=== PATIENT | female | born 1950 | race Caucasian/White ===

== ENCOUNTER 2016-09-07 07:08 | Outpatient (CLI) | payer MEDICARE, OTHER | END 2016-09-07 07:09 | disposition home or self-care (01) | DX: E78.5 Hyperlipidemia, unspecified (principal); E03.9 Hypothyroidism, unspecified ==

== ENCOUNTER 2016-09-28 11:02 | Outpatient (CLI) | payer MEDICARE, OTHER | END 2016-09-28 11:03 | disposition home or self-care (01) | DX: E78.5 Hyperlipidemia, unspecified (principal); R42 Dizziness and giddiness ==

== ENCOUNTER 2017-03-01 12:44 | Outpatient (CLI) | payer MEDICARE, OTHER ==
--- NOTE | 2017-03-02 12:39 | Mammography Report ---
DIGITAL SCREENING MAMMOGRAM: 03/01/2017 CLINICAL INDICATION: A 66-year-old nulliparous patient, for screening. COMPARISON: 01/2016, 12/2014, 12/2013, 09/2012, 09/2011, 08/2010, 08/2009. TECHNIQUE: Routine CC and MLO projections were obtained of the breasts. FINDINGS: The breasts demonstrate scattered fibroglandular densities bilaterally. Coarse and punctat e, typically benign calcifications are present. No suspicious masses, clustered microcalcifications, or regions of architectural distortion are identified. IMPRESSION: BENIGN FINDINGS. RECOMMENDATION: ROUTINE ANNUAL SCREENING UNLESS OTHERWISE CLINICALLY INDICATED. BIRADS CATEGORY 2-BENIGN FINDINGS. STANDARD QUALIFYING STATEMENTS 1. This examination was reviewed with the aid of Computer-Aided Detection (CAD). 2. A negative or benign imaging report should not delay biopsy if clinically suspicious findings are present. Consider surgical consultation if warranted. More than 5% of cancers are not identified by i maging. 3. Dense breasts may obscure an underlying neoplasm. JOB #: [id number] EXT JOB #:[id number]
== END 2017-03-01 12:45 | disposition home or self-care (01) ==
LOC: DI 12:44
PROVIDERS: ATTEND Family Medicine
DX: Z12.31 Encounter for screening mammogram for malignant neoplasm of breast (principal)
CPT/HCPCS: 77067

== ENCOUNTER 2017-03-02 15:31 | Outpatient (CLI) | payer MEDICARE, OTHER ==
[2017-03-02 13:42] LABS: ALBUMIN/GLOBULIN RATIO 1.2 (1.0-2.2); BILIRUBIN,TOTAL 0.6 mg/dL (0.2-1.0); BUN - BLOOD UREA NITROGEN 21 mg/dL (6-20); CALCIUM 9.5 mg/dL (8.5-10.3); CARBON DIOXIDE - CO2 26 mmol/L (21-32); CHLORIDE 104 mmol/L (101-111); CHOLESTEROL 179 mg/dL; CREATININE 0.9 mg/dL (0.4-1.0); GFR - MDRD 62 (>89); GLUCOSE 88 mg/dL (70-100); HDL CHOLESTEROL 90 mg/dL; LDL/HDL RATIO 0.9 (<4.4); POTASSIUM 3.7 mmol/L (3.5-5.0); SODIUM 137 mmol/L (135-145); TOTAL PROTEIN 7.6 g/dL (6.7-8.2); TRIGLYCERIDES 62 mg/dL; VLDL CHOLESTEROL 12 mg/dL
== END 2017-03-02 15:32 | disposition home or self-care (01) ==
LOC: LAB.WCP 15:31
PROVIDERS: ATTEND Family Medicine
DX: E78.5 Hyperlipidemia, unspecified (principal); E03.9 Hypothyroidism, unspecified
CPT/HCPCS: 36415; 80053; 80061; 84443

== ENCOUNTER 2017-09-12 08:00 | Outpatient (CLI) | payer MEDICARE, OTHER ==
[2017-09-12 13:18] LABS: BASOPHILS % (AUTO) 0.6 %; HGB - HEMOGLOBIN 13.6 g/dL (12.0-16.0); LYMPHOCYTES # (AUTO) 1.4 10^3/uL (1.5-3.5); LYMPHOCYTES % (AUTO) 33.7 %; MEAN CORPUSCULAR HEMOGLOBIN 31.9 pg (27.0-31.0); MEAN CORPUSCULAR HGB CONC 33.7 g/dL (32.0-36.0); MEAN CORPUSCULAR VOLUME 94.7 fL (81.0-99.0); MEAN PLATELET VOLUME 9.7 fL (7.9-10.8); MONOCYTES # (AUTO) 0.3 10^3/uL (0.0-1.0); MONOCYTES % (AUTO) 8.1 %; NEUTROPHILS # (AUTO) 2.3 10^3/uL (1.5-6.6); NEUTROPHILS % (AUTO) 56.6 %; PLT - PLATELET COUNT 167 10^3/uL (130-450); RED BLOOD COUNT 4.25 10^6/uL (4.20-5.40); RED CELL DISTRIBUTION WIDTH 12.5 % (12.0-15.0); WHITE BLOOD COUNT 4.1 x10^3/uL (4.8-10.8)
[2017-09-12 13:49] LABS: ALBUMIN 4.3 g/dL (3.2-5.5); ALBUMIN/GLOBULIN RATIO 1.3 (1.0-2.2); ALKALINE PHOSPHATASE 43 IU/L (42-121); ALT ALANINE AMINOTRANSFERASE 21 IU/L (10-60); AST ASPARTATE AMINOTRANSFERASE 23 IU/L (10-42); BILIRUBIN,TOTAL 0.5 mg/dL (0.2-1.0); BUN - BLOOD UREA NITROGEN 17 mg/dL (6-20); CALCIUM 9.4 mg/dL (8.5-10.3); CARBON DIOXIDE - CO2 26 mmol/L (21-32); CHLORIDE 104 mmol/L (101-111); CHOL/HDL RATIO 2.3 (<4.4); CHOLESTEROL 182 mg/dL; CREATININE 0.8 mg/dL (0.4-1.0); GFR - MDRD 71 (>89); GLUCOSE 90 mg/dL (70-100); HDL CHOLESTEROL 80 mg/dL; LDL CHOLESTEROL,CALCULATED 93 mg/dL; LDL/HDL RATIO 1.2 (<4.4); SODIUM 136 mmol/L (135-145); TOTAL PROTEIN 7.5 g/dL (6.7-8.2); VLDL CHOLESTEROL 9 mg/dL
== END 2017-09-12 08:01 | disposition home or self-care (01) ==
LOC: LAB.WCP 08:00
PROVIDERS: ATTEND Family Medicine
DX: E78.00 Pure hypercholesterolemia, unspecified (principal); E78.5 Hyperlipidemia, unspecified; E03.9 Hypothyroidism, unspecified; R42 Dizziness and giddiness
CPT/HCPCS: 36415; 80053; 80061; 83721; 84443; 85025

== ENCOUNTER 2018-03-21 11:42 | Outpatient (CLI) | payer MEDICARE, OTHER ==
--- NOTE | 2018-03-22 11:49 | Mammography Report ---
Reason: SCREENING MAMMO Procedure Date: 03/21/2018 Accession Number: [id number] / [id number] Procedure: [facility] - Screening Mammo w/Edy CPT Code: FULL RESULT: EXAM: Screening Mammo w/Edy DATE: 03/21/2018 12:04 PM CLINICAL HISTORY: Nulliparous patient for routine screening. TECHNIQUE: Bilateral CC and MLO views were obtained. COMPARISON: 03/01/2017, 01/27/2016, 01/19/2015, 01/14/2014, 10/07/2012, 10/05/2011 and 09/13/2010 FINDINGS: There are scattered fibroglandular densities. There is no significant interval change. No suspicious masses, clustered microcalcifications, or regions of architectural distortion are identified. IMPRESSION: Negative examination RECOMMENDATION: Routine annual screening unless otherwise clinically indicated. BIRADS CATEGORY 1: Negative STANDARD QUALIFYING STATEMENTS: 1. This examination was not reviewed with the aid of Computer-Aided Detection (CAD). 2. A negative or benign imaging report should not delay biopsy if clinically suspicious findings are present. Consider surgical consultation if warrented. More than 5% of cancers are not identified by imaging. 3. Dense breasts may obscure an underlying neoplasm. 4. This examination was reviewed with the aid of 3D breast imaging (tomosynthesis).
== END 2018-03-21 11:43 | disposition home or self-care (01) ==
LOC: DI 11:42
DX: Z12.31 Encounter for screening mammogram for malignant neoplasm of breast (principal)
CPT/HCPCS: 77063; 77067

== ENCOUNTER 2018-03-28 07:05 | Outpatient (CLI) | payer MEDICARE, OTHER ==
[2018-03-28 12:32] LABS: BASOPHILS % (AUTO) 0.4 %; EOSINOPHILS # (AUTO) 0.1 10^3/uL (0.0-0.7); EOSINOPHILS % (AUTO) 1.7 %; HGB - HEMOGLOBIN 13.5 g/dL (12.0-16.0); LYMPHOCYTES # (AUTO) 1.4 10^3/uL (1.5-3.5); LYMPHOCYTES % (AUTO) 32.9 %; MEAN CORPUSCULAR HGB CONC 34.7 g/dL (32.0-36.0); MEAN CORPUSCULAR VOLUME 95.2 fL (81.0-99.0); MEAN PLATELET VOLUME 9.4 fL (7.9-10.8); MONOCYTES # (AUTO) 0.4 10^3/uL (0.0-1.0); MONOCYTES % (AUTO) 9.5 %; NEUTROPHILS # (AUTO) 2.3 10^3/uL (1.5-6.6); NEUTROPHILS % (AUTO) 55.5 %; PLT - PLATELET COUNT 196 10^3/uL (130-450); RED BLOOD COUNT 4.09 10^6/uL (4.20-5.40); RED CELL DISTRIBUTION WIDTH 12.6 % (12.0-15.0); WHITE BLOOD COUNT 4.1 x10^3/uL (4.8-10.8)
[2018-03-28 12:36] LABS: ALBUMIN 4.1 g/dL (3.2-5.5); ALBUMIN/GLOBULIN RATIO 1.2 (1.0-2.2); ALKALINE PHOSPHATASE 53 IU/L (42-121); ALT ALANINE AMINOTRANSFERASE 19 IU/L (10-60); AST ASPARTATE AMINOTRANSFERASE 21 IU/L (10-42); BILIRUBIN,TOTAL 0.7 mg/dL (0.2-1.0); BUN - BLOOD UREA NITROGEN 18 mg/dL (6-20); CALCIUM 9.5 mg/dL (8.5-10.3); CARBON DIOXIDE - CO2 26 mmol/L (21-32); CHLORIDE 103 mmol/L (101-111); CHOL/HDL RATIO 1.9 (<4.4); CHOLESTEROL 175 mg/dL; CREATININE 0.8 mg/dL (0.4-1.0); GFR - MDRD 71 (>89); GLUCOSE 96 mg/dL (70-100); HDL CHOLESTEROL 94 mg/dL; LDL CHOLESTEROL,CALCULATED 69 mg/dL; LDL/HDL RATIO 0.7 (<4.4); SODIUM 137 mmol/L (135-145); TOTAL PROTEIN 7.5 g/dL (6.7-8.2); VLDL CHOLESTEROL 12 mg/dL
== END 2018-03-28 07:06 ==
LOC: LAB.WCP 07:05
PROVIDERS: ATTEND Family Medicine
DX: E78.5 Hyperlipidemia, unspecified (principal); E03.9 Hypothyroidism, unspecified; K50.90 Crohn's disease, unspecified, without complications; R42 Dizziness and giddiness
CPT/HCPCS: 36415; 80053; 80061; 83721; 84443; 85025

== ENCOUNTER 2018-11-08 08:00 | Outpatient (CLI) | payer MEDICARE, OTHER ==
[2018-11-08 14:23] LABS: ALBUMIN/GLOBULIN RATIO 1.2 (1.0-2.2); ALKALINE PHOSPHATASE 55 IU/L (42-121); ALT ALANINE AMINOTRANSFERASE 19 IU/L (10-60); AST ASPARTATE AMINOTRANSFERASE 23 IU/L (10-42); BILIRUBIN,TOTAL 0.8 mg/dL (0.2-1.0); BUN - BLOOD UREA NITROGEN 14 mg/dL (6-20); CALCIUM 9.8 mg/dL (8.5-10.3); CARBON DIOXIDE - CO2 25 mmol/L (21-32); CHLORIDE 104 mmol/L (101-111); CHOLESTEROL 181 mg/dL; CREATININE 0.9 mg/dL (0.4-1.0); GFR - MDRD 62 (>89); GLUCOSE 90 mg/dL (70-100); HDL CHOLESTEROL 92 mg/dL; LDL CHOLESTEROL,CALCULATED 73 mg/dL; LDL/HDL RATIO 0.8 (<4.4); SODIUM 138 mmol/L (135-145); TOTAL PROTEIN 7.3 g/dL (6.7-8.2); VLDL CHOLESTEROL 16 mg/dL
== END 2018-11-08 23:59 | disposition home or self-care (01) ==
LOC: LAB.WCP 08:00
PROVIDERS: ATTEND Family Medicine
DX: E78.5 Hyperlipidemia, unspecified (principal); E03.9 Hypothyroidism, unspecified
CPT/HCPCS: 36415; 80053; 80061; 83721; 84443

== ENCOUNTER 2018-12-04 08:00 | Outpatient (CLI) | payer MEDICARE, OTHER ==
[2018-12-04 18:38] LABS: BASOPHILS % (AUTO) 0.2 %; EOSINOPHILS % (AUTO) 0.6 %; HGB - HEMOGLOBIN 12.2 g/dL (12.0-16.0); LYMPHOCYTES # (AUTO) 1.8 10^3/uL (1.5-3.5); MEAN CORPUSCULAR HEMOGLOBIN 31.6 pg (27.0-31.0); MEAN CORPUSCULAR HGB CONC 32.5 g/dL (32.0-36.0); MEAN CORPUSCULAR VOLUME 97.2 fL (81.0-99.0); MEAN PLATELET VOLUME 11.5 fL (7.9-10.8); MONOCYTES # (AUTO) 0.5 10^3/uL (0.0-1.0); MONOCYTES % (AUTO) 8.8 %; NEUTROPHILS # (AUTO) 2.9 10^3/uL (1.5-6.6); NEUTROPHILS % (AUTO) 56.2 %; PLT - PLATELET COUNT 180 10^3/uL (130-450); RED BLOOD COUNT 3.86 10^6/uL (4.20-5.40); RED CELL DISTRIBUTION WIDTH 12.4 % (12.0-15.0); WHITE BLOOD COUNT 5.1 x10^3/uL (4.8-10.8)
[2018-12-04 18:41] LABS: ALBUMIN/GLOBULIN RATIO 1.3 (1.0-2.2); BILIRUBIN,TOTAL 0.6 mg/dL (0.2-1.0); CALCIUM 9.5 mg/dL (8.5-10.3); CREATININE 0.8 mg/dL (0.4-1.0)
== END 2018-12-04 23:59 | disposition home or self-care (01) ==
LOC: LAB.WCP 08:00
PROVIDERS: ATTEND Family Medicine
DX: E78.5 Hyperlipidemia, unspecified (principal); K50.90 Crohn's disease, unspecified, without complications
CPT/HCPCS: 36415; 80053; 85025

== ENCOUNTER 2018-12-24 12:06 | Outpatient (CLI) | payer MEDICARE, OTHER ==
[2018-12-24 20:40] LABS: CANDIDA GROUP DNA NEGATIVE (NEGATIVE); CANDIDA KRUSEI DNA NEGATIVE (NEGATIVE); TRICHOMONAS VAGINALIS DNA NEGATIVE (NEGATIVE)
== END 2018-12-24 23:59 | disposition home or self-care (01) ==
LOC: LAB.R 12:06
PROVIDERS: ATTEND Family Medicine
DX: N89.8 Other specified noninflammatory disorders of vagina (principal)
CPT/HCPCS: 87661; 87801

== ENCOUNTER 2019-01-14 13:05 | Outpatient (CLI) | payer MEDICARE, OTHER ==
--- NOTE | 2019-01-14 15:22 | DEXA Report ---
Reason: MENOPAUSE,SURGICAL.POSTMENOPAUSAL STATUS Procedure Date: 01/14/2019 Accession Number: [id number] / [id number] Procedure: DEX - Dexa Spine and/or Hip CPT Code: FULL RESULT: EXAM: Dexa Spine and/or Hip DATE: 01/14/2019 1:44 PM CLINICAL HISTORY: MENOPAUSE,SURGICAL.POSTMENOPAUSAL STATUS TECHNIQUE: Dual energy x-ray absorptiometry (DXA) was performed on a [employer] System. Regions measured are the AP Spine, femoral neck, and if needed forearm. COMPARISON: None. In accordance with the International Society for Clinical Densitometry (ISCD) guidelines, data from previous exams may be reanalyzed using current recommendations and techniques. This is done to allow a more accurate basis for comparison with the current study. FINDINGS: The data for the lumbar spine is as follows: BMD (g/cm/cm) T-SCORE Z-SCORE REGION L1 0.942 -1.6 0.2 L2 1.103 -0.8 0.9 L3 1.238 0.3 2.1 L4 1.304 0.9 2.6 TOTAL 1.170 -0.1 1.7 NOTE: All evaluable vertebrae are used for classification The data for the hip is as follows: BMD (g/cm/cm) T-SCORE Z-SCORE REGION Neck 0.835 -1.5 0.3 TOTAL 0.828 -1.4 0.1 NOTE: The femoral neck or total proximal femur, whichever is lowest, is used for classification. IMPRESSION: THE WHO CLASSIFICATION BASED ON THE INTERNATIONAL REFERENCE STANDARD IS OSTEOPENIA. THE FRACTURE RISK IS INCREASED. RECOMMENDATION: Patients with diagnosis of osteoporosis or osteopenia should have regular bone mineral density assessment. For those eligible for Medicare, routine testing is allowed once every 2 years. Testing frequency can be increased for patients who have rapidly progressing disease or for those who are receiving medical therapy to restore bone mass. COMMENT: World Health Organization (WHO) definitions for osteoporosis and osteopenia: NORMAL BMD: T-score at -1.0 or higher, fracture risk is low OSTEOPENIA BMD: T-score between -1.0 and -2.5, fracture risk is increased. OSTEOPOROSIS BMD: T-score at -2.5 or lower, fracture risk is high. National Osteoporosis Foundation recommends: 1. Obtain adequate dietary calcium (at least 1200 mg per day) and vitamin D (400-800 international units per day). 2. Participate, as appropriate, in regular weightbearing and muscle-strengthening exercise. 3. Avoid tobacco use and reduce alcohol and caffeine intake. 4. For more detailed information see the website at www.NOF.org.
== END 2019-01-14 13:06 | disposition home or self-care (01) ==
LOC: DI 13:05
PROVIDERS: ATTEND Family Medicine
DX: M85.88 Other specified disorders of bone density and structure, other site (principal)
CPT/HCPCS: 77080

== ENCOUNTER 2019-03-26 15:39 | Outpatient (CLI) | payer MEDICARE, OTHER ==
--- NOTE | 2019-03-28 12:33 | Mammography Report ---
Reason: SCREENING MAMMO Procedure Date: 03/26/2019 Accession Number: [id number] / [id number] Procedure: [facility] - Screening Mammo w/Edy CPT Code: Final Report FULL RESULT: EXAM: Screening Mammo w/Edy DATE: 03/26/2019 4:27 PM CLINICAL HISTORY: Nulliparous patient for routine screening TECHNIQUE: (B) - Bilateral CC and MLO views were obtained. COMPARISON: 03/21/2018, 03/01/2017, 01/27/2016, 01/19/2015, 01/14/2014, 10/07/2012, 10/05/2011, 09/13/2010 and 09/09/2009 PARENCHYMAL PATTERN: (A) - The breasts demonstrate scattered fibroglandular densities bilaterally. FINDINGS: No significant interval change There are no suspicious masses, calcifications, or areas of distortion. IMPRESSION: Negative examination. BI-RADS category 1. RECOMMENDATION: (ANNUAL) - Recommend routine annual screening mammography. BI-RADS CATEGORY: (1) - Negative. STANDARD QUALIFYING STATEMENTS: 1. This examination was not reviewed with the aid of Computer-Aided Detection (CAD). 2. A negative or benign imaging report should not preclude biopsy if clinically suspicious findings are present. 3. Dense breasts may obscure an underlying neoplasm. 4. This examination was reviewed with the aid of 3D breast imaging (tomosynthesis).
== END 2019-03-26 15:40 | disposition home or self-care (01) ==
LOC: DI 15:39
DX: Z12.31 Encounter for screening mammogram for malignant neoplasm of breast (principal)
CPT/HCPCS: 77063; 77067

== ENCOUNTER 2019-05-26 08:00 | Outpatient (CLI) | payer MEDICARE, OTHER ==
[2019-05-26 13:35] LABS: BASOPHILS % (AUTO) 0.4 %; EOSINOPHILS % (AUTO) 0.7 %; HGB - HEMOGLOBIN 13.5 g/dL (12.0-16.0); LYMPHOCYTES # (AUTO) 1.3 10^3/uL (1.5-3.5); LYMPHOCYTES % (AUTO) 28.7 %; MEAN CORPUSCULAR HEMOGLOBIN 32.1 pg (27.0-31.0); MEAN CORPUSCULAR HGB CONC 32.8 g/dL (32.0-36.0); MEAN CORPUSCULAR VOLUME 97.9 fL (81.0-99.0); MEAN PLATELET VOLUME 10.8 fL (7.9-10.8); MONOCYTES # (AUTO) 0.3 10^3/uL (0.0-1.0); MONOCYTES % (AUTO) 6.8 %; NEUTROPHILS # (AUTO) 2.9 10^3/uL (1.5-6.6); NEUTROPHILS % (AUTO) 63.2 %; PLT - PLATELET COUNT 193 10^3/uL (130-450); WHITE BLOOD COUNT 4.5 x10^3/uL (4.8-10.8)
[2019-05-26 13:54] LABS: ALBUMIN 4.1 g/dL (3.2-5.5); ALBUMIN/GLOBULIN RATIO 1.5 (1.0-2.2); ALKALINE PHOSPHATASE 53 IU/L (42-121); ALT ALANINE AMINOTRANSFERASE 29 IU/L (10-60); AST ASPARTATE AMINOTRANSFERASE 25 IU/L (10-42); BILIRUBIN,TOTAL 0.7 mg/dL (0.2-1.0); BUN - BLOOD UREA NITROGEN 20 mg/dL (6-20); CALCIUM 9.4 mg/dL (8.5-10.3); CARBON DIOXIDE - CO2 27 mmol/L (21-32); CHLORIDE 103 mmol/L (101-111); CHOL/HDL RATIO 2.1 (<4.4); CHOLESTEROL 203 mg/dL; CREATININE 0.8 mg/dL (0.4-1.0); GFR - MDRD 71 (>89); GLUCOSE 95 mg/dL (70-100); HDL CHOLESTEROL 96 mg/dL; LDL CHOLESTEROL,CALCULATED 91 mg/dL; LDL/HDL RATIO 0.9 (<4.4); SODIUM 138 mmol/L (135-145); TOTAL PROTEIN 6.9 g/dL (6.7-8.2); VLDL CHOLESTEROL 16 mg/dL
== END 2019-05-26 23:59 | disposition home or self-care (01) ==
LOC: LAB.WCP 08:00
PROVIDERS: ATTEND Physician Assistant Medical
DX: E78.5 Hyperlipidemia, unspecified (principal); K50.90 Crohn's disease, unspecified, without complications
CPT/HCPCS: 36415; 80053; 80061; 83721; 85025

== ENCOUNTER 2019-11-25 08:00 | Outpatient (CLI) | payer MEDICARE, OTHER ==
[2019-11-25 11:58] LABS: BASOPHILS % (AUTO) 0.4 %; EOSINOPHILS # (AUTO) 0.1 10^3/uL (0.0-0.7); EOSINOPHILS % (AUTO) 1.8 %; HGB - HEMOGLOBIN 13.4 g/dL (12.0-16.0); LYMPHOCYTES # (AUTO) 1.4 10^3/uL (1.5-3.5); LYMPHOCYTES % (AUTO) 31.4 %; MEAN CORPUSCULAR HEMOGLOBIN 32.4 pg (27.0-31.0); MEAN CORPUSCULAR HGB CONC 32.4 g/dL (32.0-36.0); MEAN PLATELET VOLUME 11.2 fL (7.9-10.8); MONOCYTES # (AUTO) 0.4 10^3/uL (0.0-1.0); NEUTROPHILS # (AUTO) 2.6 10^3/uL (1.5-6.6); NEUTROPHILS % (AUTO) 58.2 %; PLT - PLATELET COUNT 196 10^3/uL (130-450); RED BLOOD COUNT 4.13 10^6/uL (4.20-5.40); RED CELL DISTRIBUTION WIDTH 12.4 % (12.0-15.0); WHITE BLOOD COUNT 4.5 x10^3/uL (4.8-10.8)
[2019-11-25 12:13] LABS: ALBUMIN 4.3 g/dL (3.2-5.5); ALBUMIN/GLOBULIN RATIO 1.6 (1.0-2.2); BILIRUBIN,TOTAL 0.7 mg/dL (0.2-1.0); CALCIUM 9.7 mg/dL (8.5-10.3); CREATININE 0.8 mg/dL (0.4-1.0)
== END 2019-11-25 23:59 | disposition home or self-care (01) ==
LOC: LAB.WCP 08:00
PROVIDERS: ATTEND Physician Assistant Medical
DX: K50.90 Crohn's disease, unspecified, without complications (principal); E03.9 Hypothyroidism, unspecified
CPT/HCPCS: 36415; 80053; 84443; 85025

== ENCOUNTER 2020-05-11 08:00 | Outpatient (CLI) | payer MEDICARE, OTHER ==
[2020-05-11 14:13] LABS: ALBUMIN 4.3 g/dL (3.2-5.5); ALBUMIN/GLOBULIN RATIO 1.5 (1.0-2.2); ALKALINE PHOSPHATASE 53 IU/L (42-121); ALT ALANINE AMINOTRANSFERASE 20 IU/L (10-60); AST ASPARTATE AMINOTRANSFERASE 21 IU/L (10-42); BILIRUBIN,TOTAL 0.8 mg/dL (0.2-1.0); BUN - BLOOD UREA NITROGEN 21 mg/dL (6-20); CARBON DIOXIDE - CO2 27 mmol/L (21-32); CHLORIDE 106 mmol/L (101-111); CHOL/HDL RATIO 2.2 (<4.4); CHOLESTEROL 194 mg/dL; CREATININE 0.8 mg/dL (0.4-1.0); GLUCOSE 99 mg/dL (70-100); HDL CHOLESTEROL 89 mg/dL; LDL CHOLESTEROL,CALCULATED 96 mg/dL; LDL/HDL RATIO 1.1 (<4.4); SODIUM 141 mmol/L (135-145); TOTAL PROTEIN 7.1 g/dL (6.7-8.2); VLDL CHOLESTEROL 9 mg/dL
== END 2020-05-11 23:59 | disposition home or self-care (01) ==
LOC: LAB.WCP 08:00
PROVIDERS: ATTEND Physician Assistant Medical
DX: E78.5 Hyperlipidemia, unspecified (principal)
CPT/HCPCS: 36415; 80053; 80061; 83721; 84443

== ENCOUNTER 2020-05-12 15:36 | Outpatient (CLI) | payer MEDICARE, OTHER ==
--- NOTE | 2020-05-13 09:38 | Mammography Report ---
BILATERAL DIGITAL SCREENING MAMMOGRAM 3D/2D: 05/12/2020 CLINICAL: Routine screening. Comparison is made to exams dated: 03/26/2019 mammogram, 03/21/2018 mammogram, 03/01/2017 mammogram, 01/27/2016 mammogram, 01/19/2015 mammogram, and 01/14/2014 mammogram - [facility]. The tissue of both breasts is heterogeneously dense. This may lower the sensitivity of mammography. No significant masses, calcifications, or other findings are seen in either breast. There has been no significant interval change. IMPRESSION: NEGATIVE There is no mammographic evidence of malignancy. A 1 year screening mammogram is recommended. This exam was interpreted at Station ID: [id number]. NOTE: For mammograms, a report in lay terms will be sent to the patient. Approximately 15% of breast malignancies will not be visualized mammographically. In the management of a palpable breast mass, a negative mammogram must not discourage biopsy of a clinically suspicious lesion. Electronically Signed By: Ha Wasserman M.D. ddp/penrad:05/12/2020 16:16:57 ACR BI-RADS Category 1: Negative 3341F PARENCHYMAL PATTERN: (D) - The breast(s) demonstrate(s) heterogeneously dense fibroglandular denny stearns. BI-RADS CATEGORY: (1) - 1 RECOMMENDATION: (ANNUAL) - Recommend routine annual screening mammography. [id number] 1 year screening LATERALITY: (B)
== END 2020-05-12 15:37 | disposition home or self-care (01) ==
LOC: DI 15:36
DX: Z12.31 Encounter for screening mammogram for malignant neoplasm of breast (principal)
CPT/HCPCS: 77067

== ENCOUNTER 2020-11-09 08:00 | Outpatient (CLI) | payer MEDICARE, OTHER ==
[2020-11-09 12:25] LABS: ALBUMIN 4.4 g/dL (3.2-5.5); ALBUMIN/GLOBULIN RATIO 1.5 (1.0-2.2); ALKALINE PHOSPHATASE 57 IU/L (42-121); ALT ALANINE AMINOTRANSFERASE 20 IU/L (10-60); AST ASPARTATE AMINOTRANSFERASE 21 IU/L (10-42); BILIRUBIN,TOTAL 0.7 mg/dL (0.2-1.0); BUN - BLOOD UREA NITROGEN 14 mg/dL (6-20); CALCIUM 9.9 mg/dL (8.5-10.3); CARBON DIOXIDE - CO2 27 mmol/L (21-32); CHLORIDE 102 mmol/L (101-111); CHOL/HDL RATIO 2.1 (<4.4); CHOLESTEROL 199 mg/dL; CREATININE 0.9 mg/dL (0.4-1.0); GFR - MDRD 62 (>89); GLUCOSE 94 mg/dL (70-100); HDL CHOLESTEROL 97 mg/dL; LDL CHOLESTEROL,CALCULATED 88 mg/dL; LDL/HDL RATIO 0.9 (<4.4); POTASSIUM 3.8 mmol/L (3.5-5.0); SODIUM 139 mmol/L (135-145); TOTAL PROTEIN 7.4 g/dL (6.7-8.2); TRIGLYCERIDES 68 mg/dL; VLDL CHOLESTEROL 14 mg/dL
== END 2020-11-09 23:59 | disposition home or self-care (01) ==
LOC: LAB.WCP 08:00
PROVIDERS: ATTEND Physician Assistant Medical
DX: E78.5 Hyperlipidemia, unspecified (principal); E55.9 Vitamin D deficiency, unspecified
CPT/HCPCS: 36415; 80053; 80061; 82306; 83721

== ENCOUNTER 2021-05-11 07:01 | Outpatient (CLI) | payer MEDICARE, OTHER ==
[2021-05-11 12:36] LABS: ALBUMIN/GLOBULIN RATIO 1.3 (1.0-2.2); ALKALINE PHOSPHATASE 55 IU/L (42-121); ALT ALANINE AMINOTRANSFERASE 20 IU/L (10-60); AST ASPARTATE AMINOTRANSFERASE 20 IU/L (10-42); BILIRUBIN,TOTAL 0.7 mg/dL (0.2-1.0); BUN - BLOOD UREA NITROGEN 15 mg/dL (6-20); CALCIUM 9.6 mg/dL (8.5-10.3); CARBON DIOXIDE - CO2 28 mmol/L (21-32); CHLORIDE 100 mmol/L (101-111); CHOLESTEROL 192 mg/dL; CREATININE 0.8 mg/dL (0.4-1.0); GFR - MDRD 71 (>89); GLUCOSE 92 mg/dL (70-100); HDL CHOLESTEROL 96 mg/dL; LDL CHOLESTEROL,CALCULATED 84 mg/dL; LDL/HDL RATIO 0.9 (<4.4); POTASSIUM 3.5 mmol/L (3.5-5.0); SODIUM 138 mmol/L (135-145); TRIGLYCERIDES 60 mg/dL; VLDL CHOLESTEROL 12 mg/dL
[2021-05-11 12:44] LABS: THYROID STIMULATING HORMONE 3.19 uIU/mL (0.34-5.60)
== END 2021-05-11 23:59 | disposition home or self-care (01) ==
LOC: LAB.WCP 07:01
PROVIDERS: ATTEND Physician Assistant Medical
DX: E03.9 Hypothyroidism, unspecified (principal); N18.9 Chronic kidney disease, unspecified; E78.5 Hyperlipidemia, unspecified
CPT/HCPCS: 36415; 80053; 80061; 83721; 84443

== ENCOUNTER 2021-05-13 11:17 | Outpatient (CLI) | payer MEDICARE, OTHER ==
--- NOTE | 2021-05-16 13:41 | Mammography Report ---
BILATERAL DIGITAL SCREENING MAMMOGRAM 3D/2D: 05/13/2021 CLINICAL: Routine screening. Comparison is made to exams dated: 05/12/2020 mammogram, 03/26/2019 mammogram, 03/21/2018 mammogram, 03/01/2017 mammogram, 01/27/2016 mammogram, and 01/19/2015 mammogram - [facility]. Th e tissue of both breasts is heterogeneously dense. This may lower the sensitivity of mammography. No significant masses, calcifications, or other findings are seen in either breast. There has been no significant interval change. IMPRESSION: NEGATIVE There is no mammographic evidence of malignancy. A 1 year screening mammogram is recommended. This exam was interpreted at Station ID: [id number]. NOTE: For mammograms, a report in lay terms will be sent to the patient. Approximately 15% of breast malignancies will not be visualized mammographically. In the management of a palpable breast mass, a negative mammogram must not discourage biopsy of a clinically suspicious lesion. Electronically Signed By: Gerber Amador M.D. at/reynarad:05/13/2021 13:48:22 ACR BI-RADS Category 1: Negative 3341F PARENCHYMAL PATTERN: (D) - The breast(s) demonstrate(s) heterogeneously dense fibroglandular denny stearns. BI-RADS CATEGORY: (1) - 1 RECOMMENDATION: (ANNUAL) - Recommend routine annual screening mammography. [id number] 1 year screening LATERALITY: (B)
== END 2021-05-13 11:18 | disposition home or self-care (01) ==
LOC: DI 11:17
DX: Z12.31 Encounter for screening mammogram for malignant neoplasm of breast (principal)

== ENCOUNTER 2021-11-15 07:12 | Outpatient (CLI) | payer MEDICARE, OTHER ==
[2021-11-15 12:43] LABS: ALBUMIN 4.1 g/dL (3.2-5.5); ALBUMIN/GLOBULIN RATIO 1.4 (1.0-2.2); ALKALINE PHOSPHATASE 49 IU/L (42-121); ALT ALANINE AMINOTRANSFERASE 16 IU/L (10-60); AST ASPARTATE AMINOTRANSFERASE 19 IU/L (10-42); BILIRUBIN,TOTAL 0.7 mg/dL (0.2-1.0); BUN - BLOOD UREA NITROGEN 14 mg/dL (6-20); CARBON DIOXIDE - CO2 27 mmol/L (21-32); CHLORIDE 102 mmol/L (101-111); CHOLESTEROL 184 mg/dL; CREATININE 0.9 mg/dL (0.4-1.0); GFR - MDRD 61 (>89); GLUCOSE 104 mg/dL (70-100); HDL CHOLESTEROL 94 mg/dL; LDL CHOLESTEROL,CALCULATED 74 mg/dL; SODIUM 139 mmol/L (135-145); TOTAL PROTEIN 7.1 g/dL (6.7-8.2); TRIGLYCERIDES 78 mg/dL; VLDL CHOLESTEROL 16 mg/dL
[2021-11-15 12:44] LABS: LDL/HDL RATIO 0.8 (<4.4)
== END 2021-11-15 07:13 | disposition home or self-care (01) ==
LOC: LAB.N 07:12
PROVIDERS: ATTEND Physician Assistant Medical
DX: E78.5 Hyperlipidemia, unspecified (principal)
CPT/HCPCS: 36415; 80053; 80061; 83721

== ENCOUNTER 2022-05-04 06:51 | Outpatient (CLI) | payer MEDICARE, OTHER ==
[2022-05-04 07:24] LABS: BASOPHILS % (AUTO) 0.4 %; EOSINOPHILS # (AUTO) 0.1 10^3/uL (0.0-0.7); EOSINOPHILS % (AUTO) 1.5 %; HGB - HEMOGLOBIN 13.5 g/dL (12.0-16.0); LYMPHOCYTES # (AUTO) 1.5 10^3/uL (1.5-3.5); LYMPHOCYTES % (AUTO) 32.8 %; MEAN CORPUSCULAR HEMOGLOBIN 31.7 pg (27.0-31.0); MEAN CORPUSCULAR HGB CONC 32.9 g/dL (32.0-36.0); MEAN CORPUSCULAR VOLUME 96.2 fL (81.0-99.0); MEAN PLATELET VOLUME 9.9 fL (7.9-10.8); MONOCYTES # (AUTO) 0.5 10^3/uL (0.0-1.0); MONOCYTES % (AUTO) 10.2 %; NEUTROPHILS # (AUTO) 2.6 10^3/uL (1.5-6.6); NEUTROPHILS % (AUTO) 54.9 %; PLT - PLATELET COUNT 170 10^3/uL (130-450); RED BLOOD COUNT 4.26 10^6/uL (4.20-5.40); RED CELL DISTRIBUTION WIDTH 12.3 % (12.0-15.0); WHITE BLOOD COUNT 4.7 x10^3/uL (4.8-10.8)
[2022-05-04 07:57] LABS: THYROID STIMULATING HORMONE 2.99 uIU/mL (0.34-5.60)
[2022-05-04 08:04] LABS: ALBUMIN 4.2 g/dL (3.2-5.5); ALBUMIN/GLOBULIN RATIO 1.4 (1.0-2.2); ALKALINE PHOSPHATASE 45 IU/L (42-121); ALT ALANINE AMINOTRANSFERASE 18 IU/L (10-60); AST ASPARTATE AMINOTRANSFERASE 20 IU/L (10-42); BILIRUBIN,TOTAL 0.5 mg/dL (0.2-1.0); BUN - BLOOD UREA NITROGEN 17 mg/dL (6-20); CALCIUM 9.9 mg/dL (8.5-10.3); CARBON DIOXIDE - CO2 26 mmol/L (21-32); CHLORIDE 105 mmol/L (101-111); CHOL/HDL RATIO 1.9 (<4.4); CHOLESTEROL 171 mg/dL; CREATININE 0.9 mg/dL (0.4-1.0); GFR - MDRD 61 (>89); GLUCOSE 100 mg/dL (70-100); HDL CHOLESTEROL 91 mg/dL; LDL CHOLESTEROL,CALCULATED 69 mg/dL; LDL/HDL RATIO 0.8 (<4.4); SODIUM 140 mmol/L (135-145); TOTAL PROTEIN 7.2 g/dL (6.7-8.2); TRIGLYCERIDES 56 mg/dL; VLDL CHOLESTEROL 11 mg/dL
== END 2022-05-04 06:52 | disposition home or self-care (01) ==
LOC: LAB 06:51
PROVIDERS: ATTEND Physician Assistant Medical
DX: E78.5 Hyperlipidemia, unspecified (principal); E03.9 Hypothyroidism, unspecified; K50.90 Crohn's disease, unspecified, without complications
CPT/HCPCS: 36415; 80053; 80061; 83721; 84443; 85025

== ENCOUNTER 2022-05-15 14:02 | Outpatient (CLI) | payer MEDICARE, OTHER ==
--- NOTE | 2022-05-16 10:46 | Mammography Report ---
BILATERAL DIGITAL SCREENING MAMMOGRAM 3D/2D: 05/15/2022 CLINICAL: Routine screening. Comparison is made to exams dated: 05/13/2021 mammogram, 05/12/2020 mammogram, 03/26/2019 mammogram, 03/21/2018 mammogram, and 03/01/2017 mammogram - . Both breasts are heterogeneously dense, which may obscure small masses (category c / 51-75% glandular tissue). No significant masses, calcifications, or other findings are seen in either breast. There has been no significant interval change. IMPRESSION: NEGATIVE There is no mammographic evidence of malignancy. A 1 year screening mammogram is recommended. Based on the Tyrer Cuzick model (a risk assessment model) the patients lifetime risk is 5.9% and her 10 year risk is 4.8%. According to the ACR, ACS, and NCCN guidelines, an annual breast MRI exam adolfo g with mammogram is recommended if the patients lifetime risk is 20% or greater. This exam was interpreted at Station ID: [id number]. NOTE: For mammograms, a report in lay terms will be sent to the patient. Approximately 15% of breast malignancies will not be visualized mammographically. In the management of a palpable breast mass, a negative mammogram must not discourage biopsy of a clinically suspicious lesion. Electronically Signed By: Jonathan Garrett M.D. acr/penrad:05/15/2022 17:38:57 ACR BI-RADS Category 1: Negative 3341F PARENCHYMAL PATTERN: (D) - The breast(s) demonstrate(s) heterogeneously dense fibroglandular denny stearns. BI-RADS CATEGORY: (1) - 1 RECOMMENDATION: (ANNUAL) - Recommend routine annual screening mammography. [id number] 1 year screening LATERALITY: (B)
== END 2022-05-15 14:03 | disposition home or self-care (01) ==
LOC: DI 14:02
DX: Z12.31 Encounter for screening mammogram for malignant neoplasm of breast (principal)

== ENCOUNTER 2022-11-14 06:50 | Outpatient (CLI) | payer MEDICARE, OTHER ==
[2022-11-14 07:46] LABS: BASOPHILS % (AUTO) 0.4 %; EOSINOPHILS % (AUTO) 0.4 %; HCT - HEMATOCRIT 41.1 % (37.0-47.0); HGB - HEMOGLOBIN 13.8 g/dL (12.0-16.0); LYMPHOCYTES # (AUTO) 1.1 10^3/uL (1.5-3.5); LYMPHOCYTES % (AUTO) 24.2 %; MEAN CORPUSCULAR HEMOGLOBIN 32.3 pg (27.0-31.0); MEAN CORPUSCULAR HGB CONC 33.6 g/dL (32.0-36.0); MEAN CORPUSCULAR VOLUME 96.3 fL (81.0-99.0); MEAN PLATELET VOLUME 10.5 fL (7.9-10.8); MONOCYTES # (AUTO) 0.3 10^3/uL (0.0-1.0); MONOCYTES % (AUTO) 5.6 %; NEUTROPHILS # (AUTO) 3.2 10^3/uL (1.5-6.6); NEUTROPHILS % (AUTO) 69.2 %; PLT - PLATELET COUNT 173 10^3/uL (130-450); RED BLOOD COUNT 4.27 10^6/uL (4.20-5.40); RED CELL DISTRIBUTION WIDTH 12.3 % (12.0-15.0); WHITE BLOOD COUNT 4.6 x10^3/uL (4.8-10.8)
[2022-11-14 08:06] LABS: ALBUMIN 3.9 g/dL (3.2-5.5); ALBUMIN/GLOBULIN RATIO 1.2 (1.0-2.2); ALKALINE PHOSPHATASE 48 IU/L (42-121); ALT ALANINE AMINOTRANSFERASE 19 IU/L (10-60); AST ASPARTATE AMINOTRANSFERASE 21 IU/L (10-42); BILIRUBIN,TOTAL 0.6 mg/dL (0.2-1.0); BUN - BLOOD UREA NITROGEN 19 mg/dL (6-20); CALCIUM 9.6 mg/dL (8.5-10.3); CARBON DIOXIDE - CO2 28 mmol/L (21-32); CHLORIDE 104 mmol/L (101-111); CHOL/HDL RATIO 1.9 (<4.4); CHOLESTEROL 200 mg/dL; CREATININE 0.9 mg/dL (0.4-1.0); GFR - MDRD 61 (>89); GLUCOSE 106 mg/dL (70-100); HDL CHOLESTEROL 105 mg/dL; LDL CHOLESTEROL,CALCULATED 84 mg/dL; LDL/HDL RATIO 0.8 (<4.4); POTASSIUM 3.9 mmol/L (3.5-5.0); SODIUM 140 mmol/L (135-145); TOTAL PROTEIN 7.2 g/dL (6.7-8.2); TRIGLYCERIDES 54 mg/dL; VLDL CHOLESTEROL 11 mg/dL
[2022-11-14 08:14] LABS: THYROID STIMULATING HORMONE 2.79 uIU/mL (0.34-5.60)
== END 2022-11-14 06:51 | disposition home or self-care (01) ==
LOC: LAB 06:50
PROVIDERS: ATTEND Physician Assistant Medical
DX: E03.9 Hypothyroidism, unspecified (principal); E78.5 Hyperlipidemia, unspecified; J30.9 Allergic rhinitis, unspecified
CPT/HCPCS: 36415; 80053; 80061; 83721; 84443; 85025

== ENCOUNTER 2023-05-23 13:05 | Outpatient (CLI) | payer MEDICARE, OTHER ==
--- NOTE | 2023-05-24 08:26 | Mammography Report ---
BILATERAL DIGITAL SCREENING MAMMOGRAM 3D/2D: 05/23/2023 CLINICAL: Routine screening. Comparison is made to exams dated: 05/15/2022 mammogram, 05/13/2021 mammogram, and 05/12/2020 mammog [facility]. Both breasts are heterogeneously dense, which may obscure small masses (category c / 51-75% glandular tissue). No significant masses, calcifications, or other findings are seen in either breast. There has been no significant interval change. IMPRESSION: NEGATIVE There is no mammographic evidence of malignancy. A 1 year screening mammogram is recommended. Based on the Tyrer Cuzick model (a risk assessment model) the patients lifetime risk is 5.5% and her 10 year risk is 5.0%. According to the ACR, ACS, and NCCN guidelines, an annual breast MRI exam adolfo g with mammogram is recommended if the patients lifetime risk is 20% or greater. This exam was interpreted at Station ID: [id number]. NOTE: For mammograms, a report in lay terms will be sent to the patient. Approximately 15% of breast malignancies will not be visualized mammographically. In the management of a palpable breast mass, a negative mammogram must not discourage biopsy of a clinically suspicious lesion. Electronically Signed By: Vicente lindsey/sylvester:05/23/2023 14:44:47 letter sent: No_Letter ACR BI-RADS Category 1: Negative 3341F PARENCHYMAL PATTERN: (D) - The breast(s) demonstrate(s) heterogeneously dense fibroglandular denny stearns. BI-RADS CATEGORY: (1) - 1 Mammogram [id number] 1 year screening LATERALITY: (B)
== END 2023-05-23 13:06 | disposition home or self-care (01) ==
LOC: DI 13:05
DX: Z12.31 Encounter for screening mammogram for malignant neoplasm of breast (principal); R92.333 Mammographic heterogeneous density, bilateral breasts

== ENCOUNTER 2023-06-05 06:50 | Outpatient (CLI) | payer MEDICARE, OTHER ==
[2023-06-05 07:30] LABS: ALBUMIN 4.4 g/dL (3.2-5.5); ALBUMIN/GLOBULIN RATIO 1.6 (1.0-2.2); ALKALINE PHOSPHATASE 61 IU/L (42-121); ALT ALANINE AMINOTRANSFERASE 13 IU/L (10-60); AST ASPARTATE AMINOTRANSFERASE 16 IU/L (10-42); BILIRUBIN,TOTAL 0.4 mg/dL (0.2-1.0); BUN - BLOOD UREA NITROGEN 18 mg/dL (6-20); CALCIUM 10.2 mg/dL (8.5-10.3); CARBON DIOXIDE - CO2 27 mmol/L (21-32); CHLORIDE 103 mmol/L (101-111); CHOLESTEROL 188 mg/dL; CREATININE 0.9 mg/dL (0.6-1.3); GFR - MDRD 61 (>89); GLUCOSE 94 mg/dL (74-104); HDL CHOLESTEROL 95 mg/dL; LDL CHOLESTEROL,CALCULATED 81 mg/dL; LDL/HDL RATIO 0.9 (<4.4); SODIUM 137 mmol/L (135-145); TOTAL PROTEIN 7.2 g/dL (6.4-8.9); TRIGLYCERIDES 59 mg/dL (48-352); VLDL CHOLESTEROL 12 mg/dL
== END 2023-06-05 06:51 | disposition home or self-care (01) ==
LOC: LAB 06:50
PROVIDERS: ATTEND Physician Assistant Medical
DX: E78.5 Hyperlipidemia, unspecified (principal)
CPT/HCPCS: 36415; 80053; 80061; 83721

== ENCOUNTER 2023-08-23 09:51 | Outpatient (CLI) | payer MEDICARE, OTHER ==
--- NOTE | 2023-08-23 19:46 | DEXA Report ---
PROCEDURE: Dexa Spine and/or Hip INDICATIONS: POST MENOPAUSAL TECHNIQUE: Dual energy x-ray absorptiometry (DEXA) was performed in the regions detailed below. COMPARISON: None. FINDINGS: Lumbar Spine: Bone Mineral Density 1.115 g/cm/cm,T score -0.5. Previously -0.1 Left Femoral Neck: Bone Mineral Density 0.796 g/cm/cm, T score -1.7. Previously -1.5 Left Total Hip: Bone Mineral Density 0.815 g/cm/cm,T score -1.5. Previously -1.4 (T score greater or equal to -1.0: NORMAL) (T score from -1.1 to -2.4: OSTEOPENIA) (T score less than or equal to -2.5 to: OSTEOPOROSIS) IMPRESSION: Worsening osteopenia Patients with diagnosis of osteoporosis or osteopenia should have regular bone mineral density assess ment. For those eligible for Medicare, routine testing is allowed once every 2 years. Testing frequ ency can be increased for patients who have rapidly progressing disease or for those who are receivin g medical therapy to restore bone mass. Reviewed by: Willem Madrid MD on 08/23/2023 6:45 PM AMY Approved by: Willem Madrid MD on 08/23/2023 6:45 PM AKDT Station ID: [id number]
== END 2023-08-23 09:52 | disposition home or self-care (01) ==
LOC: DI 09:51
PROVIDERS: ATTEND Physician Assistant Medical
DX: M85.89 Other specified disorders of bone density and structure, multiple sites (principal); Z78.0 Asymptomatic menopausal state

== ENCOUNTER 2024-01-02 06:54 | Outpatient (CLI) | payer MEDICARE, OTHER ==
[2024-01-02 07:06] LABS: BASOPHILS % (AUTO) 0.4 %; EOSINOPHILS % (AUTO) 0.7 %; HCT - HEMATOCRIT 39.8 % (37.0-47.0); HGB - HEMOGLOBIN 13.2 g/dL (12.0-16.0); LYMPHOCYTES # (AUTO) 1.4 10^3/uL (1.5-3.5); LYMPHOCYTES % (AUTO) 32.1 %; MEAN CORPUSCULAR HEMOGLOBIN 32.4 pg (27.0-31.0); MEAN CORPUSCULAR HGB CONC 33.2 g/dL (32.0-36.0); MEAN CORPUSCULAR VOLUME 97.8 fL (81.0-99.0); MEAN PLATELET VOLUME 9.9 fL (7.9-10.8); MONOCYTES # (AUTO) 0.3 10^3/uL (0.0-1.0); MONOCYTES % (AUTO) 7.3 %; NEUTROPHILS # (AUTO) 2.7 10^3/uL (1.5-6.6); NEUTROPHILS % (AUTO) 59.3 %; PLT - PLATELET COUNT 171 10^3/uL (130-450); RED BLOOD COUNT 4.07 10^6/uL (4.20-5.40); RED CELL DISTRIBUTION WIDTH 12.4 % (12.0-15.0); WHITE BLOOD COUNT 4.5 x10^3/uL (4.8-10.8)
[2024-01-02 07:41] LABS: ALBUMIN 4.3 g/dL (3.2-5.5); ALBUMIN/GLOBULIN RATIO 1.7 (1.0-2.2); ALKALINE PHOSPHATASE 49 IU/L (42-121); ALT ALANINE AMINOTRANSFERASE 14 IU/L (10-60); AST ASPARTATE AMINOTRANSFERASE 16 IU/L (10-42); BILIRUBIN,TOTAL 0.6 mg/dL (0.2-1.0); BUN - BLOOD UREA NITROGEN 12 mg/dL (6-20); CARBON DIOXIDE - CO2 28 mmol/L (21-32); CHLORIDE 105 mmol/L (101-111); CHOL/HDL RATIO 1.8 (<4.4); CHOLESTEROL 183 mg/dL; CREATININE 0.9 mg/dL (0.6-1.3); GFR - MDRD 61 (>89); GLUCOSE 95 mg/dL (74-104); HDL CHOLESTEROL 99 mg/dL; LDL CHOLESTEROL,CALCULATED 69 mg/dL; LDL/HDL RATIO 0.7 (<4.4); SODIUM 138 mmol/L (135-145); TOTAL PROTEIN 6.9 g/dL (6.4-8.9); TRIGLYCERIDES 76 mg/dL; VLDL CHOLESTEROL 15 mg/dL
[2024-01-02 07:53] LABS: THYROID STIMULATING HORMONE 3.86 uIU/mL (0.34-5.60)
== END 2024-01-02 06:55 | disposition home or self-care (01) ==
LOC: LAB 06:54
PROVIDERS: ATTEND Physician Assistant Medical
DX: E03.9 Hypothyroidism, unspecified (principal); J30.9 Allergic rhinitis, unspecified; E78.5 Hyperlipidemia, unspecified
CPT/HCPCS: 36415; 80053; 80061; 83721; 84443; 85025

== ENCOUNTER 2025-02-09 13:04 | Inpatient (IN) ==
[2025-02-09 13:44] LABS: HCT - HEMATOCRIT 37.6 % (37.0-47.0); HGB - HEMOGLOBIN 12.3 g/dL (12.0-16.0); MEAN PLATELET VOLUME 8.6 fL (7.9-10.8); PLT - PLATELET COUNT 588 10^3/uL (130-450); RED CELL DISTRIBUTION WIDTH 11.9 % (12.0-15.0)
[2025-02-09 13:47] LABS: ABNORMAL LYMPHS % (MANUAL) 0 %; BASOPHILS # (MANUAL) 0.0 10^3/uL (0-0.1); EOSINOPHILS # (MANUAL) 0.0 10^3/uL (0-0.7)
--- OUTSIDE RECORDS SUMMARY | 2025-02-09 13:48 | EXTERNAL MEDICAL SUMMARY RPT | Continuity of Care Document ---
Author Organization [facility] Address [address] [place] [id number] Phone Problems date description facility 2025-01-17 11:59 Imaging @ [facility] @ Computerized Tomography (CT Scan) @ [facility] 2025-01-17 11:59 Cellulitis, unspecified [facility] 2025-01-19 07:39 Cellulitis, unspecified [facility] 2025-01-19 07:42 Cellulitis, unspecified [facility] 2025-01-19 08:06 Cellulitis, unspecified [facility] 2025-01-19 08:07 Cellulitis, unspecified [facility] 2025-01-20 00:04 Cellulitis, unspecified [facility] 2025-01-20 13:41 Imaging @ [facility] @ Computerized Tomography (CT Scan) @ [facility] 2025-01-20 13:41 Cellulitis, unspecified [facility] 2025-01-20 13:41 Other specified diso rders of the skin and subcutaneous tissue [facility] 2025-01-20 13:41 Localized swelling, mass and nahomy mp, head [facility] 2025-01-22 07:30 Cellulitis, unspecified [facility] 2025-01-26 09:44 Diarrhea, unspecified [facility] 2025-01-26 09:59 Diarrhea, unspecified [facility] 2025-01-26 11:08 Diarrhea, unspecified [facility] 2025-01-27 00:01 Diarrhea, unspecified [facility] 2025-01-29 08:10 Diarrhea, unspecified [facility] Results/Labs test date facility value unit notes Result panel 1 CUL,WOUND (AEROBIC) 2025-01-19 07:37 [facility] (missing) (missing) (missing) CUL,WOUND (AEROBIC) 2025-01-19 07:37 [facility] (missing) (missing) CULTURE SOURCE: external nose CUL,WOUND (AEROBIC) 2025-01-19 07:37 [facility] CULTURE IN PROGRESS. RESULTS TO FOLLOW. (missing) (missing) CUL,WOUND (AEROBIC) 2025-01-19 07:37 [facility] GRAM STAIN: (missing) (missing) CUL,WOUND (AEROBIC) [facility] [facility] ([facility]) (missing) CUL,WOUND (AEROBIC) 2025-01-19 07:37 [facility] NO ORGANISMS SEEN (missing) (missing) CUL,WOUND (AEROBIC) 2025-01-19 07:37 [facility] NO WHITE BLOOD CELLS SEEN (missing) (missing) Result panel 2 C DIFF PCR 2025-01-26 10[facility] NEGATIVE (missing) (missing) FECAL LEUKOCYTES (EZ KOLBY) [facility]25-01-26 [facility] POSITIVE (missing) INTERPRETIVE COMMENT S: The LEUKO EZ KOLBY test is an immunochromatographic test for the qualitative detection of elevated levels of lactoferrin released from fecal leukocytes as a marker of intestinal inflammation. The test may not be appropriate in immunocompromised persons. Fecal samples from breast fed infants should not be used with this assay. A Positive result is indicative of the presence of elevated levels of lactoferrin. A Negative result does not exclude the presence of intestinal inflammation. Social History date description facility
[2025-02-09 13:54] LABS: ALT ALANINE AMINOTRANSFERASE 91 IU/L (10-60); AST ASPARTATE AMINOTRANSFERASE 49 IU/L (10-42); BUN - BLOOD UREA NITROGEN 17 mg/dL (6-20); CARBON DIOXIDE - CO2 28 mmol/L (21-32); CREATININE 0.6 mg/dL (0.6-1.3); GFR - MDRD 97 (>89)
[2025-02-09] MEDS: SODIUM CHLORIDE 0.9% 1,000 ML IV STA (14:07)
--- NOTE | 2025-02-09 14:21 | ED Physician Documentation ---
PD HPI NVD Stated complaint Stated Complaint: WEAKNESS/LOSS OF APPETITE Chief complaint Chief Complaint: Abd Pain History obtained from History obtained from: Patient and Family History of Present Illness Timing - onset: How many weeks ago (onset diarrhea just after taking abx for facial infection. facial rash gone, abx stopped, and I'm home now as well. diarrhea, poor PO intake and now 2-3 days of vomiting, with noted 15 lb weight loss in the past week in particular. ) Timing - duration: Weeks Timing - details: Abrupt onset, Still present, Constant and Still present in ED Associated symptoms: Fever (up to 100 at home the past 2-3 days. ), Abdominal pain, Loss of appetite and Weight loss Contributing factors: Recent antibiotics; No Sick contact Worsened by: Eating and Palpation Similar symptoms before: Work up / diagnostics and Has not had sx before Recently seen: Clinic (walk in 2 weeks ago and had c diff test ordered that was negative. COntinued symptoms and seen PCP several days ago with CT done outpt showing diffuse colitis. No noted perforation. ) Meds/Allgy Home Medications Ambulatory Orders Medication Instructions Recorded Confirmed cholecalciferol (vitamin D3) 50 2,000 unit PO DAILY 02/10/25 mcg (2,000 unit) capsule (Vitamin D3) levothyroxine 75 mcg tablet 75 mcg PO DAILY 04/14/13 0 02/10/25 (Synthroid) calcium carbonate 600 mg PO BID 07/08/2402/10 budesonide 9 mg tablet,delayed and 9 mg PO QAM #30 ea 02/05/25 02/10/25 extended release ondansetron 8 mg disintegrating 8 mg PO TID PRN nausea and 02/09/25 02/10/25 tablet vomiting #30 tabs mesalamine 250 mg capsule,extended 1,000 mg PO QID 02/10/25 release (Pentasa) multivitamin with minerals-folic 1 tab PO DAILY 02/10/25 acid 80 mcg chewable tablet (Centrum MultiGummies Women) simvastatin 20 mg tablet 20 mg PO QPM 02/10/25 Allergies Allergies Allergy/AdvReac Type Severity Reaction Status Date / Time erythromycin base Allergy Severe skin Verified 02/09/25 13:22 reaction nickel Allergy Severe Unknown Verified 02/09/25 13:22 Penicillins Allergy Severe Hives Verified 02/09/25 13:22 Sulfa (Sulfonamide Allergy Severe Hives Verified 02/09/25 13:22 Antibiotics) PFSH Active Problems All Active Problems (Updated 02/09/25 @ 16:55 by ) Colitis (Acute) Bandemia (Acute) Recent weight loss (Acute) Acute infectious diarrhea (Acute) Nausea and vomiting (Acute) Hx of Crohn's disease (Acute) Pancolitis (Acute) Right lower quadrant abdominal pain (Acute) Acute diarrhea (Acute) Shingles (Acute) Cellulitis (Acute) Costochondritis (Acute) Arthritis of right foot (Acute) Right knee pain (Acute) Herpes labialis (Acute) Vitamin D deficiency (Acute) Osteopenia (Acute) Allergic rhinitis (Acute) Crohn disease (Acute) Hemorrhoids (Acute) Hyperlipidemia (Acute) Hypothyroidism (Acute) Chronic renal insufficiency (Acute) Fear of flying (Acute) Knee pain, left (Acute) Social History Social History Smoking Status: Smoker current status unk Second hand tobacco smoke exposure: No Do you dip or chew tobacco?: No Do you vape?: No Living arrangement: At home Marital Status: Living Condition: With spouse/s.o. Level: Independent Do you feel safe in your home environment?: Yes History of physical, verbal, emotional, or financial abuse?: No Frequency: Occasional Substance Use: denies use POLST Patient has POLST: No Exam Exam Vital Signs: Vital Signs x48h Temp Pulse Resp BP Pulse Ox 02/09/25 15:00 78 20 108/71 93 02/09/25 14:30 77 18 116/72 97 02/09/25 14:22 81 16 120/75 99 02/09/25 13:19 36.8 C 92 18 97/74 95 Constitutional normal general appearance, distress noted (moderate) and average body habitus HENMT oral mucous membranes normal, oropharynx normal, dentition normal and gingiva normal Eyes PERRL and no scleral icterus Neck/C-Spine visual inspection normal and cervical full ROM noted Lymph no lymphadenopathy noted Chest palpation of chest normal Respiratory breath sounds equal bilaterally and normal respiratory effort Cardiovascular normal heart rate noted and regular rhythm noted Gastrointestinal abdomen normal to inspection, abdomen firm to palpation (nonrigid), tender to palpation (mild) and nondistended Genitourinary no CVA tenderness Results Vitals Vitals: Vital Signs - 24 hr 02/10/25 00:36 02/10/25 00:40 02/10/25 01:38 Temperature Temperature Source Pulse Rate [Brachial] Respiratory Rate Blood Pressure [Right Brachial artery] O2 Saturation O2 Source Sedation scale Pain Intensity 4 2 Pain Intensity [Generalized Abdomen] 4 02/10/25 04:20 02/10/25 04:22 02/10/25 07:34 Temperature 36.7 C 36.7 C Temperature Source Temporal Artery Scan Temporal Artery Scan Pulse Rate [Brachial] 75 85 Respiratory Rate 18 18 Blood Pressure [Right Brachial artery] 134/71 H 122/73 O2 Saturation 95 94 O2 Source Room air Room air Sedation scale 0-Fully awake 0-Fully awake Pain Intensity 8 6 Pain Intensity [Generalized Abdomen] 8 Oxygen O2 Source Room air Labs Labs: Laboratory Tests 02/09/25 02/09/25 02/10/25 13:31 23:41 04:45 WBC 13.2 H 14.5 H RBC 3.99 L 3.54 L Hgb 12.3 11.1 L Hct 37.6 34.2 L MCV 94.2 96.6 MCH 30.8 31.4 H MCHC 32.7 32.5 RDW 11.9 L 12.0 Plt Count 588 H 465 H MPV 8.6 8.5 Neut # (Auto) Not Reportable Not Reportable Lymph # (Auto) Not Reportable Not Reportable [place] # (Auto) Not Reportable Not Reportable Eos # (Auto) Not Reportable Not Reportable Baso # (Auto) Not Reportable Not Reportable Absolute Nucleated RBC Not Reportable Not Reportable Total Counted 100 100 Band Neuts % (Manual) 40 H 35 H Abnorm Lymph % (Manual) 0 0 Metamyelocytes % 5 H Nucleated RBC % Not Reportable Not Reportable Neutrophils # (Manual) 10.0 H 12.8 H Lymphocytes # (Manual) 1.5 0.9 L Monocytes # (Manual) 1.7 H 0.1 Eosinophils # (Manual) 0.0 0.0 Basophils # (Manual) 0.0 0.0 Differential Comment MANUAL DIFFERENTIAL MANUAL DIFFERENTIAL Manual Slide Review Indicated WBC Morphology 2+ TOXIC GRANULATION 2+ TOXIC GRANULATION Platelet Estimate INCREASED (>450,000) INCREASED (>450,000) Platelet Morphology NORMAL APPEARANCE RBC Morph Micro Appear NORMAL APPEARANCE Sodium 130 L 134 L Potassium 3.3 L 3.3 L Chloride 91 L 99 L Carbon Dioxide 28 24 Anion Gap 11.0 11.0 BUN 17 20 Creatinine 0.6 0.6 Estimated GFR (MDRD) 97 97 Glucose 96 94 Calcium 9.3 8.5 Magnesium 2.3 Total Bilirubin 0.5 0.4 Direct Bilirubin < 0.10 AST 49 H 33 ALT 91 H 66 H Alkaline Phosphatase 383 H 357 H C-Reactive Protein 25.0 H Total Protein 6.7 5.5 L Albumin 3.1 L 2.6 L Globulin 3.6 2.9 Albumin/Globulin Ratio 0.9 L Lipase < 10 L Procalcitonin Immunoas 29.11 H* Stl C. diff Tox B Gene NEGATIVE Blood Type Blood Type Recheck A POSITIVE Antibody Screen 02/10/25 05:16 WBC RBC Hgb Hct MCV MCH MCHC RDW Plt Count MPV Neut # (Auto) Lymph # (Auto) [place] # (Auto) Eos # (Auto) Baso # (Auto) Absolute Nucleated RBC Total Counted Band Neuts % (Manual) Abnorm Lymph % (Manual) Metamyelocytes % Nucleated RBC % Neutrophils # (Manual) Lymphocytes # (Manual) Monocytes # (Manual) Eosinophils # (Manual) Basophils # (Manual) Differential Comment Manual Slide Review WBC Morphology Platelet Estimate Platelet Morphology RBC Morph Micro Appear Sodium Potassium Chloride Carbon Dioxide Anion Gap BUN Creatinine Estimated GFR (MDRD) Glucose Calcium Magnesium Total Bilirubin Direct Bilirubin AST ALT Alkaline Phosphatase C-Reactive Protein Total Protein Albumin Globulin Albumin/Globulin Ratio Lipase Procalcitonin Immunoas Stl C. diff Tox B Gene Blood Type A POSITIVE Blood Type Recheck Antibody Screen NEGATIVE PD Medical Decision Making ED course Complexity details: reviewed results, considered differential and d/w patient Reviewed Lab Results: patient has moderate elevate WBC but it is 40% bands, and also elevated procalcitonin. Suggesting significant bacterial cause of her diarrhea. Had CDiff test on , almost 2 weeks ago, so can state not as likely cdiff but can repeat it. Also hadd stool PCR to eval for the likely of shigella, etc. However, with her history of crohns, it could be just inflammatory or more traditional pathogens (e coli, klebsiella). has been on budesonie PO for few days, got Rx for ZOfran today, but has been having N/V consistently over past 1-2 days, and poor PO intake the past 2-3 weeks with the ongoing diarrhea. had CT scan of abd just 2 days ago showing diffuse colitis. Pt without peritoneal signs generally, just local. I did not feel repeat CT would be needed as not seeming like obstruction, perforation, etc. However, concern for increasing infection and not responsive to outpt meds of steroids/usual meds. She appears ill with nausea still. Hospitalist contacted. ED course: The patient presents with several weeks of watery and consistent diarrhea 6-10 times per day without any formed stool. His has been odorous according to the . It initiated after being on first doxycycline for facial cellulitis which worsened after 2 days and was changed to clindamycin and mupirocin. It did seem to improve and resolve over several days. However at that point she started with onset of the diarrhea and crampy abdominal pain that has persisted. She was seen by her primary care in the office and had outpatient CT scan done on February 03 that showed lower pancolitis without any abscess or perforation. She was prescribed budesonide for presumed Crohn's flareup. She had been on mesalamine/Pentasa ongoing for her Crohn's. Her states they did stop this when started the budesonide. She is also prescribed ondansetron which they just picked up at the pharmacy. They have been taking probiotics. and started on budesonide several days ago. Pt/spouse report 15 lb weight loss in the past 2-3 weeks. They were seen in the walk-in clinic on the first and had an outpatient C. difficile study done that was negative.The patient and states she has lost 15 pounds over the 3 weeks. She has not been able to eat or drink in the last several days because of nausea with vomiting and the initiation of abdominal cramps when she does eat. She is feeling well and generally weak. Her states they have had low-grade fever up to 100 and predominantly at the 99 level. She has been feeling weak and lightheaded with standing but no syncope. They have not noticed any blood or melena in the stool. Discharge Plan Discharge Patient Disposition: ED Place in Observation Condition: Stable Clinical Impression: Pancolitis, Hx of Crohn's disease, Nausea and vomiting, Acute infectious diarrhea, Recent weight loss, Bandemia Interventions: ED Admission Assessment Last Done: 02/09/25 17:18 Vitals documented within 30 minutes of discharge?: Yes
[2025-02-09 14:25] LABS: BAND NEUTROPHILS % (MANUAL) 40 %; LYMPHOCYTES # (MANUAL) 1.5 10^3/uL (1.5-3.5); LYMPHOCYTES % (MANUAL) 11 %; MONOCYTES # (MANUAL) 1.7 10^3/uL (0.0-1.0); NEUTROPHILS # (MANUAL) 10.0 10^3/uL (1.5-6.6); PLATELET ESTIMATE, MANUAL INCREASED (>450,000) (NORMAL)
[2025-02-09 14:26] LABS: WBC MORPHOLOGY (MULTIPLE) 2+ TOXIC GRANULATION (NORMAL)
[2025-02-09] MEDS: DEXAMETHASONE 10 MG/ML VIAL IVP STA (15:08)
[2025-02-09] MEDS: ONDANSETRON 4 MG/2 ML VIAL IVP STA (15:08)
[2025-02-09] MEDS: LACTATED RINGERS 1,000 ML IV STA (15:09)
[2025-02-09] MEDS: KETOROLAC 15 MG/ML VIAL IVP STA (15:09)
--- NOTE | 2025-02-09 16:49 | HISTORY & PHYSICAL EXAMINATION ---
Chief Complaint Chief Complaint Chief Complaint: N/V/D History of Present Illness Admitted From Admitted From:: Home with History Obtained From History obtained from: Patient interview History of Present Illness HPI Comment/Other: 74-year-old female with PMH chron's disease who presents with diarrhea for the past several weeks. She reports this started when she started taking antibiotics for facial cellulitis. She finished a course of clindamycin. She initially presented to the walk-in clinic and then to her PCP. This was initially thought to be drug-induced diarrhea, then it was managed as a Crohn's flare with steroids. She has continued to have violent diarrhea, and started develop nausea. She has been having progressive nausea, to the point where yesterday she can only tolerate water and today she cannot take any oral intake. reports that she has lost 15 pounds over the past 2-3 weeks. She reports some abdominal pain in varying points in her abdomen feeling like her stomach is twisting and in knots. She denies fever, chills, hematemesis, melena, blood in stool. She had a CT abdomen/pelvis performed in the outpatient setting on 02/03 which showed diffuse bowel wall thickening throughout the colon suspicious for pancolitis. In the ER, lab work revealed some elevation in her LFTs with AST of 49, ALT 91, alkaline phosphatase 383. Procalcitonin positive, lipase negative. Patient is clearly unable to keep up oral intake and is very dehydrated. She was given some IV fluids in the ER as well as antiemetics. She is still too nauseous to take anything orally. Hospitalist was contacted for observation Meds/Allgy Home Medications Ambulatory Orders Medication Instructions Recorded Confirmed cholecalciferol (vitamin D3) 50 2,000 unit PO DAILY 02/09/25 mcg (2,000 unit) capsule (Vitamin D3) levothyroxine 75 mcg tablet 75 mcg PO DAILY 04/14/13 0 02/09/25 (Synthroid) calcium carbonate 600 mg PO QDAY 07/08/2401/26 triamcinolone acetonide 0.1 % 1 applic topical QDAY 02/09/25 topical cream simvastatin 20 mg tablet See Rx Instructions .Route 0 01/14/25 02/09/25 .COMPLEX #90 tabs mesalamine 250 mg capsule,extended 250 mg PO QID #1,44 0 caps 01/15/25 02/09/25 release (Pentasa) budesonide 9 mg tablet,delayed and 9 mg PO QAM #30 ea 02/05/25 02/09/25 extended release ondansetron 8 mg disintegrating 8 mg PO TID PRN nausea and 02/09/25 02/09/25 tablet vomiting #30 tabs Allergies Allergies Allergy/AdvReac Type Severity Reaction Status Date / Time erythromycin base Allergy Severe skin Verified 02/09/25 13:22 reaction nickel Allergy Severe Unknown Verified 02/09/25 13:22 Penicillins Allergy Severe Hives Verified 02/09/25 13:22 Sulfa (Sulfonamide Allergy Severe Hives Verified 02/09/25 13:22 Antibiotics) PFSH Active Problems All Active Problems (Updated 02/09/25 @ 16:55 by ) Colitis (Acute) Bandemia (Acute) Recent weight loss (Acute) Acute infectious diarrhea (Acute) Nausea and vomiting (Acute) Hx of Crohn's disease (Acute) Pancolitis (Acute) Right lower quadrant abdominal pain (Acute) Acute diarrhea (Acute) Shingles (Acute) Cellulitis (Acute) Costochondritis (Acute) Arthritis of right foot (Acute) Right knee pain (Acute) Herpes labialis (Acute) Vitamin D deficiency (Acute) Osteopenia (Acute) Allergic rhinitis (Acute) Crohn disease (Acute) Hemorrhoids (Acute) Hyperlipidemia (Acute) Hypothyroidism (Acute) Chronic renal insufficiency (Acute) Fear of flying (Acute) Knee pain, left (Acute) Social History Social History Smoking Status: Smoker current status unk Second hand tobacco smoke exposure: No Do you dip or chew tobacco?: No Do you vape?: No Living arrangement: At home Marital Status: Living Condition: With spouse/s.o. Level: Independent Do you feel safe in your home environment?: Yes History of physical, verbal, emotional, or financial abuse?: No Frequency: Occasional Substance Use: denies use POLST Patient has POLST: No Review of Systems Status of ROS: 10 or more systems reviewed and unremarkable except as noted in history and below Constitutional Denies: Fever or Chills Cardiovascular Denies: Irregular heart rate, chest pain, palpitations or shortness of breath with exertion Respiratory Denies: Shortness of breath or Cough Gastrointestinal Reports: Abdominal pain, Nausea, Vomiting, Diarrhea and Change in bowel habits; Denies: Coffee grounds in vomit, Rectal bleeding, Rectal pain, Melena or Blood in stool Exam Exam Vital Signs: Vital Signs x48h Temp Pulse Resp BP Pulse Ox 02/09/25 17:00 79 18 107/63 94 02/09/25 16:00 73 18 104/66 94 02/09/25 15:00 78 20 108/71 93 02/09/25 14:30 77 18 116/72 97 02/09/25 14:22 81 16 120/75 99 02/09/25 13:19 36.8 C 92 18 97/74 95 Constitutional normal general appearance and no apparent distress HENMT oral mucous membranes abnormal (dry) Eyes EOMs intact bilaterally Neck/C-Spine visual inspection normal Lymph no lymphadenopathy noted Chest inspection of chest normal Respiratory breath sounds equal bilaterally and normal respiratory effort Cardiovascular normal heart rate noted and regular rhythm noted Gastrointestinal abdomen soft to palpation Extremities normal to inspection Neurology GCS 15 Psychiatry oriented x3 Skin skin color normal and no rash Conclusion/Plan Problem List (1) Colitis: Plan: Her diarrhea started about the same time as her course of Clindamycin Denies infectious symptoms such as fevers or chills This was initially diagnosed as a Crohn's flare, but her steroids have been ineffective thus far Outpatient C. difficile toxin screen was negative, I am ordering a C. difficile PCR as well as a GI profile PCR She has received 2 L fluid bolus in the ER, I am continuing NS at 125 I am going ahead and starting her on IV Flagyl as I highly suspect this is C. difficile colitis Will start oral vancomycin when her nausea improves I believe this colitis is what is causing her elevation in LFTs, Recheck CMP in a.m. Plan Place in observation Full code Her is her surrogate decision maker Lab Results Lab results reviewed: Yes 02/09/25 13:31 02/09/25 13:31 Core Measures Anticipated LOS I expect patient to be DC'd or transferred within 96 hours.: Yes DVT/VTE - Prophylaxis VTE/DVT Prophylaxis med ordered at admit?: Yes
[2025-02-09] MEDS: SODIUM CHLORIDE 0.9% 1,000 ML IV SCH (18:00)
[2025-02-09] MEDS: SODIUM CHLORIDE FLUSH 0.9% 10 ML SYRINGE IVP SCH (18:00)
[2025-02-09] MEDS ORDERED: COD LIVER OIL/ZINC OXIDE 113 GM TUBE TOP PRN (18:53)
[2025-02-09] MEDS: ACETAMINOPHEN 1,000 MG/100 ML 1,000 MG/100 ML BAG IV PRN (19:13)
[2025-02-09] MEDS: KETOROLAC 15 MG/ML VIAL IVP PRN (21:52)
[2025-02-10] MEDS: ACETAMINOPHEN 325 MG TABLET PO PRN (00:40)
--- NOTE | 2025-02-10 04:48 | PROVIDER PROGRESS NOTE ---
Customer Service Representative Teller Note Customer Service Representative Teller Note Customer Service Representative Teller Note: notified by nurse of the following: Pt admitted for Colitis with more than 4x diarrhea episodes a day and nausea for the past several weeks. Pt has a history of Chron's disease. C-Diff was tested for but came back negative. She has had two liquid bowel movements this shift without blood but just recently at 0410 had a bowel movement with a moderate amount of bright red blood. Patient had a brief on, so we were unable to measure the amount. Vital signs remain stable at this time, but the patient's abdominal pain has increased to an 8/10. The patient only has Toradol order for severe pain. With this new occurrence of bleeding is it still okay to give the Toradol or would you like to order something different for pain? Please input all new orders. Discussed with nurse. vitals stable bp 134/71, HR 75. Has a history of hemorrhoids. has only received a dose of toradol. abdominal pain is located in the bilateral lower quadrants, cramping. this is similar to her original presentation orders placed, will continue to monitor.
[2025-02-10 04:53] LABS: HCT - HEMATOCRIT 34.2 % (37.0-47.0); HGB - HEMOGLOBIN 11.1 g/dL (12.0-16.0); MEAN PLATELET VOLUME 8.5 fL (7.9-10.8); PLT - PLATELET COUNT 465 10^3/uL (130-450); RED CELL DISTRIBUTION WIDTH 12.0 % (12.0-15.0)
[2025-02-10 04:57] LABS: SLIDE REVIEW? Indicated
[2025-02-10 04:58] LABS: ABNORMAL LYMPHS % (MANUAL) 0 %; BASOPHILS # (MANUAL) 0.0 10^3/uL (0-0.1); EOSINOPHILS # (MANUAL) 0.0 10^3/uL (0-0.7)
[2025-02-10] MEDS: FAMOTIDINE 20 MG/2 ML VIAL IVP SCH ×2 (05:08→20:13)
[2025-02-10] MEDS: ACETAMINOPHEN 1,000 MG/100 ML 1,000 MG/100 ML BAG IV ONE (05:13)
[2025-02-10 05:16] LABS: BUN - BLOOD UREA NITROGEN 20.0 mg/dL (6-20); CARBON DIOXIDE - CO2 24.0 mmol/L (21-32); CREATININE 0.6 mg/dL (0.6-1.3); GFR - MDRD 97.0 (>89)
[2025-02-10 06:17] LABS: BAND NEUTROPHILS % (MANUAL) 35 %; LYMPHOCYTES # (MANUAL) 0.9 10^3/uL (1.5-3.5); LYMPHOCYTES % (MANUAL) 6 %; METAMYELOCYTES % (MANUAL) 5 %; MONOCYTES # (MANUAL) 0.1 10^3/uL (0.0-1.0); NEUTROPHILS # (MANUAL) 12.8 10^3/uL (1.5-6.6)
[2025-02-10 06:20] LABS: PLATELET ESTIMATE, MANUAL INCREASED (>450,000) (NORMAL); PLATELET MORPHOLOGY NORMAL APPEARANCE (NORMAL); RBC MORPHOLOGY (MULTIPLE) NORMAL APPEARANCE (NORMAL); WBC MORPHOLOGY (MULTIPLE) 2+ TOXIC GRANULATION (NORMAL)
[2025-02-10] MEDS: ENOXAPARIN 40 MG/0.4 ML SYRINGE SUBQ SCH (08:39)
--- NOTE | 2025-02-10 09:31 | PHARMACY PROGRESS NOTE ---
Best Possible Medication History Admit Date and Time: 02/09/25 [id number] Home Medications Medication Instructions Recorded Confirmed Type cholecalciferol (vitamin D3) 50 2,000 unit PO DAILY 02/10/25 History mcg (2,000 unit) capsule (Vitamin D3) levothyroxine 75 mcg tablet 75 mcg PO DAILY 04/14/13 0 02/10/25 History (Synthroid) calcium carbonate 600 mg PO BID 07/08/2402/10 History budesonide 9 mg tablet,delayed and 9 mg PO QAM #30 ea 02/05/25 02/10/25 Rx extended release ondansetron 8 mg disintegrating 8 mg PO TID PRN nausea and 02/09/25 02/10/25 Rx tablet vomiting #30 tabs mesalamine 250 mg capsule,extended 1,000 mg PO QID 02/10/25 History release (Pentasa) multivitamin with minerals-folic 1 tab PO DAILY 02/10/25 History acid 80 mcg chewable tablet (Centrum MultiGummies Women) simvastatin 20 mg tablet 20 mg PO QPM 02/10/25 History Processed by: Pharmacy Medications reviewed in ED?: Yes Medication History completed: Yes Patient Interview: Completed Secondary Source(s): Insurance records [facility] Statement: As the person ultimately responsible for medication therapy, providers are able to order a medication from an existing home medication list in [facility] via the "Reconcile Routine" prior to Confirmation of that medication by technical support specialist. Such practice is discouraged except when the physician, in their clinical judgment, deems that a medical need exists for a medication without regard to previous use.
[2025-02-10 10:27] LABS: ALT ALANINE AMINOTRANSFERASE 66 IU/L (10-60); AST ASPARTATE AMINOTRANSFERASE 33 IU/L (10-42)
[2025-02-10] MEDS: CIPROFLOXACIN 400 MG/200 ML 400 MG/200 ML BAG IV SCH (11:40)
--- NOTE | 2025-02-10 12:17 | CT Report ---
PROCEDURE: CT Angio Abdomen/Pelvis INDICATIONS: n/v/d, rectal bleeding CONTRAST: OMNI 300 100ML TECHNIQUE: After the administration of intravenous contrast, images were acquired from the diaphragm to the symphysis. Maximum-intensity projection (MIP) reformats were then acquired. For radiation dose reduction, the following was used: automated exposure control, adjustment of mA and/or kV according to patient size. COMPARISON: 02/03/2025 FINDINGS: Image quality: Excellent. VESSELS: Aorta: Patent without significant stenosis Mesenteric arteries: Celiac trunk, superior and inferior mesenteric arteries appear patent. Right pelvic arteries: Patent without significant stenosis. Left pelvic arteries: Patent without significant stenosis. CHEST: Lung bases and heart: Unremarkable. ABDOMEN: Liver: No solid mass. Gallbladder and biliary tree: No radiopaque stones or wall thickening. No biliary dilation. Spleen: No splenomegaly. Pancreas: No pancreatic ductal dilation. Adrenals: No adrenal nodule. Kidneys and ureters: No hydronephrosis. No renal cystic lesion which requires follow up. No solid mass. Bowel and peritoneum: Diffuse large bowel wall thickening. Wall thickening measures up to 9 mm. No pericolonic fat stranding. No active GI bleeding. Diverticulosis without evidence of diverticulitis. Lymph nodes: No central or retroperitoneal adenopathy. PELVIS Reproductive organs: Unremarkable. Bladder: No abnormal wall thickening, accounting for underdistension. Pelvic lymph nodes: No pelvic adenopathy by size criteria. Bones: Degenerative changes, predominantly of the lumbar spine. Moderate spinal canal narrowing at L4-5. Other: No significant ventral or inguinal hernia. IMPRESSION: No evidence of active GI bleeding. Diffuse large bowel wall thickening, without pericolonic fat stranding. Findings are suspicious for colitis, specifically C. difficile. Findings are similar to prior. Reviewed by: Alec Bean MD on 02/10/2025 12:14 PM PDT Approved by: Alec Bean MD on 02/10/2025 12:14 PM PDT Station ID: [id number]
--- NOTE | 2025-02-10 12:23 | PROVIDER PROGRESS NOTE ---
Subjective Prog Note Date Prog Note Date: 02/10/25 Subjective Pt reports feeling: No change Subjective: Episode of blood in stool as described by overnight doctor Current Medications Current Medications Current Medications: Current Medications Generic Name Dose Route Start Last Admin Trade Name Freq PRN Reason Stop Dose Admin Acetaminophen 650 mg 02/09/25 17:22 02/10/25 00:40 Acetaminophen 325 Mg Tablet PO 650 mg Q4HR PRN Administration Pain 1 to 4, or Fever Atorvastatin Calcium 10 mg 02/10/25 21:00 Atorvastatin 10 Mg Tablet PO QPM RAMON Enoxaparin Sodium 40 mg 02/10/25 09:00 02/10/25 08:39 Enoxaparin 40 Mg/0.4 Ml Syringe SUBQ 40 mg DAILY RAMON Administration Famotidine 20 mg 02/10/25 05:00 02/10/25 05:08 Famotidine 20 Mg/2 Ml Vial IVP 02/11/25 04:59 20 mg ONCE RAMON Administration Sodium Chloride 1,000 mls @ 125 mls/hr 02/09/25 17:22 02/10/25 10:34 Normal Saline 0.9% IV 0 mls/hr .Q8H RAMON Infusion Metronidazole 500 mg in 100 mls @ 100 mls/hr 02/09/25 17:22 02/10/25 09:42 Flagyl 500 Mg/100 Ml IV Infused Q8H RAMON Infusion Acetaminophen 1,000 mg in 100 mls @ 400 mls/hr 02/09/25 18:15 02/09/25 19:48 Acetaminophen IV Infused Q6HR PRN Infusion Moderate Pain (Level 4-6) Potassium Chloride 10 meq in 100 mls @ 100 mls/hr 02/10/25 11:00 Potassium Chloride IV 02/10/25 16:59 Q1H RAMON Ciprofloxacin 400 mg in 200 mls @ 200 mls/hr 02/10/25 12:00 02/10/25 11:40 Cipro 400 Mg/200 Ml IV 200 mls/hr Q12H RAMON Administration Ketorolac Tromethamine 15 mg 02/09/25 18:15 02/09/25 21:52 Ketorolac 15 Mg/Ml Vial IVP 02/14/25 18:14 15 mg Q6HR PRN Administration Severe Pain (Level 7-10) Levothyroxine Sodium 75 mcg 02/11/25 09:00 Levothyroxine 75 Mcg Tablet PO DAILY RAMON Ondansetron HCl 4 mg 02/09/25 17:22 Ondansetron Odt 4 Mg Tablet TL Q6HR PRN Nausea / Vomiting Ondansetron HCl 4 mg 02/09/25 17:22 Ondansetron 4 Mg/2 Ml Vial IVP Q6HR PRN Nausea / Vomiting Patient Own Med ( 4 each 02/10/25 13:00 Mesalamine [Pentasa] PO 250 Mg Capsule) QID [facility] Prochlorperazine Edisylate 10 mg 02/09/25 17:22 Prochlorperazine 10 Mg/2 Ml Vial IVP Q6HR PRN Nausea / Vomiting Sodium Chloride 10 ml 02/09/25 17:22 Sodium Chloride Flush 0.9% 10 Ml Syringe IVP PRN PRN NEEDED PER PROVIDER ORDERS Sodium Chloride 10 ml 02/09/25 17:22 02/10/25 08:39 Sodium Chloride Flush 0.9% 10 Ml Syringe IVP Not Given 0100,0900,1700 RAMON Zinc Oxide 113 gm 02/09/25 18:53 Cod Liver Oil/Zinc Oxide 113 Gm Tube TOP PRN PRN Skin Care Objective Vital Signs/Intake & Output Reviewed Vital Signs: Yes Vital Signs: Vital Signs x48h Temp Pulse Resp BP Pulse Ox 02/10/25 07:34 36.7 C 85 18 122/73 94 02/10/25 04:20 36.7 C 75 18 134/71 H 95 Intake & Output: Intake & Output 02/07/25 02/08/25 02/09/25 02/10/25 23:59 23:59 23:59 23:59 Intake Total 2300 / 2300 2049 Balance 2300 / 2300 2049 Weight (kg) 51 kg Objective General Appearance: positive No acute distress and Alert Eyes Bilateral: positive Normal inspection ENT: positive ENT inspection nml Neck: positive Nml inspection Respiratory: positive Chest non-tender Cardiovascular: positive Regular rate & rhythm Abdomen: positive Nml bowel sounds and Tenderness Skin: positive Color nml Extremities: positive Non-tender Neurologic/Psychiatric: positive Oriented x3 Lab Results 02/10/25 04:45 02/10/25 04:45 Other Labs: Lab Results x24hrs 09/16/25 09/16/25 09/15/25 Range/Units 05:16 04:45 23:41 WBC 14.5 H (4.8-10.8) x10^3/uL RBC 3.54 L (4.20-5.40) 10^6/uL Hgb 11.1 L (12.0-16.0) g/dL Hct 34.2 L (37.0-47.0) % MCV 96.6 (81.0-99.0) fL MCH 31.4 H (27.0-31.0) pg MCHC 32.5 (32.0-36.0) g/dL RDW 12.0 (12.0-15.0) % Plt Count 465 H (130-450) 10^3/uL MPV 8.5 (7.9-10.8) fL Neut # (Auto) Not Reportable Lymph # (Auto) Not Reportable [place] # (Auto) Not Reportable Eos # (Auto) Not Reportable Baso # (Auto) Not Reportable Absolute Nucleated RBC Not Reportable Total Counted 100 Band Neuts % (Manual) 35 H (0 - 10) % Abnorm Lymph % (Manual) 0 % Metamyelocytes % 5 H ( - 0) % Nucleated RBC % Not Reportable Neutrophils # (Manual) 12.8 H (1.5-6.6) 10^3/uL Lymphocytes # (Manual) 0.9 L (1.5-3.5) 10^3/uL Monocytes # (Manual) 0.1 (0.0-1.0) 10^3/uL Eosinophils # (Manual) 0.0 (0-0.7) 10^3/uL Basophils # (Manual) 0.0 (0-0.1) 10^3/uL Differential Comment MANUAL DIFFERENTIAL Manual Slide Review Indicated WBC Morphology 2+ TOXIC GRANULATION (NORMAL) Platelet Estimate INCREASED (>450,000) (NORMAL) Platelet Morphology NORMAL APPEARANCE (NORMAL) RBC Morph Micro Appear NORMAL APPEARANCE (NORMAL) Sodium 134 L (135-145) mmol/L Potassium 3.3 L (3.5-4.5) mmol/L Chloride 99 L (101-111) mmol/L Carbon Dioxide 24 (21-32) mmol/L Anion Gap 11.0 (6-13) BUN 20 (6-20) mg/dL Creatinine 0.6 (0.6-1.3) mg/dL Estimated GFR (MDRD) 97 (>89) Glucose 94 (74-104) mg/dL Calcium 8.5 (8.5-10.3) mg/dL Magnesium (1.7-2.3) mg/dL Total Bilirubin 0.4 (0.2-1.0) mg/dL Direct Bilirubin < 0.10 (0.03-0.18) mg/dL AST 33 (10-42) IU/L ALT 66 H (10-60) IU/L Alkaline Phosphatase 357 H (42-121) IU/L C-Reactive Protein (<0.5) mg/dL Total Protein 5.5 L (6.4-8.9) g/dL Albumin 2.6 L (3.2-5.5) g/dL Globulin 2.9 (2.1-4.2) g/dL Albumin/Globulin Ratio (1.0-2.2) Lipase (11-82) U/L Procalcitonin Immunoas (<0.5) ng/mL Stl C. diff Tox B Gene NEGATIVE (NEGATIVE) Blood Type A POSITIVE Blood Type Recheck A POSITIVE Antibody Screen NEGATIVE 02/09/25 Range/Units 13:31 WBC 13.2 H (4.8-10.8) x10^3/uL RBC 3.99 L (4.20-5.40) 10^6/uL Hgb 12.3 (12.0-16.0) g/dL Hct 37.6 (37.0-47.0) % MCV 94.2 (81.0-99.0) fL MCH 30.8 (27.0-31.0) pg MCHC 32.7 (32.0-36.0) g/dL RDW 11.9 L (12.0-15.0) % Plt Count 588 H (130-450) 10^3/uL MPV 8.6 (7.9-10.8) fL Neut # (Auto) Not Reportable Lymph # (Auto) Not Reportable [place] # (Auto) Not Reportable Eos # (Auto) Not Reportable Baso # (Auto) Not Reportable Absolute Nucleated RBC Not Reportable Total Counted 100 Band Neuts % (Manual) 40 H (0 - 10) % Abnorm Lymph % (Manual) 0 % Metamyelocytes % ( - 0) % Nucleated RBC % Not Reportable Neutrophils # (Manual) 10.0 H (1.5-6.6) 10^3/uL Lymphocytes # (Manual) 1.5 (1.5-3.5) 10^3/uL Monocytes # (Manual) 1.7 H (0.0-1.0) 10^3/uL Eosinophils # (Manual) 0.0 (0-0.7) 10^3/uL Basophils # (Manual) 0.0 (0-0.1) 10^3/uL Differential Comment MANUAL DIFFERENTIAL Manual Slide Review WBC Morphology 2+ TOXIC GRANULATION (NORMAL) Platelet Estimate INCREASED (>450,000) (NORMAL) Platelet Morphology (NORMAL) RBC Morph Micro Appear (NORMAL) Sodium 130 L (135-145) mmol/L Potassium 3.3 L (3.5-4.5) mmol/L Chloride 91 L (101-111) mmol/L Carbon Dioxide 28 (21-32) mmol/L Anion Gap 11.0 (6-13) BUN 17 (6-20) mg/dL Creatinine 0.6 (0.6-1.3) mg/dL Estimated GFR (MDRD) 97 (>89) Glucose 96 (74-104) mg/dL Calcium 9.3 (8.5-10.3) mg/dL Magnesium 2.3 (1.7-2.3) mg/dL Total Bilirubin 0.5 (0.2-1.0) mg/dL Direct Bilirubin (0.03-0.18) mg/dL AST 49 H (10-42) IU/L ALT 91 H (10-60) IU/L Alkaline Phosphatase 383 H (42-121) IU/L C-Reactive Protein 25.0 H (<0.5) mg/dL Total Protein 6.7 (6.4-8.9) g/dL Albumin 3.1 L (3.2-5.5) g/dL Globulin 3.6 (2.1-4.2) g/dL Albumin/Globulin Ratio 0.9 L (1.0-2.2) Lipase < 10 L (11-82) U/L Procalcitonin Immunoas 29.11 H* (<0.5) ng/mL Stl C. diff Tox B Gene (NEGATIVE) Blood Type Blood Type Recheck Antibody Screen Assessment/Plan Problem List (1) Colitis: Impression: History of Crohn's disease. This was initially treated as a Crohn's flare in the outpatient setting with steroids with no effect Recent antibiotic use immediately prior to symptom onset She was tested and found to be negative for C. difficile x 2 GI profile PCR in progress Reports a 15 pound weight loss because of this I am sending her for another CT abdomen/pelvis given her continued symptoms and now bleeding Her LFTs have improved with IVF I have escalated her antibiotics to ciprofloxacin and Flagyl given her penicillin allergy Spoke with Dr. Clayton, on-call for her GI Dr. He recommended colonoscopy. I am consulting general surgery for this
[2025-02-10] MEDS: POTASSIUM CHLOR 10 MEQ/100 ML 10 MEQ/100 ML BAG IV SCH (13:09)
[2025-02-10] MEDS: MESALAMINE 250 MG PO SCH (14:56)
[2025-02-10] MEDS: MORPHINE 2 MG/ML CARPUJECT IVP PRN (15:00)
[2025-02-10 15:53] LABS: HCT - HEMATOCRIT 33.7 % (37.0-47.0); HGB - HEMOGLOBIN 10.8 g/dL (12.0-16.0)
[2025-02-10] MEDS: LACTOBACILLUS RHAMNOSUS GG CAPSULE PO SCH (16:08)
[2025-02-10] MEDS: ONDANSETRON ODT 4 MG TABLET TL PRN (16:08)
--- NOTE | 2025-02-10 17:11 | CONSULTATION NOTE ---
Referring Provider <Geraldine Thompson - Last Filed: 02/10/25 17:21> Name of Referring Provider:: Mt Taylor Consult Date: 02/10/25 <Jared Cordova MD - Last Filed: 02/10/25 17:59> Name of Referring Provider:: Mt Taylor DNP Chief Complaint <Geraldine Thompson - Last Filed: 02/10/25 17:21> Chief Complaint Chief Complaint: Diarrhea <Jared Cordova MD - Last Filed: 02/10/25 17:59> Chief Complaint Chief Complaint: Diarrhea and abdominal pain History of Present Illness <Geraldine Thompson - Last Filed: 02/10/25 17:21> History Obtained From History obtained from: Patient and (Alfredo) History of Present Illness HPI Comment/Other: Debbie is a 74yoF with a history of hemorrhoids and Crohn's that presented with worsening diarrhea. The patient was treated with Clindamycin 3 weeks ago for facial cellulitis. After the course of antibiotics, she started experiencing abdominal cramping and diarrhea 8-10 times per day. She was seen for this on 02/02 and CTAP demonstrated pancolitis so the diarrhea was thought to be due to a Crohn's flare and she was started on Budesonide. She has since had worsening abdominal cramping, persistent diarrhea, decreased PO intake, nausea and a 10-15 pound weight loss. She presented to [facility] and started on Flagyl for presumed c diff infection given her recent antibiotic use. Since admission, her c diff PCR has been negative x2 and a repeat CT showed pancolitis and no acute GI bleed, consistent with previous imaging. She is now on Flagyl and Ciprofloxacin and steroids have been discontinued. She is continuing to have persistent diarrhea while inpatient and is now having BRBPR. She has been able to tolerate clear liquids with minimal nausea. She last ate solid food this morning. Regaring her history of Crohn's, she was diagnosed 30 years ago and is unsure of the method of which the diagnosis was made. She has been seeing Dr. Branham's office for many years. She has been taking Mesalamine since her diagnosis and never switched to a newer medication because it always worked for her with minimal side effects. Her last flare was many years ago. She has been getting colonoscopies every 2 years for polyps, the most recent record available for us to view is from 2013. She endorses that colonoscopies on her have been difficult in the past, many people have not been able to finish the procedure and she usually requires child size scope. She states that she is currently due for a colonoscopy. Meds/Allgy <Geraldine Thompson - Last Filed: 02/10/25 17:21> Home Medications Ambulatory Orders Medication Instructions Recorded Confirmed cholecalciferol (vitamin D3) 50 2,000 unit PO DAILY 02/10/25 mcg (2,000 unit) capsule (Vitamin D3) levothyroxine 75 mcg tablet 75 mcg PO DAILY 04/14/13 0 02/10/25 (Synthroid) calcium carbonate 600 mg PO BID 07/08/2402/10 budesonide 9 mg tablet,delayed and 9 mg PO QAM #30 ea 02/05/25 02/10/25 extended release ondansetron 8 mg disintegrating 8 mg PO TID PRN nausea and 02/09/25 02/10/25 tablet vomiting #30 tabs mesalamine 250 mg capsule,extended 1,000 mg PO QID 02/10/25 release (Pentasa) multivitamin with minerals-folic 1 tab PO DAILY 02/10/25 acid 80 mcg chewable tablet (Centrum MultiGummies Women) simvastatin 20 mg tablet 20 mg PO QPM 02/10/25 Allergies Allergies Allergy/AdvReac Type Severity Reaction Status Date / Time erythromycin base Allergy Severe skin Verified 02/09/25 13:22 reaction nickel Allergy Severe Unknown Verified 02/09/25 13:22 Penicillins Allergy Severe Hives Verified 02/09/25 13:22 Sulfa (Sulfonamide Allergy Severe Hives Verified 02/09/25 13:22 Antibiotics) PFSH <Geraldine Thompson - Last Filed: 02/10/25 17:21> Active Problems All Active Problems (Updated 02/09/25 @ 16:55 by ) Colitis (Acute) Bandemia (Acute) Recent weight loss (Acute) Acute infectious diarrhea (Acute) Nausea and vomiting (Acute) Hx of Crohn's disease (Acute) Pancolitis (Acute) Right lower quadrant abdominal pain (Acute) Acute diarrhea (Acute) Shingles (Acute) Cellulitis (Acute) Costochondritis (Acute) Arthritis of right foot (Acute) Right knee pain (Acute) Herpes labialis (Acute) Vitamin D deficiency (Acute) Osteopenia (Acute) Allergic rhinitis (Acute) Crohn disease (Acute) Hemorrhoids (Acute) Hyperlipidemia (Acute) Hypothyroidism (Acute) Chronic renal insufficiency (Acute) Fear of flying (Acute) Knee pain, left (Acute) Social History Social History Smoking Status: Smoker current status unk Second hand tobacco smoke exposure: No Do you dip or chew tobacco?: No Do you vape?: No Living arrangement: At home Marital Status: Living Condition: With spouse/s.o. Level: Independent Do you feel safe in your home environment?: Yes History of physical, verbal, emotional, or financial abuse?: No Frequency: Occasional Substance Use: denies use POLST Patient has POLST: No POLST CPR Status: Attempt Resuscitation (CPR) Level of Medical Intervention: Full Treatment <Jared Cordova MD - Last Filed: 02/10/25 17:59> POLST Level of Medical Intervention: Full Treatment Results <Geraldine Thompson - Last Filed: 02/10/25 17:21> Lab Results Lab results reviewed: Yes 02/10/25 15:49 02/10/25 04:45 Other Lab Results: Lab Results x24hrs 02/10/25 02/10/25 02/10/25 Range/Units 15:49 05:16 04:45 WBC 14.5 H (4.8-10.8) x10^3/uL RBC 3.54 L (4.20-5.40) 10^6/uL Hgb 10.8 L 11.1 L (12.0-16.0) g/dL Hct 33.7 L 34.2 L (37.0-47.0) % MCV 96.6 (81.0-99.0) fL MCH 31.4 H (27.0-31.0) pg MCHC 32.5 (32.0-36.0) g/dL RDW 12.0 (12.0-15.0) % Plt Count 465 H (130-450) 10^3/uL MPV 8.5 (7.9-10.8) fL Neut # (Auto) Not Reportable Lymph # (Auto) Not Reportable [place] # (Auto) Not Reportable Eos # (Auto) Not Reportable Baso # (Auto) Not Reportable Absolute Nucleated RBC Not Reportable Total Counted 100 Band Neuts % (Manual) 35 H (0 - 10) % Abnorm Lymph % (Manual) 0 % Metamyelocytes % 5 H ( - 0) % Nucleated RBC % Not Reportable Neutrophils # (Manual) 12.8 H (1.5-6.6) 10^3/uL Lymphocytes # (Manual) 0.9 L (1.5-3.5) 10^3/uL Monocytes # (Manual) 0.1 (0.0-1.0) 10^3/uL Eosinophils # (Manual) 0.0 (0-0.7) 10^3/uL Basophils # (Manual) 0.0 (0-0.1) 10^3/uL Differential Comment MANUAL DIFFERENTIAL Manual Slide Review Indicated WBC Morphology 2+ TOXIC GRANULATION (NORMAL) Platelet Estimate INCREASED (>450,000) (NORMAL) Platelet Morphology NORMAL APPEARANCE (NORMAL) RBC Morph Micro Appear NORMAL APPEARANCE (NORMAL) Sodium 134 L (135-145) mmol/L Potassium 3.3 L (3.5-4.5) mmol/L Chloride 99 L (101-111) mmol/L Carbon Dioxide 24 (21-32) mmol/L Anion Gap 11.0 (6-13) BUN 20 (6-20) mg/dL Creatinine 0.6 (0.6-1.3) mg/dL Estimated GFR (MDRD) 97 (>89) Glucose 94 (74-104) mg/dL Calcium 8.5 (8.5-10.3) mg/dL Total Bilirubin 0.4 (0.2-1.0) mg/dL Direct Bilirubin < 0.10 (0.03-0.18) mg/dL AST 33 (10-42) IU/L ALT 66 H (10-60) IU/L Alkaline Phosphatase 357 H (42-121) IU/L Total Protein 5.5 L (6.4-8.9) g/dL Albumin 2.6 L (3.2-5.5) g/dL Globulin 2.9 (2.1-4.2) g/dL Stl C. diff Tox B Gene (NEGATIVE) Blood Type A POSITIVE Blood Type Recheck A POSITIVE Antibody Screen NEGATIVE 02/09/25 Range/Units 23:41 WBC (4.8-10.8) x10^3/uL RBC (4.20-5.40) 10^6/uL Hgb (12.0-16.0) g/dL Hct (37.0-47.0) % MCV (81.0-99.0) fL MCH (27.0-31.0) pg MCHC (32.0-36.0) g/dL RDW (12.0-15.0) % Plt Count (130-450) 10^3/uL MPV (7.9-10.8) fL Neut # (Auto) Lymph # (Auto) [place] # (Auto) Eos # (Auto) Baso # (Auto) Absolute Nucleated RBC Total Counted Band Neuts % (Manual) (0 - 10) % Abnorm Lymph % (Manual) % Metamyelocytes % ( - 0) % Nucleated RBC % Neutrophils # (Manual) (1.5-6.6) 10^3/uL Lymphocytes # (Manual) (1.5-3.5) 10^3/uL Monocytes # (Manual) (0.0-1.0) 10^3/uL Eosinophils # (Manual) (0-0.7) 10^3/uL Basophils # (Manual) (0-0.1) 10^3/uL Differential Comment Manual Slide Review WBC Morphology (NORMAL) Platelet Estimate (NORMAL) Platelet Morphology (NORMAL) RBC Morph Micro Appear (NORMAL) Sodium (135-145) mmol/L Potassium (3.5-4.5) mmol/L Chloride (101-111) mmol/L Carbon Dioxide (21-32) mmol/L Anion Gap (6-13) BUN (6-20) mg/dL Creatinine (0.6-1.3) mg/dL Estimated GFR (MDRD) (>89) Glucose (74-104) mg/dL Calcium (8.5-10.3) mg/dL Total Bilirubin (0.2-1.0) mg/dL Direct Bilirubin (0.03-0.18) mg/dL AST (10-42) IU/L ALT (10-60) IU/L Alkaline Phosphatase (42-121) IU/L Total Protein (6.4-8.9) g/dL Albumin (3.2-5.5) g/dL Globulin (2.1-4.2) g/dL Stl C. diff Tox B Gene NEGATIVE (NEGATIVE) Blood Type Blood Type Recheck Antibody Screen Diagnostic Imaging Results Diagnostic Imaging Results: positive Final report reviewed Diagnostic Imaging Results Comments: CTA 02/10: No evidence of active GI bleeding. Diffuse large bowel wall thickening, without pericolonic fat stranding. Findings are suspicious for colitis, specifically C. difficile. Findings are similar to prior. <Jared Cordova MD - Last Filed: 02/10/25 17:59> Lab Results Other Lab Results: Lab Results x24hrs 02/10/25 02/10/25 02/10/25 Range/Units 15:49 05:16 04:45 WBC 14.5 H (4.8-10.8) x10^3/uL RBC 3.54 L (4.20-5.40) 10^6/uL Hgb 10.8 L 11.1 L (12.0-16.0) g/dL Hct 33.7 L 34.2 L (37.0-47.0) % MCV 96.6 (81.0-99.0) fL MCH 31.4 H (27.0-31.0) pg MCHC 32.5 (32.0-36.0) g/dL RDW 12.0 (12.0-15.0) % Plt Count 465 H (130-450) 10^3/uL MPV 8.5 (7.9-10.8) fL Neut # (Auto) Not Reportable Lymph # (Auto) Not Reportable [place] # (Auto) Not Reportable Eos # (Auto) Not Reportable Baso # (Auto) Not Reportable Absolute Nucleated RBC Not Reportable Total Counted 100 Band Neuts % (Manual) 35 H (0 - 10) % Abnorm Lymph % (Manual) 0 % Metamyelocytes % 5 H ( - 0) % Nucleated RBC % Not Reportable Neutrophils # (Manual) 12.8 H (1.5-6.6) 10^3/uL Lymphocytes # (Manual) 0.9 L (1.5-3.5) 10^3/uL Monocytes # (Manual) 0.1 (0.0-1.0) 10^3/uL Eosinophils # (Manual) 0.0 (0-0.7) 10^3/uL Basophils # (Manual) 0.0 (0-0.1) 10^3/uL Differential Comment MANUAL DIFFERENTIAL Manual Slide Review Indicated WBC Morphology 2+ TOXIC GRANULATION (NORMAL) Platelet Estimate INCREASED (>450,000) (NORMAL) Platelet Morphology NORMAL APPEARANCE (NORMAL) RBC Morph Micro Appear NORMAL APPEARANCE (NORMAL) Sodium 134 L (135-145) mmol/L Potassium 3.3 L (3.5-4.5) mmol/L Chloride 99 L (101-111) mmol/L Carbon Dioxide 24 (21-32) mmol/L Anion Gap 11.0 (6-13) BUN 20 (6-20) mg/dL Creatinine 0.6 (0.6-1.3) mg/dL Estimated GFR (MDRD) 97 (>89) Glucose 94 (74-104) mg/dL Calcium 8.5 (8.5-10.3) mg/dL Total Bilirubin 0.4 (0.2-1.0) mg/dL Direct Bilirubin < 0.10 (0.03-0.18) mg/dL AST 33 (10-42) IU/L ALT 66 H (10-60) IU/L Alkaline Phosphatase 357 H (42-121) IU/L Total Protein 5.5 L (6.4-8.9) g/dL Albumin 2.6 L (3.2-5.5) g/dL Globulin 2.9 (2.1-4.2) g/dL Stl C. diff Tox B Gene (NEGATIVE) Blood Type A POSITIVE Blood Type Recheck A POSITIVE Antibody Screen NEGATIVE 02/09/25 Range/Units 23:41 WBC (4.8-10.8) x10^3/uL RBC (4.20-5.40) 10^6/uL Hgb (12.0-16.0) g/dL Hct (37.0-47.0) % MCV (81.0-99.0) fL MCH (27.0-31.0) pg MCHC (32.0-36.0) g/dL RDW (12.0-15.0) % Plt Count (130-450) 10^3/uL MPV (7.9-10.8) fL Neut # (Auto) Lymph # (Auto) [place] # (Auto) Eos # (Auto) Baso # (Auto) Absolute Nucleated RBC Total Counted Band Neuts % (Manual) (0 - 10) % Abnorm Lymph % (Manual) % Metamyelocytes % ( - 0) % Nucleated RBC % Neutrophils # (Manual) (1.5-6.6) 10^3/uL Lymphocytes # (Manual) (1.5-3.5) 10^3/uL Monocytes # (Manual) (0.0-1.0) 10^3/uL Eosinophils # (Manual) (0-0.7) 10^3/uL Basophils # (Manual) (0-0.1) 10^3/uL Differential Comment Manual Slide Review WBC Morphology (NORMAL) Platelet Estimate (NORMAL) Platelet Morphology (NORMAL) RBC Morph Micro Appear (NORMAL) Sodium (135-145) mmol/L Potassium (3.5-4.5) mmol/L Chloride (101-111) mmol/L Carbon Dioxide (21-32) mmol/L Anion Gap (6-13) BUN (6-20) mg/dL Creatinine (0.6-1.3) mg/dL Estimated GFR (MDRD) (>89) Glucose (74-104) mg/dL Calcium (8.5-10.3) mg/dL Total Bilirubin (0.2-1.0) mg/dL Direct Bilirubin (0.03-0.18) mg/dL AST (10-42) IU/L ALT (10-60) IU/L Alkaline Phosphatase (42-121) IU/L Total Protein (6.4-8.9) g/dL Albumin (3.2-5.5) g/dL Globulin (2.1-4.2) g/dL Stl C. diff Tox B Gene NEGATIVE (NEGATIVE) Blood Type Blood Type Recheck Antibody Screen Review of Systems <Geraldine Thompson - Last Filed: 02/10/25 17:21> See HPI. <Jared Cordova MD - Last Filed: 02/10/25 17:59> Status of ROS: 10 or more systems reviewed and unremarkable except as noted in history and below Exam <Geraldine Thompsno - Last Filed: 02/10/25 17:21> Exam Vital Signs: Vital Signs x48h Temp Pulse Resp BP Pulse Ox 02/10/25 15:58 37.0 C 80 20 106/57 L 96 02/10/25 12:46 36.6 C 90 18 113/60 96 Constitutional normal general appearance, no apparent distress, average body habitus and alert HENMT normocephalic, head/scalp atraumatic and hearing grossly normal bilaterally Eyes PERRL, EOMs intact bilaterally, conjunctivae normal and no scleral icterus Neck/C-Spine visual inspection normal Respiratory breath sounds equal bilaterally, normal respiratory effort and clear to auscultation bilaterally Cardiovascular normal heart rate noted, regular rhythm noted, no murmur and no edema Gastrointestinal abdomen soft to palpation, nondistended and normoactive bowel sounds Moderate diffuse tenderness to palpation. No rebound or guarding. Midline vertical incision from prior hysterectomy. Genitourinary bladder normal to palpation Neurology no movement abnormality noted, no focal motor deficit noted, no sensory deficits noted and speech normal Psychiatry oriented x3 Skin skin color normal <Jared Cordova MD - Last Filed: 02/10/25 17:59> Exam Vital Signs: Vital Signs x48h Temp Pulse Resp BP Pulse Ox 02/10/25 15:58 37.0 C 80 20 106/57 L 96 02/10/25 12:46 36.6 C 90 18 113/60 96 Gastrointestinal Moderate diffuse tenderness to palpation. No rebound or guarding. Midline infraumbilical vertical incision from prior hysterectomy. Tenderness greater at superior aspect. Conclusion/Plan <Geraldine Thompson - Last Filed: 02/10/25 17:21> Problem List (1) Colitis: Plan: Differential diagnosis includes infectious etiology, Crohn's flare, colon cancer, etc. Discussed with the patient the need for non-emergent colonoscopy, either while inpatient or with her regular outpatient team. Will reach out to Dr. Branham's office to obtain colonoscopy records and discuss scheduling with them. Will explore OR scheduling options while inpatient. Continue with clear liquid diet, IVF and pain management. GI infection panel pending. Recommend continuing with Flagyl and Cipro. Anticipate patient will be here at least 24-48 hours. Lab Results Lab results reviewed: Yes 02/10/25 15:49 02/10/25 04:45 Diagnostic Imaging Results Diagnostic Imaging Results: positive Final report reviewed <Jared Cordova MD - Last Filed: 02/10/25 17:59> Problem List (1) Colitis: Plan: Differential diagnosis includes infectious etiology, Crohn's flare, colon cancer, etc. Discussed with the patient the need for non-emergent colonoscopy, either while inpatient or with her regular outpatient team. Will reach out to Dr. Branham's office to obtain colonoscopy records and discuss scheduling with them. Will explore OR scheduling options while inpatient. Continue with clear liquid diet, IVF and pain management. GI infection panel pending. Recommend continuing with Flagyl and Cipro. Anticipate patient will be here at least 24-48 hours. I spent 60 minutes with the patient and her discussing the surgical plan. I examined the patient personally and I am in agreeement with the plan stated above. CPT 87557
[2025-02-10] MEDS: SODIUM CHLORIDE FLUSH 0.9% 10 ML SYRINGE IVP PRN (17:15)
[2025-02-10] MEDS: PROCHLORPERAZINE 10 MG/2 ML VIAL IVP PRN (19:45)
[2025-02-10] MEDS: ATORVASTATIN 10 MG TABLET PO SCH (20:05)
[2025-02-11] MEDS: ONDANSETRON 4 MG/2 ML VIAL IVP PRN (04:44)
[2025-02-11 05:12] LABS: HCT - HEMATOCRIT 29.0 % (37.0-47.0); HGB - HEMOGLOBIN 9.8 g/dL (12.0-16.0); MEAN PLATELET VOLUME 8.6 fL (7.9-10.8); PLT - PLATELET COUNT 432 10^3/uL (130-450); RED CELL DISTRIBUTION WIDTH 12.4 % (12.0-15.0)
[2025-02-11 05:17] LABS: SLIDE REVIEW? Indicated
[2025-02-11 05:18] LABS: ABNORMAL LYMPHS % (MANUAL) 0 %; BASOPHILS # (MANUAL) 0.0 10^3/uL (0-0.1); EOSINOPHILS # (MANUAL) 0.0 10^3/uL (0-0.7)
[2025-02-11 05:27] LABS: BUN - BLOOD UREA NITROGEN 10.0 mg/dL (6-20); CARBON DIOXIDE - CO2 22.0 mmol/L (21-32); CREATININE 0.5 mg/dL (0.6-1.3); GFR - MDRD 120.0 (>89)
[2025-02-11 05:55] LABS: BAND NEUTROPHILS % (MANUAL) 24 %; LYMPHOCYTES # (MANUAL) 0.5 10^3/uL (1.5-3.5); LYMPHOCYTES % (MANUAL) 3 %; METAMYELOCYTES % (MANUAL) 5 %; MONOCYTES # (MANUAL) 0.2 10^3/uL (0.0-1.0); NEUTROPHILS # (MANUAL) 15.5 10^3/uL (1.5-6.6)
[2025-02-11 05:58] LABS: PLATELET ESTIMATE, MANUAL NORMAL (130-450,000) (NORMAL); PLATELET MORPHOLOGY NORMAL APPEARANCE (NORMAL); RBC MORPHOLOGY (MULTIPLE) 1+ HYPOCHROMASIA (NORMAL); WBC MORPHOLOGY (MULTIPLE) 3+ TOXIC GRANULATION (NORMAL)
[2025-02-11 08:10] LABS: ADENOVIRUS F 40/41 Not Detected (Not Detected); ASTROVIRUS Not Detected (Not Detected); C DIFFICILE TOXIN A/B Not Detected (Not Detected); CAMPYLOBACTER Not Detected (Not Detected); CRYPTOSPORIDIUM Not Detected (Not Detected); CYCLOSPORA CAYETANENSIS Not Detected (Not Detected); ENTAMOEBA HISTOLYTICA Not Detected (Not Detected); ENTEROAGGREGATIVE E COLI Not Detected (Not Detected); ENTEROPATHOGENIC E COLI Not Detected (Not Detected); ENTEROTOXIGENIC E COLI Not Detected (Not Detected); GIARDIA LAMBLIA Not Detected (Not Detected); NOROVIRUS GI/GII Not Detected (Not Detected); PLESIOMONAS SHIGELLOIDES Not Detected (Not Detected); ROTAVIRUS A Not Detected (Not Detected); SALMONELLA Not Detected (Not Detected); SAPOVIRUS Not Detected (Not Detected); SHIGA-TOXIN-PRODUCING E COLI Not Detected (Not Detected); SHIGELLA/ENTEROINVASIVE E COLI Not Detected (Not Detected); VIBRIO Not Detected (Not Detected); VIBRIO CHOLERAE Not Detected (Not Detected); YERSINIA ENTEROCOLITICA Not Detected (Not Detected)
[2025-02-11] MEDS: LEVOTHYROXINE 75 MCG TABLET PO SCH (08:38)
[2025-02-11] MEDS: PSYLLIUM PACKET PO SCH (08:38)
--- NOTE | 2025-02-11 11:43 | PROVIDER PROGRESS NOTE ---
Subjective Prog Note Date Prog Note Date: 02/11/25 Subjective Subjective: She is still not tolerating oral intake secondary to abdominal pain. She refused mesalamine/metamucil this AM. She has not been able to eat for weeks- triggered by clindamycin after failure of doxycycline for facial cellulitis. Had a BM early this AM with some blood, BMs at this point are brown liquid. at bedside. (51 years of marriage, no children). Current Medications Current Medications Current Medications: Current Medications Generic Name Dose Route Start Last Admin Trade Name Freq PRN Reason Stop Dose Admin Acetaminophen 650 mg 02/09/25 17:22 02/10/25 00:40 Acetaminophen 325 Mg Tablet PO 650 mg Q4HR PRN Administration Pain 1 to 4, or Fever Atorvastatin Calcium 10 mg 02/10/25 21:00 02/10/25 20:05 Atorvastatin 10 Mg Tablet PO 10 mg QPM RAMON Administration Famotidine 20 mg 02/10/25 21:00 02/11/25 08:37 Famotidine 20 Mg/2 Ml Vial IVP 20 mg BID RAMON Administration Sodium Chloride 1,000 mls @ 125 mls/hr 02/09/25 17:22 02/11/25 09:58 Normal Saline 0.9% IV 125 mls/hr .Q8H RAMON Administration Metronidazole 500 mg in 100 mls @ 100 mls/hr 02/09/25 17:22 02/11/25 11:19 Flagyl 500 Mg/100 Ml IV Infused Q8H RAMON Infusion Acetaminophen 1,000 mg in 100 mls @ 400 mls/hr 02/09/25 18:15 02/11/25 05:54 Acetaminophen IV Infused Q6HR PRN Infusion Moderate Pain (Level 4-6) Ciprofloxacin 400 mg in 200 mls @ 200 mls/hr 02/10/25 12:00 02/11/25 11:31 Cipro 400 Mg/200 Ml IV 200 mls/hr Q12H RAMON Administration Multivitamins 10 ml/ Zinc/ 2,011 mls @ 83 mls/hr 02/11/25 19:00 Copper/Manganese/Selenium 1 ml IV / Amino Acids/Electrolytes/ 1900 RAMON Dextrose Protocol Fat Emulsion Intravenous 250 mls @ 21 mls/hr 02/11/25 19:00 Intralipid 20% IV 1900 RAMON Lactobacillus Rhamnosus 1 cap 02/10/25 17:00 02/11/25 08:38 Lactobacillus Rhamnosus Gg Capsule PO 1 cap DAILY RAMON Administration Levothyroxine Sodium 75 mcg 02/11/25 09:00 02/11/25 08:38 Levothyroxine 75 Mcg Tablet PO 75 mcg DAILY RAMON Administration Methylprednisolone 40 mg 02/11/25 14:00 Methylprednisolone Succinate 40 Mg/Ml Vial IVP 02/12/25 06:01 TID RAMON Morphine Sulfate 2 mg 02/10/25 14:46 02/11/25 11:30 Morphine 2 Mg/Ml Carpuject IVP 2 mg Q2HR PRN Administration Severe Pain (Level 7-10) Ondansetron HCl 4 mg 02/09/25 17:22 02/10/25 16:08 Ondansetron Odt 4 Mg Tablet TL 4 mg Q6HR PRN Administration Nausea / Vomiting Ondansetron HCl 4 mg 02/09/25 17:22 02/11/25 04:44 Ondansetron 4 Mg/2 Ml Vial IVP 4 mg Q6HR PRN Administration Nausea / Vomiting Patient Own Med ( 4 each 02/10/25 13:00 02/11/25 08:39 Mesalamine [Pentasa] PO Not Given 250 Mg Capsule) QID [facility] Prochlorperazine Edisylate 10 mg 02/09/25 17:22 02/10/25 19:45 Prochlorperazine 10 Mg/2 Ml Vial IVP 10 mg Q6HR PRN Administration Nausea / Vomiting Psyllium Hydrophilic Mucilloid 1 packet 02/11/25 09:00 02/11/25 08:38 Psyllium Packet PO Not Given DAILY [facility] Sodium Chloride 10 ml 02/09/25 17:22 02/10/25 17:15 Sodium Chloride Flush 0.9% 10 Ml Syringe IVP 10 ml PRN PRN Administration NEEDED PER PROVIDER ORDERS Sodium Chloride 10 ml 02/09/25 17:22 02/11/25 08:39 Sodium Chloride Flush 0.9% 10 Ml Syringe IVP 10 ml 0100,0900,1700 RAMON Administration Zinc Oxide 113 gm 02/09/25 18:53 Cod Liver Oil/Zinc Oxide 113 Gm Tube TOP PRN PRN Skin Care Objective Vital Signs/Intake & Output Reviewed Vital Signs: Yes Vital Signs: Vital Signs x48h Temp Pulse Resp BP Pulse Ox 02/11/25 09:15 36.7 C 82 18 121/71 96 Intake & Output: Intake & Output 02/08/25 02/09/25 02/10/25 02/11/25 23:59 23:59 23:59 23:59 Intake Total 2300 / 2300 3597 / 3597 2800 / 2800 Output Total Balance 2300 / 2300 3597 / 3597 2799 / 2799 Weight (kg) 51 kg Objective General Appearance: positive No acute distress and Alert Eyes Bilateral: positive Normal inspection ENT: positive ENT inspection nml Neck: positive Nml inspection Respiratory: positive Chest non-tender, No respiratory distress and Breath sounds nml Cardiovascular: positive Regular rate & rhythm Abdomen: positive Other (mild diffuse tenderness. Patient is distractable on exam. ) Back: positive Nml inspection Lab Results 02/11/25 04:50 02/11/25 04:50 Other Labs: Lab Results x24hrs 02/11/25 02/10/25 02/09/25 Range/Units 04:50 15:49 23:41 WBC 17.0 H (4.8-10.8) x10^3/uL RBC 3.06 L (4.20-5.40) 10^6/uL Hgb 9.8 L 10.8 L (12.0-16.0) g/dL Hct 29.0 L 33.7 L (37.0-47.0) % MCV 94.8 (81.0-99.0) fL MCH 32.0 H (27.0-31.0) pg MCHC 33.8 (32.0-36.0) g/dL RDW 12.4 (12.0-15.0) % Plt Count 432 (130-450) 10^3/uL MPV 8.6 (7.9-10.8) fL Neut # (Auto) Not Reportable Lymph # (Auto) Not Reportable [place] # (Auto) Not Reportable Eos # (Auto) Not Reportable Baso # (Auto) Not Reportable Absolute Nucleated RBC Not Reportable Total Counted 100 Band Neuts % (Manual) 24 H (0 - 10) % Abnorm Lymph % (Manual) 0 % Metamyelocytes % 5 H ( - 0) % Nucleated RBC % Not Reportable Neutrophils # (Manual) 15.5 H (1.5-6.6) 10^3/uL Lymphocytes # (Manual) 0.5 L (1.5-3.5) 10^3/uL Monocytes # (Manual) 0.2 (0.0-1.0) 10^3/uL Eosinophils # (Manual) 0.0 (0-0.7) 10^3/uL Basophils # (Manual) 0.0 (0-0.1) 10^3/uL Differential Comment MANUAL DIFFERENTIAL Manual Slide Review Indicated WBC Morphology 3+ TOXIC GRANULATION (NORMAL) Platelet Estimate NORMAL (130-450,000) (NORMAL) Platelet Morphology NORMAL APPEARANCE (NORMAL) RBC Morph Micro Appear 1+ HYPOCHROMASIA (NORMAL) Sodium 132 L (135-145) mmol/L Potassium 3.6 (3.5-4.5) mmol/L Chloride 103 (101-111) mmol/L Carbon Dioxide 22 (21-32) mmol/L Anion Gap 7.0 (6-13) BUN 10 (6-20) mg/dL Creatinine 0.5 L (0.6-1.3) mg/dL Estimated GFR (MDRD) 120 (>89) Glucose 125 H (74-104) mg/dL Calcium 8.1 L (8.5-10.3) mg/dL Stl C. cayetanensis PCR Not Detected (Not Detected) Stool Rotavirus A PCR Not Detected (Not Detected) Stl Adenov F 40/41 PCR Not Detected (Not Detected) Stool Astrovirus (PCR) Not Detected (Not Detected) Stool Campylobacter PCR Not Detected (Not Detected) Stl C. diff Tox A/B PCR Not Detected (Not Detected) Stool Cryptosporidium PCR Not Detected (Not Detected) Stl Sh Tox Pr E STEC PCR Not Detected (Not Detected) Stool E coli O157 PCR Not applicable (Not Detected) Stl Enterotoxigenic E PCR Not Detected (Not Detected) Stool EPEC (PCR) Not Detected (Not Detected) Stl E. histolytica PCR Not Detected (Not Detected) Stool Giardia Lamblia PCR Not Detected (Not Detected) Stl P. shigelloides PCR Not Detected (Not Detected) Stool Salmonella PCR Not Detected (Not Detected) Stool Sapovirus (PCR) Not Detected (Not Detected) Stl Shigella/EIEC PCR Not Detected (Not Detected) St Y.enterocolitica PCR Not Detected (Not Detected) Stool Vibrio (PCR) Not Detected (Not Detected) Stl Vibrio cholerae PCR Not Detected (Not Detected) Stl Enteroaggr Ecoli PCR Not Detected (Not Detected) Stl Norovirus GI/GII PCR Not Detected (Not Detected) Assessment/Plan Problem List (1) Colitis: Impression: History of Crohn's disease. This was initially treated as a Crohn's flare in the outpatient setting with budesonide with no effect. Her WBC is rising. recheck CBC in AM. 02/09/25 02/10/25 02/11/25 13:31 04:45 04:50 WBC 13.2 H 14.5 H 17.0 H Recent antibiotic use immediately prior to symptom onset She was tested and found to be negative for C. difficile x 2 GI profile PCR is negative. 7 kg weight loss in the last [address] x2. 2nd CT is CTA, no active bleeding. Both CTs show diffuse large bowel wall thickening without pericolonic fat stranding. CT does raise the possibility of C diff, but PCR has been nag x2. Her LFTs have improved with IVF- not checked today. I will check them again tomorrow. I have escalated her antibiotics to ciprofloxacin and Flagyl given her penicillin allergy Previous provider spoke with Dr. Clayton, on-call for her GI Dr. He recommended colonoscopy. General surgery has consulted. considering colonos- trying to obtain records. I spoke directly with HELENE this afternoon and gave fax # to our [facility]. Morphine is not controlling her pain. I have changed from morphine to dilaudid for pain. Discussed with Dr Pozo this afternoon, who is recommending against colonoscopy in the setting of an acutely inflamed colon due to risk of perforation. This patient's diagnosis and treatment plan was discussed this AM with attending physician as a part of multi disciplinary rounding meeting. I have spent 51minutes in the care of this patient today. This includes time [id number], review and ordering of diagnostic imaging and laboratory studies and consultation with other providers. Monitoring the patient's signs symptoms, evaluation of medication effectiveness and patient's response to treatment.
[2025-02-11] MEDS: HYDROmorphone 0.5 MG/0.5 ML SYRINGE IVP PRN (12:50)
--- NOTE | 2025-02-11 13:41 | PROVIDER PROGRESS NOTE ---
Subjective Prog Note Date Prog Note Date: 02/11/25 Prog Note Time: 13:40 Subjective Pt reports feeling: No change Subjective: No acute events overnight. Debbie reports feeling about the same as yesterday. Her abdominal pain waxes and wanes, but she feels that the pain medication is helping. She still feels nauseous but is tolerating clear liquids without emesis. She had 3 episodes of diarrhea overnight but has not had any bowel movements during the day. Current Medications Current Medications Current Medications: Current Medications Generic Name Dose Route Start Last Admin Trade Name Freq PRN Reason Stop Dose Admin Acetaminophen 650 mg 02/09/25 17:22 02/10/25 00:40 Acetaminophen 325 Mg Tablet PO 650 mg Q4HR PRN Administration Pain 1 to 4, or Fever Atorvastatin Calcium 10 mg 02/10/25 21:00 02/10/25 20:05 Atorvastatin 10 Mg Tablet PO 10 mg QPM RAMON Administration Famotidine 20 mg 02/10/25 21:00 02/11/25 08:37 Famotidine 20 Mg/2 Ml Vial IVP 20 mg BID RAMON Administration Hydromorphone HCl 0.5 mg 02/11/25 11:45 02/11/25 12:50 Hydromorphone 0.5 Mg/0.5 Ml Syringe IVP 0.5 mg Q2H PRN Administration Severe Pain (Level 7-10) Sodium Chloride 1,000 mls @ 125 mls/hr 02/09/25 17:22 02/11/25 09:58 Normal Saline 0.9% IV 125 mls/hr .Q8H RAMON Administration Metronidazole 500 mg in 100 mls @ 100 mls/hr 02/09/25 17:22 02/11/25 11:19 Flagyl 500 Mg/100 Ml IV Infused Q8H RAMON Infusion Acetaminophen 1,000 mg in 100 mls @ 400 mls/hr 02/09/25 18:15 02/11/25 12:50 Acetaminophen IV 400 mls/hr Q6HR PRN Administration Moderate Pain (Level 4-6) Ciprofloxacin 400 mg in 200 mls @ 200 mls/hr 02/10/25 12:00 02/11/25 11:31 Cipro 400 Mg/200 Ml IV 200 mls/hr Q12H RAMON Administration Multivitamins 10 ml/ Zinc/ 2,011 mls @ 83 mls/hr 02/11/25 19:00 Copper/Manganese/Selenium 1 ml IV / Amino Acids/Electrolytes/ 1900 [facility] Dextrose Protocol Fat Emulsion Intravenous 250 mls @ 21 mls/hr 02/11/25 19:00 Intralipid 20% IV 1900 [facility] Lactobacillus Rhamnosus 1 cap 02/10/25 17:00 02/11/25 08:38 Lactobacillus Rhamnosus Gg Capsule PO 1 cap DAILY RAMON Administration Levothyroxine Sodium 75 mcg 02/11/25 09:00 02/11/25 08:38 Levothyroxine 75 Mcg Tablet PO 75 mcg DAILY [facility] Administration Methylprednisolone 40 mg 02/11/25 14:00 Methylprednisolone Succinate 40 Mg/Ml Vial IVP 02/12/25 06:01 TID [facility] Ondansetron HCl 4 mg 02/09/25 17:22 02/10/25 16:08 Ondansetron Odt 4 Mg Tablet TL 4 mg Q6HR PRN Administration Nausea / Vomiting Ondansetron HCl 4 mg 02/09/25 17:22 02/11/25 04:44 Ondansetron 4 Mg/2 Ml Vial IVP 4 mg Q6HR PRN Administration Nausea / Vomiting Patient Own Med ( 4 each 02/10/25 13:00 02/11/25 13:02 Mesalamine [Pentasa] PO Not Given 250 Mg Capsule) QID [facility] Prochlorperazine Edisylate 10 mg 02/09/25 17:22 02/10/25 19:45 Prochlorperazine 10 Mg/2 Ml Vial IVP 10 mg Q6HR PRN Administration Nausea / Vomiting Psyllium Hydrophilic Mucilloid 1 packet 02/11/25 09:00 02/11/25 08:38 Psyllium Packet PO Not Given DAILY [facility] Sodium Chloride 10 ml 02/09/25 17:22 02/10/25 17:15 Sodium Chloride Flush 0.9% 10 Ml Syringe IVP 10 ml PRN PRN Administration NEEDED PER PROVIDER ORDERS Sodium Chloride 10 ml 02/09/25 17:22 02/11/25 08:39 Sodium Chloride Flush 0.9% 10 Ml Syringe IVP 10 ml 0100,0900,1700 [facility] Administration Zinc Oxide 113 gm 02/09/25 18:53 Cod Liver Oil/Zinc Oxide 113 Gm Tube TOP PRN PRN Skin Care Objective Vital Signs/Intake & Output Reviewed Vital Signs: Yes Vital Signs: Vital Signs x48h Temp Pulse Resp BP Pulse Ox 02/11/25 09:15 36.7 C 82 18 121/71 96 Intake & Output: Intake & Output 02/08/25 02/09/25 02/10/25 02/11/25 23:59 23:59 23:59 23:59 Intake Total 2300 / 2300 3597 / 3597 2800 / 2800 Output Total Balance 2300 / 2300 3597 / 3597 2799 / 2799 Weight (kg) 51 kg Objective General Appearance: positive No acute distress and Alert Eyes Bilateral: positive Normal inspection, EOMI and No scleral icterus Neck: positive Nml inspection and Trachea midline Respiratory: positive Chest non-tender, No respiratory distress and Breath sounds nml Cardiovascular: positive Regular rate & rhythm and No murmur Abdomen: positive Non-tender, Nml bowel sounds and No distention; negative Guarding or Rebound Skin: positive Color nml, Warm and Dry Extremities: positive No pedal edema Neurologic/Psychiatric: positive Oriented x3 Lab Results 02/11/25 04:50 02/11/25 04:50 Other Labs: Lab Results x24hrs 02/11/25 02/10/25 02/09/25 Range/Units 04:50 15:49 23:41 WBC 17.0 H (4.8-10.8) x10^3/uL RBC 3.06 L (4.20-5.40) 10^6/uL Hgb 9.8 L 10.8 L (12.0-16.0) g/dL Hct 29.0 L 33.7 L (37.0-47.0) % MCV 94.8 (81.0-99.0) fL MCH 32.0 H (27.0-31.0) pg MCHC 33.8 (32.0-36.0) g/dL RDW 12.4 (12.0-15.0) % Plt Count 432 (130-450) 10^3/uL MPV 8.6 (7.9-10.8) fL Neut # (Auto) Not Reportable Lymph # (Auto) Not Reportable [place] # (Auto) Not Reportable Eos # (Auto) Not Reportable Baso # (Auto) Not Reportable Absolute Nucleated RBC Not Reportable Total Counted 100 Band Neuts % (Manual) 24 H (0 - 10) % Abnorm Lymph % (Manual) 0 % Metamyelocytes % 5 H ( - 0) % Nucleated RBC % Not Reportable Neutrophils # (Manual) 15.5 H (1.5-6.6) 10^3/uL Lymphocytes # (Manual) 0.5 L (1.5-3.5) 10^3/uL Monocytes # (Manual) 0.2 (0.0-1.0) 10^3/uL Eosinophils # (Manual) 0.0 (0-0.7) 10^3/uL Basophils # (Manual) 0.0 (0-0.1) 10^3/uL Differential Comment MANUAL DIFFERENTIAL Manual Slide Review Indicated WBC Morphology 3+ TOXIC GRANULATION (NORMAL) Platelet Estimate NORMAL (130-450,000) (NORMAL) Platelet Morphology NORMAL APPEARANCE (NORMAL) RBC Morph Micro Appear 1+ HYPOCHROMASIA (NORMAL) Sodium 132 L (135-145) mmol/L Potassium 3.6 (3.5-4.5) mmol/L Chloride 103 (101-111) mmol/L Carbon Dioxide 22 (21-32) mmol/L Anion Gap 7.0 (6-13) BUN 10 (6-20) mg/dL Creatinine 0.5 L (0.6-1.3) mg/dL Estimated GFR (MDRD) 120 (>89) Glucose 125 H (74-104) mg/dL Calcium 8.1 L (8.5-10.3) mg/dL Stl C. cayetanensis PCR Not Detected (Not Detected) Stool Rotavirus A PCR Not Detected (Not Detected) Stl Adenov F 40/41 PCR Not Detected (Not Detected) Stool Astrovirus (PCR) Not Detected (Not Detected) Stool Campylobacter PCR Not Detected (Not Detected) Stl C. diff Tox A/B PCR Not Detected (Not Detected) Stool Cryptosporidium PCR Not Detected (Not Detected) Stl Sh Tox Pr E STEC PCR Not Detected (Not Detected) Stool E coli O157 PCR Not applicable (Not Detected) Stl Enterotoxigenic E PCR Not Detected (Not Detected) Stool EPEC (PCR) Not Detected (Not Detected) Stl E. histolytica PCR Not Detected (Not Detected) Stool Giardia Lamblia PCR Not Detected (Not Detected) Stl P. shigelloides PCR Not Detected (Not Detected) Stool Salmonella PCR Not Detected (Not Detected) Stool Sapovirus (PCR) Not Detected (Not Detected) Stl Shigella/EIEC PCR Not Detected (Not Detected) St Y.enterocolitica PCR Not Detected (Not Detected) Stool Vibrio (PCR) Not Detected (Not Detected) Stl Vibrio cholerae PCR Not Detected (Not Detected) Stl Enteroaggr Ecoli PCR Not Detected (Not Detected) Stl Norovirus GI/GII PCR Not Detected (Not Detected) ABX Reporting Has patient been on IV antibiotics over the past 48 hours?: Yes Assessment/Plan Problem List (1) Colitis: Impression: Assessment: Hemodynamically stable and unchanged clinical picture. It continues to be unclear if the etiology of her abdominal pain is from a bacterial infectious, a Crohn's flare, or both. 1) FEN - Daily BMP. No significant electrolyte disturbances today, continue to monitor and treat as needed. NS currently running at 125ml/h, planning to start TPN per internal medicine team. Advance PO diet as tolerated. 2) ID - Daily CBC. White count has continued to increase 13.2 > 14.5 > 17.0 prior to starting steroids. Despite negative c diff x2 and negative GI panel, recommend continuing with Ciprofloxacin and Flagyl per internal medicine team given severely elevated procalcitonin of 29.11 on admission. Recommend trending procalcitonin. 3) Crohn's - Given that she has been on antibiotics for a few days without improvement, recommend continuing with Methylprednisolone 40mg TID per internal medicine team. Can hold Mesalamine while on steroids. Recommend trending CRP. Waiting for records from GI office to be faxed. Would not recommend performing a colonoscopy at this time due to severe inflammation increasing the risk of perforation during the procedure. Plan for outpatient colonoscopy in 2-3 months after colon has had time to heal. Discharge planning: Patient is not yet meeting milestones for safe discharge. We will continue to focus on pain management, increasing PO intake, and decreasing episodes of diarrhea. ATTENDING ADDENDUM: I saw and evaluated the patient. I independently reviewed the patients chart and objective findings. I agree with the documentation above. Assumed human resource consultant role from Dr. Cordova today, patient on medicine service. [place], 74F with 30yr history of crohns. Denies every having a crohns related hospitalization or flare. Initial diagnosis was via outpatient workup for abdominal pain, and been on mesalamine since, with daily formed BM. Has been followed by GI with many colonoscopies, patient/partner report that involvement has been limited to the terminal ileum (have requested records to review). Has had hysterectomy and lap surgeries for endometriosis, but no GI/bowel surgeries. Shes now had 3 weeks of diarrhea and PO intolerance following treatment for a H&N infection. Admitted with procalcitonin of 29 and started on flagyl for presumed cdiff, but WBC continued to rise with minimal change in clinical status (minimal appetite, tolerates water). Abx broadened to cipro/flagyl. Two CTs showing stable pancolitis (thickened colonic wall without abscess) on 02/03 and 02/10. Also stool cx & Cdiff negative. Today her abdominal exam in benign, and she endorses less # stool. Medicine team has started prednisone and PPN. Overall, she may have developed a bacterial colitis that triggered a crohns flare? Recommend continuing to treat for both with cipro/flagyl and steroids. Agree with starting PPN. Home when tolerating diet and pain resolves (which presumably correlates with improved diarrhea). Will review old GI records when received, and plan for outpatient colonoscopy no sooner than 6 weeks. Misty Pozo DO, FACS General Surgeon, [facility]
[2025-02-11] MEDS: methylPREDNISolone SUCCINATE 40 MG/ML VIAL IVP SCH (14:33)
[2025-02-11] MEDS: FAT EMULSION 20% 250 ML IV SCH (19:10)
[2025-02-11] MEDS: PPN (CLINIMIX E 4.25/5) 2,000 ML with MULTIVITAMIN 10 ML, TRACE ELEMENTS 1 ML IV SCH (19:11)
[2025-02-12 07:23] LABS: HCT - HEMATOCRIT 25.5 % (37.0-47.0); HGB - HEMOGLOBIN 8.2 g/dL (12.0-16.0); MEAN PLATELET VOLUME 8.7 fL (7.9-10.8); PLT - PLATELET COUNT 351 10^3/uL (130-450); RED CELL DISTRIBUTION WIDTH 12.5 % (12.0-15.0); SLIDE REVIEW? Indicated
[2025-02-12 07:24] LABS: ABNORMAL LYMPHS % (MANUAL) 0 %; BASOPHILS # (MANUAL) 0.0 10^3/uL (0-0.1); EOSINOPHILS # (MANUAL) 0.0 10^3/uL (0-0.7)
[2025-02-12 07:48] LABS: ALT ALANINE AMINOTRANSFERASE 32.0 IU/L (10-60); AST ASPARTATE AMINOTRANSFERASE 12.0 IU/L (10-42); BUN - BLOOD UREA NITROGEN 12.0 mg/dL (6-20); CARBON DIOXIDE - CO2 25.0 mmol/L (21-32); CREATININE 0.4 mg/dL (0.6-1.3); CRP - C-REACTIVE PROTEIN 11.2 mg/dL (<0.5); GFR - MDRD 155.0 (>89); PHOSPHORUS 1.7 mg/dL (2.5-5.0)
[2025-02-12 08:12] LABS: BAND NEUTROPHILS % (MANUAL) 13 %; LYMPHOCYTES # (MANUAL) 0.5 10^3/uL (1.5-3.5); LYMPHOCYTES % (MANUAL) 5 %; METAMYELOCYTES % (MANUAL) 3 %; MONOCYTES # (MANUAL) 0.2 10^3/uL (0.0-1.0); NEUTROPHILS # (MANUAL) 9.5 10^3/uL (1.5-6.6)
[2025-02-12 08:15] LABS: PLATELET ESTIMATE, MANUAL NORMAL (130-450,000) (NORMAL); PLATELET MORPHOLOGY NORMAL APPEARANCE (NORMAL); RBC MORPHOLOGY (MULTIPLE) NORMAL APPEARANCE (NORMAL)
--- NOTE | 2025-02-12 08:38 | PROVIDER PROGRESS NOTE ---
Subjective Prog Note Date Prog Note Date: 02/12/25 Prog Note Time: 08:36 Subjective Pt reports feeling: No change Subjective: No acute events overnight. Debbie reports feeling the same this morning. Her nausea is still present, she has been able to tolerate water/juice and looking forward to trying jello this morning. She denies emesis. She had 3 episodes of bloody diarrhea overnight. She continues to have abdominal pain and cramping. Current Medications Current Medications Current Medications: Current Medications Generic Name Dose Route Start Last Admin Trade Name Freq PRN Reason Stop Dose Admin Acetaminophen 650 mg 02/09/25 17:22 02/10/25 00:40 Acetaminophen 325 Mg Tablet PO 650 mg Q4HR PRN Administration Pain 1 to 4, or Fever Atorvastatin Calcium 10 mg 02/10/25 21:00 02/11/25 20:23 Atorvastatin 10 Mg Tablet PO 10 mg QPM RAMON Administration Famotidine 20 mg 02/10/25 21:00 02/11/25 20:15 Famotidine 20 Mg/2 Ml Vial IVP 20 mg BID RAMON Administration Hydromorphone HCl 0.5 mg 02/11/25 11:45 02/11/25 12:50 Hydromorphone 0.5 Mg/0.5 Ml Syringe IVP 0.5 mg Q2H PRN Administration Severe Pain (Level 7-10) Metronidazole 500 mg in 100 mls @ 100 mls/hr 02/09/25 17:22 02/12/25 02:52 Flagyl 500 Mg/100 Ml IV Infused Q8H RAMON Infusion Acetaminophen 1,000 mg in 100 mls @ 400 mls/hr 02/09/25 18:15 02/11/25 20:52 Acetaminophen IV Infused Q6HR PRN Infusion Moderate Pain (Level 4-6) Ciprofloxacin 400 mg in 200 mls @ 200 mls/hr 02/10/25 12:00 02/12/25 01:00 Cipro 400 Mg/200 Ml IV Infused Q12H RAMON Infusion Multivitamins 10 ml/ Zinc/ 2,011 mls @ 83 mls/hr 02/11/25 19:00 02/11/25 19:11 Copper/Manganese/Selenium 1 ml IV 83 mls/hr / Amino Acids/Electrolytes/ 1900 RAMON Administration Dextrose Protocol Fat Emulsion Intravenous 250 mls @ 21 mls/hr 02/11/25 19:00 02/12/25 07:00 Intralipid 20% IV Infused 1900 RAMON Infusion Lactobacillus Rhamnosus 1 cap 02/10/25 17:00 02/11/25 08:38 Lactobacillus Rhamnosus Gg Capsule PO 1 cap DAILY RAMON Administration Levothyroxine Sodium 75 mcg 02/11/25 09:00 02/11/25 08:38 Levothyroxine 75 Mcg Tablet PO 75 mcg DAILY RAMON Administration Ondansetron HCl 4 mg 02/09/25 17:22 02/10/25 16:08 Ondansetron Odt 4 Mg Tablet TL 4 mg Q6HR PRN Administration Nausea / Vomiting Ondansetron HCl 4 mg 02/09/25 17:22 02/11/25 04:44 Ondansetron 4 Mg/2 Ml Vial IVP 4 mg Q6HR PRN Administration Nausea / Vomiting Prochlorperazine Edisylate 10 mg 02/09/25 17:22 02/10/25 19:45 Prochlorperazine 10 Mg/2 Ml Vial IVP 10 mg Q6HR PRN Administration Nausea / Vomiting Psyllium Hydrophilic Mucilloid 1 packet 02/11/25 09:00 02/11/25 08:38 Psyllium Packet PO Not Given DAILY RAMON Sodium Chloride 10 ml 02/09/25 17:22 02/10/25 17:15 Sodium Chloride Flush 0.9% 10 Ml Syringe IVP 10 ml PRN PRN Administration NEEDED PER PROVIDER ORDERS Sodium Chloride 10 ml 02/09/25 17:22 02/12/25 00:00 Sodium Chloride Flush 0.9% 10 Ml Syringe IVP 10 ml 0100,0900,1700 RAMON Administration Zinc Oxide 113 gm 02/09/25 18:53 Cod Liver Oil/Zinc Oxide 113 Gm Tube TOP PRN PRN Skin Care Objective Vital Signs/Intake & Output Reviewed Vital Signs: Yes Intake & Output: Intake & Output 02/09/25 02/10/25 02/11/25 02/12/25 23:59 23:59 23:59 23:59 Intake Total 2300 / 2300 3597 / 3597 4610 / 4610 550 / 550 Output Total Balance 2300 / 2300 3597 / 3597 4609 / 4609 550 / 550 Weight (kg) 51 kg Objective General Appearance: positive No acute distress and Alert Eyes Bilateral: positive Normal inspection, EOMI and No scleral icterus ENT: positive No signs of dehydration Neck: positive Nml inspection and Trachea midline Respiratory: positive Chest non-tender, No respiratory distress and Breath sounds nml Cardiovascular: positive Regular rate & rhythm, No murmur and No gallop Abdomen: positive Nml bowel sounds, No distention and Tenderness (Soft abdomen. Moderate diffuse tenderness with light palpation. ); negative Guarding or Rebound Rectal: positive Non-tender and Other (2 small flecks of blood clot. No active bleeding. ); negative Hemorrhoid Skin: positive Color nml, Warm and Dry Extremities: positive Pedal edema Neurologic/Psychiatric: positive Oriented x3 and Mood/affect nml Lab Results 02/12/25 07:13 02/12/25 07:13 Other Labs: Lab Results x24hrs 02/12/25 02/12/25 Range/Units 07:13 07:13 WBC 10.5 (4.8-10.8) x10^3/uL RBC 2.63 L (4.20-5.40) 10^6/uL Hgb 8.2 L (12.0-16.0) g/dL Hct 25.5 L (37.0-47.0) % MCV 97.0 (81.0-99.0) fL MCH 31.2 H (27.0-31.0) pg MCHC 32.2 (32.0-36.0) g/dL RDW 12.5 (12.0-15.0) % Plt Count 351 (130-450) 10^3/uL MPV 8.7 (7.9-10.8) fL Neut # (Auto) Not Reportable Lymph # (Auto) Not Reportable [place] # (Auto) Not Reportable Eos # (Auto) Not Reportable Baso # (Auto) Not Reportable Absolute Nucleated RBC Not Reportable Total Counted 100 Band Neuts % (Manual) 13 H (0 - 10) % Abnorm Lymph % (Manual) 0 % Metamyelocytes % 3 H ( - 0) % Nucleated RBC % Not Reportable Neutrophils # (Manual) 9.5 H (1.5-6.6) 10^3/uL Lymphocytes # (Manual) 0.5 L (1.5-3.5) 10^3/uL Monocytes # (Manual) 0.2 (0.0-1.0) 10^3/uL Eosinophils # (Manual) 0.0 (0-0.7) 10^3/uL Basophils # (Manual) 0.0 (0-0.1) 10^3/uL Differential Comment MANUAL DIFFERENTIAL Manual Slide Review Indicated WBC Morphology 1+ DOHLE BODIES 2+ TOXIC GRANULATION (NORMAL) Platelet Estimate NORMAL (130-450,000) (NORMAL) Platelet Morphology NORMAL APPEARANCE (NORMAL) RBC Morph Micro Appear NORMAL APPEARANCE (NORMAL) Sodium 134 L (135-145) mmol/L Potassium 3.5 (3.5-4.5) mmol/L Chloride 105 (101-111) mmol/L Carbon Dioxide 25 (21-32) mmol/L Anion Gap 4.0 L (6-13) BUN 12 (6-20) mg/dL Creatinine 0.4 L (0.6-1.3) mg/dL Estimated GFR (MDRD) 155 (>89) Glucose 165 H (74-104) mg/dL Calcium 8.3 L (8.5-10.3) mg/dL Phosphorus 1.7 L (2.5-5.0) mg/dL Magnesium 2.1 (1.7-2.3) mg/dL Total Bilirubin 0.3 (0.2-1.0) mg/dL AST 12 (10-42) IU/L ALT 32 (10-60) IU/L Alkaline Phosphatase 448 H (42-121) IU/L C-Reactive Protein 11.2 H (<0.5) mg/dL Total Protein 4.8 L (6.4-8.9) g/dL Albumin 2.3 L (3.2-5.5) g/dL Globulin 2.5 (2.1-4.2) g/dL Albumin/Globulin Ratio 0.9 L (1.0-2.2) Prealbumin 10 L (17-34) mg/dL Procalcitonin Immunoas 4.82 H* (<0.5) ng/mL ABX Reporting Has patient been on IV antibiotics over the past 48 hours?: Yes Assessment/Plan Problem List (1) Colitis: Impression: Assessment: 74yoF with hx of Crohn's disease and hemorrhoids on admission day #4 for diarrhea and pancolitis. Hemodynamically stable but downtrending Hgb in the setting of bloody diarrhea. It continues to be unclear if the etiology of her abdominal pain is from a bacterial infectious, a Crohn's flare, or both. 1) FEN - Daily BMP. No significant electrolyte disturbances today, continue to monitor and treat as needed. NS currently running at 125ml/h and TPN per internal medicine team. Encouraging full liquid diet as tolerated. 2) ID - Daily CBC. White count has decreased today from 13.2 > 14.5 > 17.0 > 10.5 after starting steroids. Procalcitonin downtrending from 29.11 > 4.82. Despite negative c diff x2 and negative GI panel, recommend continuing with Ciprofloxacin and Flagyl 3) Crohn's - Given that she has been on antibiotics for a few days without improvement, recommend continuing with Methylprednisolone 40mg TID per internal medicine team. Can hold Mesalamine while on steroids. CRP downtrending from 25.0 > 11.2. Most recent GI clinic note and colonoscopy received, which showed some disease activity in 2021 but was managed with diet and medication. 4) Anemia - Hgb downtrending 12.3 > 11.1 > 10.8 > 9.8 > 8.2. Hx of internal hemorrhoids and currently having bloody diarrhea. Rectal exam today with small clots in vault, no active bleeding. Type and screen if Hgb drops again tomorrow. Transfuse if Hgb below 7. CTA 02/10 showed no active GI bleed. Would not recommend performing a colonoscopy at this time due to severe inflammation increasing the risk of perforation during the procedure. Plan for outpatient colonoscopy in 2-3 months after colon has had time to heal. Discharge planning: Patient is not yet meeting milestones for safe discharge. We will continue to focus on pain management, increasing PO intake, and decreasing episodes of diarrhea.
[2025-02-12] MEDS: SODIUM PHOSPHATE 15 MMOL in SODIUM CHLORIDE 0.9% 250 ML IV ONE (12:33)
--- NOTE | 2025-02-12 13:40 | PROVIDER PROGRESS NOTE ---
Subjective Prog Note Date Prog Note Date: 02/12/25 Subjective Subjective: slowly improving. Still continues to not have an appetite. She has crampy abdominal pain and does not want to eat. Current Medications Current Medications Current Medications: Current Medications Generic Name Dose Route Start Last Admin Trade Name Freq PRN Reason Stop Dose Admin Acetaminophen 650 mg 02/09/25 17:22 02/10/25 00:40 Acetaminophen 325 Mg Tablet PO 650 mg Q4HR PRN Administration Pain 1 to 4, or Fever Atorvastatin Calcium 10 mg 02/10/25 21:00 02/11/25 20:23 Atorvastatin 10 Mg Tablet PO 10 mg QPM RAMON Administration Famotidine 20 mg 02/10/25 21:00 02/12/25 09:20 Famotidine 20 Mg/2 Ml Vial IVP 20 mg BID RAMON Administration Hydromorphone HCl 0.5 mg 02/11/25 11:45 02/11/25 12:50 Hydromorphone 0.5 Mg/0.5 Ml Syringe IVP 0.5 mg Q2H PRN Administration Severe Pain (Level 7-10) Metronidazole 500 mg in 100 mls @ 100 mls/hr 02/09/25 17:22 02/12/25 10:25 Flagyl 500 Mg/100 Ml IV Infused Q8H RAMON Infusion Acetaminophen 1,000 mg in 100 mls @ 400 mls/hr 02/09/25 18:15 02/12/25 09:36 Acetaminophen IV Infused Q6HR PRN Infusion Moderate Pain (Level 4-6) Ciprofloxacin 400 mg in 200 mls @ 200 mls/hr 02/10/25 12:00 02/12/25 12:30 Cipro 400 Mg/200 Ml IV 200 mls/hr Q12H RAMON Administration Multivitamins 10 ml/ Zinc/ 2,011 mls @ 83 mls/hr 02/11/25 19:00 02/11/25 19:11 Copper/Manganese/Selenium 1 ml IV 83 mls/hr / Amino Acids/Electrolytes/ 1900 RAMON Administration Dextrose Protocol Fat Emulsion Intravenous 250 mls @ 21 mls/hr 02/11/25 19:00 02/12/25 07:00 Intralipid 20% IV Infused 1900 RAMON Infusion Sodium Phosphate 15 mmol/ 255 mls @ 41 mls/hr 02/12/25 11:20 02/12/25 12:33 Sodium Chloride IV 02/12/25 17:33 41 mls/hr ONCE ONE Administration Lactobacillus Rhamnosus 1 cap 02/10/25 17:00 02/12/25 09:24 Lactobacillus Rhamnosus Gg Capsule PO 1 cap DAILY RAMON Administration Levothyroxine Sodium 75 mcg 02/11/25 09:00 02/12/25 09:24 Levothyroxine 75 Mcg Tablet PO 75 mcg DAILY RAMON Administration Ondansetron HCl 4 mg 02/09/25 17:22 02/10/25 16:08 Ondansetron Odt 4 Mg Tablet TL 4 mg Q6HR PRN Administration Nausea / Vomiting Ondansetron HCl 4 mg 02/09/25 17:22 02/11/25 04:44 Ondansetron 4 Mg/2 Ml Vial IVP 4 mg Q6HR PRN Administration Nausea / Vomiting Prochlorperazine Edisylate 10 mg 02/09/25 17:22 02/10/25 19:45 Prochlorperazine 10 Mg/2 Ml Vial IVP 10 mg Q6HR PRN Administration Nausea / Vomiting Psyllium Hydrophilic Mucilloid 1 packet 02/11/25 09:00 02/12/25 09:25 Psyllium Packet PO 1 packet DAILY RAMON Administration Sodium Chloride 10 ml 02/09/25 17:22 02/10/25 17:15 Sodium Chloride Flush 0.9% 10 Ml Syringe IVP 10 ml PRN PRN Administration NEEDED PER PROVIDER ORDERS Sodium Chloride 10 ml 02/09/25 17:22 02/12/25 09:25 Sodium Chloride Flush 0.9% 10 Ml Syringe IVP 10 ml 0100,0900,1700 RAMON Administration Zinc Oxide 113 gm 02/09/25 18:53 Cod Liver Oil/Zinc Oxide 113 Gm Tube TOP PRN PRN Skin Care Objective Vital Signs/Intake & Output Reviewed Vital Signs: Yes Vital Signs: Vital Signs x48h Temp Pulse Resp BP Pulse Ox 02/12/25 09:00 36.8 C 68 17 102/60 94 Intake & Output: Intake & Output 02/09/25 02/10/25 02/11/25 02/12/25 23:59 23:59 23:59 23:59 Intake Total 2300 / 2300 3597 / 3597 4610 / 4610 750 / 750 Output Total Balance 2300 / 2300 3597 / 3597 4609 / 4609 750 / 750 Weight (kg) 51 kg Objective General Appearance: positive No acute distress and Alert Eyes Bilateral: positive Normal inspection, EOMI and No scleral icterus ENT: positive No signs of dehydration Neck: positive Nml inspection Respiratory: positive Chest non-tender, No respiratory distress and Breath sounds nml Cardiovascular: positive Regular rate & rhythm Abdomen: positive Nml bowel sounds, No distention and Tenderness ( mild diffuse); negative Guarding or Rebound Skin: positive Color nml, Warm and Dry Extremities: positive Pedal edema Neurologic/Psychiatric: positive Oriented x3 and Mood/affect nml Lab Results 02/12/25 07:13 02/12/25 07:13 Other Labs: Lab Results x24hrs 02/12/25 02/12/25 Range/Units 07:13 07:13 WBC 10.5 (4.8-10.8) x10^3/uL RBC 2.63 L (4.20-5.40) 10^6/uL Hgb 8.2 L (12.0-16.0) g/dL Hct 25.5 L (37.0-47.0) % MCV 97.0 (81.0-99.0) fL MCH 31.2 H (27.0-31.0) pg MCHC 32.2 (32.0-36.0) g/dL RDW 12.5 (12.0-15.0) % Plt Count 351 (130-450) 10^3/uL MPV 8.7 (7.9-10.8) fL Neut # (Auto) Not Reportable Lymph # (Auto) Not Reportable [place] # (Auto) Not Reportable Eos # (Auto) Not Reportable Baso # (Auto) Not Reportable Absolute Nucleated RBC Not Reportable Total Counted 100 Band Neuts % (Manual) 13 H (0 - 10) % Abnorm Lymph % (Manual) 0 % Metamyelocytes % 3 H ( - 0) % Nucleated RBC % Not Reportable Neutrophils # (Manual) 9.5 H (1.5-6.6) 10^3/uL Lymphocytes # (Manual) 0.5 L (1.5-3.5) 10^3/uL Monocytes # (Manual) 0.2 (0.0-1.0) 10^3/uL Eosinophils # (Manual) 0.0 (0-0.7) 10^3/uL Basophils # (Manual) 0.0 (0-0.1) 10^3/uL Differential Comment MANUAL DIFFERENTIAL Manual Slide Review Indicated WBC Morphology 1+ DOHLE BODIES 2+ TOXIC GRANULATION (NORMAL) Platelet Estimate NORMAL (130-450,000) (NORMAL) Platelet Morphology NORMAL APPEARANCE (NORMAL) RBC Morph Micro Appear NORMAL APPEARANCE (NORMAL) Sodium 134 L (135-145) mmol/L Potassium 3.5 (3.5-4.5) mmol/L Chloride 105 (101-111) mmol/L Carbon Dioxide 25 (21-32) mmol/L Anion Gap 4.0 L (6-13) BUN 12 (6-20) mg/dL Creatinine 0.4 L (0.6-1.3) mg/dL Estimated GFR (MDRD) 155 (>89) Glucose 165 H (74-104) mg/dL Calcium 8.3 L (8.5-10.3) mg/dL Phosphorus 1.7 L (2.5-5.0) mg/dL Magnesium 2.1 (1.7-2.3) mg/dL Total Bilirubin 0.3 (0.2-1.0) mg/dL AST 12 (10-42) IU/L ALT 32 (10-60) IU/L Alkaline Phosphatase 448 H (42-121) IU/L C-Reactive Protein 11.2 H (<0.5) mg/dL Total Protein 4.8 L (6.4-8.9) g/dL Albumin 2.3 L (3.2-5.5) g/dL Globulin 2.5 (2.1-4.2) g/dL Albumin/Globulin Ratio 0.9 L (1.0-2.2) Prealbumin 10 L (17-34) mg/dL Procalcitonin Immunoas 4.82 H* (<0.5) ng/mL Blood Type A POSITIVE Antibody Screen NEGATIVE ABX Reporting Has patient been on IV antibiotics over the past 48 hours?: Yes Assessment/Plan Problem List (1) Colitis: Impression: History of Crohn's disease. This was initially treated as a Crohn's flare in the outpatient setting with budesonide with no effect. Her WBC is improving, recheck CBC in the AM. 02/09/25 02/10/25 02/11/25 13:31 04:45 04:50 WBC 13.2 H 14.5 H 17.0 H 02/12/25 07:13 WBC 10.5 Recent antibiotic use immediately prior to symptom onset She was tested and found to be negative for C. difficile x 2 GI profile PCR is negative. 7 kg weight loss in the last [address] x2. 2[address] CT is CTA, no active bleeding. Both CTs show diffuse large bowel wall thickening without pericolonic fat stranding. CT does raise the possibility of C diff, but PCR has been nag x2. Her LFTs have improved with IVF- not checked today. LFTs trended today. Overall the pattern is unremarkable and 1 of improvement.With the exception of the alk phos 02/10/25 02/12/25 04:45 07:13 AST 33 12 ALT 66 H 32 Alkaline Phosphatase 357 H 448 H . I have escalated her antibiotics to ciprofloxacin and Flagyl given her penicillin allergy Previous provider spoke with Dr. Clayton, on-call for her GI Dr. He recommended colonoscopy. General surgery has consulted. considering colonos. General surgery would prefer to defer colonoscopy given risk of perforation in the setting of an acutely inflammed colon. I have obtained most recent GI office note and colonoscopy. I also have copies of the pathology report associated with her most recent colonoscopy. Morphine is not controlling her pain. I have changed from morphine to dilaudid for pain. She got one dose >24 hours ago, but she had an uncomfortable night. She does not want to ask for meds, I encouraged her to use them to help w rest. Discussed with Dr Pozo this afternoon. She is in agreement with trending markers as we have been doing, and continuation of steroids (2) Anemia: Impression: Hemoglobin is trending downward. Likely a combination of factors are causing this. She is getting a lot of fluids with her PPN. She is having small amounts of blood with her bowel movements and her state of malnutrition is also contributing to her anemia I am sure. Laboratory Tests 02/10/25 02/10/25 02/11/25 04:45 15:49 04:50 Hgb 11.1 L 10.8 L 9.8 L 02/12/25 07:13 Hgb 8.2 L This patient's diagnosis and treatment plan was discussed this AM with attending physician as a part of multi disciplinary rounding meeting. I have spent 55 minutes in the care of this patient today. This includes time [id number], review and ordering of diagnostic imaging and laboratory studies and consultation with other providers. Monitoring the patient's signs symptoms, evaluation of medication effectiveness and patient's response to treatment.
[2025-02-13 07:10] LABS: % IRON SATURATION 21.0 % (20-50); BUN - BLOOD UREA NITROGEN 15.0 mg/dL (6-20); CARBON DIOXIDE - CO2 27.0 mmol/L (21-32); CREATININE 0.4 mg/dL (0.6-1.3); GFR - MDRD 155.0 (>89)
[2025-02-13 07:53] LABS: HCT - HEMATOCRIT 23.6 % (37.0-47.0); HGB - HEMOGLOBIN 7.7 g/dL (12.0-16.0); MEAN PLATELET VOLUME 9.2 fL (7.9-10.8); PLT - PLATELET COUNT 311 10^3/uL (130-450); RED CELL DISTRIBUTION WIDTH 12.7 % (12.0-15.0)
[2025-02-13 08:01] LABS: SLIDE REVIEW? Indicated
[2025-02-13 08:02] LABS: ABNORMAL LYMPHS % (MANUAL) 0 %; BASOPHILS # (MANUAL) 0.0 10^3/uL (0-0.1)
[2025-02-13 08:22] LABS: BAND NEUTROPHILS % (MANUAL) 4 %; EOSINOPHILS # (MANUAL) 0.1 10^3/uL (0-0.7); LYMPHOCYTES # (MANUAL) 0.7 10^3/uL (1.5-3.5); LYMPHOCYTES % (MANUAL) 7 %; MONOCYTES # (MANUAL) 0.6 10^3/uL (0.0-1.0); NEUTROPHILS # (MANUAL) 8.3 10^3/uL (1.5-6.6)
[2025-02-13 08:23] LABS: PLATELET ESTIMATE, MANUAL NORMAL (130-450,000) (NORMAL); PLATELET MORPHOLOGY NORMAL APPEARANCE (NORMAL); RBC MORPHOLOGY (MULTIPLE) 1+ HYPOCHROMASIA (NORMAL); WBC MORPHOLOGY (MULTIPLE) NORMAL APPEARANCE (NORMAL)
[2025-02-13] MEDS: methylPREDNISolone SUCCINATE 40 MG/ML VIAL IVP SCH (08:43)
--- NOTE | 2025-02-13 10:18 | PROVIDER PROGRESS NOTE ---
Subjective Prog Note Date Prog Note Date: 02/13/25 Subjective Subjective: She has been able to eat some today. Half yogurt, half pudding, drinking clear ensure, etc. Still small amounts. I offered eggs and mashed potatoes to her, and she said she would try. first dose of Bentyl at 11am today, next dose is soon. She has been a bit more comfortable. Current Medications Current Medications Current Medications: Current Medications Generic Name Dose Route Start Last Admin Trade Name Glenq PRN Reason Stop Dose Admin Acetaminophen 650 mg 02/09/25 17:22 02/10/25 00:40 Acetaminophen 325 Mg Tablet PO 650 mg Q4HR PRN Administration Pain 1 to 4, or Fever Atorvastatin Calcium 10 mg 02/10/25 21:00 02/12/25 20:11 Atorvastatin 10 Mg Tablet PO 10 mg QPM RAMON Administration Dicyclomine HCl 10 mg 02/13/25 10:00 Dicyclomine 10 Mg Capsule PO QID RAMON Famotidine 20 mg 02/10/25 21:00 02/13/25 08:42 Famotidine 20 Mg/2 Ml Vial IVP 20 mg BID RAMON Administration Hydromorphone HCl 0.5 mg 02/11/25 11:45 02/13/25 05:06 Hydromorphone 0.5 Mg/0.5 Ml Syringe IVP 0.5 mg Q2H PRN Administration Severe Pain (Level 7-10) Metronidazole 500 mg in 100 mls @ 100 mls/hr 02/09/25 17:22 02/13/25 09:43 Flagyl 500 Mg/100 Ml IV Infused Q8H RAMON Infusion Acetaminophen 1,000 mg in 100 mls @ 400 mls/hr 02/09/25 18:15 02/13/25 09:03 Acetaminophen IV Infused Q6HR PRN Infusion Moderate Pain (Level 4-6) Ciprofloxacin 400 mg in 200 mls @ 200 mls/hr 02/10/25 12:00 02/13/25 00:47 Cipro 400 Mg/200 Ml IV Infused Q12H RAMON Infusion Multivitamins 10 ml/ Zinc/ 2,011 mls @ 83 mls/hr 02/11/25 19:00 02/12/25 19:39 Copper/Manganese/Selenium 1 ml IV 83 mls/hr / Amino Acids/Electrolytes/ 1900 RAMON Administration Dextrose Protocol Fat Emulsion Intravenous 250 mls @ 21 mls/hr 02/11/25 19:00 02/13/25 07:37 Intralipid 20% IV Infused 1900 RAMON Infusion Lactobacillus Rhamnosus 1 cap 02/10/25 17:00 02/13/25 08:43 Lactobacillus Rhamnosus Gg Capsule PO 1 cap DAILY RAMON Administration Levothyroxine Sodium 75 mcg 02/11/25 09:00 02/13/25 08:43 Levothyroxine 75 Mcg Tablet PO 75 mcg DAILY RAMON Administration Methylprednisolone 80 mg 02/13/25 09:00 02/13/25 08:43 Methylprednisolone Succinate 40 Mg/Ml Vial IVP 80 mg DAILY RAMON Administration Ondansetron HCl 4 mg 02/09/25 17:22 02/10/25 16:08 Ondansetron Odt 4 Mg Tablet TL 4 mg Q6HR PRN Administration Nausea / Vomiting Ondansetron HCl 4 mg 02/09/25 17:22 02/11/25 04:44 Ondansetron 4 Mg/2 Ml Vial IVP 4 mg Q6HR PRN Administration Nausea / Vomiting Prochlorperazine Edisylate 10 mg 02/09/25 17:22 02/12/25 20:16 Prochlorperazine 10 Mg/2 Ml Vial IVP 10 mg Q6HR PRN Administration Nausea / Vomiting Psyllium Hydrophilic Mucilloid 1 packet 02/11/25 09:00 02/13/25 08:43 Psyllium Packet PO 1 packet DAILY RAMON Administration Sodium Chloride 10 ml 02/09/25 17:22 02/12/25 20:12 Sodium Chloride Flush 0.9% 10 Ml Syringe IVP 10 ml PRN PRN Administration NEEDED PER PROVIDER ORDERS Sodium Chloride 10 ml 02/09/25 17:22 02/13/25 08:44 Sodium Chloride Flush 0.9% 10 Ml Syringe IVP 10 ml 0100,0900,1700 RAMON Administration Zinc Oxide 113 gm 02/09/25 18:53 Cod Liver Oil/Zinc Oxide 113 Gm Tube TOP PRN PRN Skin Care Objective Vital Signs/Intake & Output Reviewed Vital Signs: Yes Vital Signs: Vital Signs x48h Temp Pulse Resp BP Pulse Ox 02/12/25 09:00 36.8 C 68 17 102/60 94 Intake & Output: Intake & Output 02/10/25 02/11/25 02/12/25 02/13/25 23:59 23:59 23:59 23:59 Intake Total 3597 / 3597 4610 / 4610 3856 / 3856 1050 / 1050 Output Total Balance 3597 / 3597 4609 / 4609 3856 / 3856 1050 / 1050 Weight (kg) 60 kg 60.5 kg Objective General Appearance: positive No acute distress and Alert Eyes Bilateral: positive Normal inspection, EOMI and No scleral icterus ENT: positive No signs of dehydration Neck: positive Nml inspection and Trachea midline Respiratory: positive Chest non-tender and No respiratory distress Cardiovascular: positive Regular rate & rhythm Abdomen: positive No distention and Tenderness (Soft abdomen. Moderate diffuse tenderness with light palpation. ); negative Guarding or Rebound Skin: positive Color nml, Warm and Dry Extremities: positive Pedal edema Neurologic/Psychiatric: positive Oriented x3 and Mood/affect nml Lab Results 02/13/25 06:15 02/13/25 06:15 Other Labs: Lab Results x24hrs 02/13/25 Range/Units 06:15 WBC 9.6 (4.8-10.8) x10^3/uL RBC 2.40 L (4.20-5.40) 10^6/uL Hgb 7.7 L (12.0-16.0) g/dL Hct 23.6 L (37.0-47.0) % MCV 98.3 (81.0-99.0) fL MCH 32.1 H (27.0-31.0) pg MCHC 32.6 (32.0-36.0) g/dL RDW 12.7 (12.0-15.0) % Plt Count 311 (130-450) 10^3/uL MPV 9.2 (7.9-10.8) fL Neut # (Auto) Not Reportable Lymph # (Auto) Not Reportable [place] # (Auto) Not Reportable Eos # (Auto) Not Reportable Baso # (Auto) Not Reportable Absolute Nucleated RBC Not Reportable Total Counted 100 Band Neuts % (Manual) 4 (0 - 10) % Abnorm Lymph % (Manual) 0 % Nucleated RBC % Not Reportable Neutrophils # (Manual) 8.3 H (1.5-6.6) 10^3/uL Lymphocytes # (Manual) 0.7 L (1.5-3.5) 10^3/uL Monocytes # (Manual) 0.6 (0.0-1.0) 10^3/uL Eosinophils # (Manual) 0.1 (0-0.7) 10^3/uL Basophils # (Manual) 0.0 (0-0.1) 10^3/uL Differential Comment MANUAL DIFFERENTIAL Manual Slide Review Indicated WBC Morphology NORMAL APPEARANCE (NORMAL) Platelet Estimate NORMAL (130-450,000) (NORMAL) Platelet Morphology NORMAL APPEARANCE (NORMAL) RBC Morph Micro Appear 1+ HYPOCHROMASIA (NORMAL) Sodium 135 (135-145) mmol/L Potassium 3.3 L (3.5-4.5) mmol/L Chloride 104 (101-111) mmol/L Carbon Dioxide 27 (21-32) mmol/L Anion Gap 4.0 L (6-13) BUN 15 (6-20) mg/dL Creatinine 0.4 L (0.6-1.3) mg/dL Estimated GFR (MDRD) 155 (>89) Glucose 138 H (74-104) mg/dL Calcium 8.0 L (8.5-10.3) mg/dL Iron 23 L (50-212) ug/dL TIBC 112 L (250-450) ug/dL % Saturation 21 (20-50) % Transferrin 80 L (203-362) mg/dL Vitamin B12 3267 H (180-914) pg/mL Folate 10.0 (5.90 - >24.8) ng/mL Procalcitonin Immunoas 2.96 H* (<0.5) ng/mL ABX Reporting Has patient been on IV antibiotics over the past 48 hours?: Yes Assessment/Plan Problem List (1) Colitis: Impression: History of Crohn's disease. This was initially treated as a Crohn's flare in the outpatient setting with budesonide with no effect. Her WBC is improving, recheck CBC in the AM. 02/09/25 02/10/25 02/11/25 13:31 04:45 04:50 WBC 13.2 H 14.5 H 17.0 H 02/12/25 07:13 WBC 10.5 02/13/25 06:15 WBC 9.6 Recent antibiotic use immediately prior to symptom onset She was tested and found to be negative for C. difficile x 2 GI profile PCR is negative. 7 kg weight loss in the 2 weeks prior to admit. Has had CT x2. 2nd CT is CTA, no active bleeding. Both CTs show diffuse large bowel wall thickening without pericolonic fat stranding. CT does raise the possibility of C diff, but PCR has been neg x2. Her LFTs have improved with IVF- not checked today. the pattern is unremarkable and 1 of improvement. With the exception of the alk phos 02/10/25 02/12/25 04:45 07:13 AST 33 12 ALT 66 H 32 Alkaline Phosphatase 357 H 448 H . I have escalated her antibiotics to ciprofloxacin and Flagyl given her penicillin allergy Previous provider spoke with Dr. Clayton, on-call for her GI Dr. He recommended colonoscopy. General surgery has consulted. considering colonos. General surgery would prefer to defer colonoscopy given risk of perforation in the setting of an acutely inflammed colon. I have obtained most recent GI office note and colonoscopy. I also have copies of the pathology report associated with her most recent colonoscopy. These are indicative of mild disease. Morphine is not controlling her pain. I have changed from morphine to dilaudid for pain. one dose at bedtime last night and one at 5am this AM. I have her on solumedrol 60mg IV daily. I will not change to PO steroids until she is tolerating a diet. I will add a PPI as she will be on steroids for quite some time. (2) Anemia: Impression: Hemoglobin is trending downward. Likely a combination of factors are causing this. She is getting a lot of fluids with her PPN. She is having small amounts of blood with her bowel movements and her state of malnutrition is also contributing to her anemia I am sure. 02/10/25 02/10/25 02/11/25 04:45 15:49 04:50 Hgb 11.1 L 10.8 L 9.8 L 02/12/25 07:13 Hgb 8.2 L Laboratory Tests 02/13/25 06:15 Hgb 7.7 L Laboratory Tests 02/13/25 06:15 Iron 23 L TIBC 112 L % Saturation 21 Transferrin 80 L Vitamin B12 3267 H Folate 10.0 Iron levels are low, do not want to add po iron at this time due to side effects. (3) Severe protein-calorie malnutrition: Impression: She qualifies for severe protein calorie malnutrition. She has lost 7 kg in 2 weeks. Her energy intake is less then 50% of what is recommended. She has had weight loss that is consistent with severe protein calorie malnutrition, 12% weight loss in several weeks, 58 kg to 51 kg. 02/13/25 10:01 Severe Malnutrition Comment 12% wt loss in several weeks 58 kg to 51 kg diarrhea, decrease oral intake, dysgeusia Severe Protein Calorie Malnutrition Less than recommended Weight loss of greater This patient's diagnosis and treatment plan was discussed this AM with attending physician as a part of multi disciplinary rounding meeting. I have spent 45 minutes in the care of this patient today. This includes time [id number], review and ordering of diagnostic imaging and laboratory studies and consultation with other providers. Monitoring the patient's signs symptoms, evaluation of medication effectiveness and patient's response to treatment.
[2025-02-13] MEDS: DICYCLOMINE 10 MG CAPSULE PO SCH (11:05)
--- NOTE | 2025-02-13 11:13 | PROVIDER PROGRESS NOTE ---
Subjective Prog Note Date Prog Note Date: 02/13/25 Prog Note Time: 11:11 Subjective Pt reports feeling: No change Subjective: No acute events overnight. Debbie reports feeling overall the same this morning. However, her nausea and abdominal pain has improved. She e has been able to tolerate clear liquids and soft foods (pudding, ice cream, etc.) She denies emesis. She had 3 episodes of bloody diarrhea overnight. Current Medications Current Medications Current Medications: Current Medications Generic Name Dose Route Start Last Admin Trade Name Freq PRN Reason Stop Dose Admin Acetaminophen 650 mg 02/09/25 17:22 02/10/25 00:40 Acetaminophen 325 Mg Tablet PO 650 mg Q4HR PRN Administration Pain 1 to 4, or Fever Atorvastatin Calcium 10 mg 02/10/25 21:00 02/12/25 20:11 Atorvastatin 10 Mg Tablet PO 10 mg QPM RAMON Administration Dicyclomine HCl 10 mg 02/13/25 10:00 02/13/25 11:05 Dicyclomine 10 Mg Capsule PO 10 mg QID RAMON Administration Famotidine 20 mg 02/10/25 21:00 02/13/25 08:42 Famotidine 20 Mg/2 Ml Vial IVP 20 mg BID RAMON Administration Hydromorphone HCl 0.5 mg 02/11/25 11:45 02/13/25 05:06 Hydromorphone 0.5 Mg/0.5 Ml Syringe IVP 0.5 mg Q2H PRN Administration Severe Pain (Level 7-10) Metronidazole 500 mg in 100 mls @ 100 mls/hr 02/09/25 17:22 02/13/25 09:43 Flagyl 500 Mg/100 Ml IV Infused Q8H RAMON Infusion Acetaminophen 1,000 mg in 100 mls @ 400 mls/hr 02/09/25 18:15 02/13/25 09:03 Acetaminophen IV Infused Q6HR PRN Infusion Moderate Pain (Level 4-6) Ciprofloxacin 400 mg in 200 mls @ 200 mls/hr 02/10/25 12:00 02/13/25 00:47 Cipro 400 Mg/200 Ml IV Infused Q12H RAMON Infusion Multivitamins 10 ml/ Zinc/ 2,011 mls @ 83 mls/hr 02/11/25 19:00 02/12/25 19:39 Copper/Manganese/Selenium 1 ml IV 83 mls/hr / Amino Acids/Electrolytes/ 1900 RAMON Administration Dextrose Protocol Fat Emulsion Intravenous 250 mls @ 21 mls/hr 02/11/25 19:00 02/13/25 07:37 Intralipid 20% IV Infused 1900 RAMON Infusion Lactobacillus Rhamnosus 1 cap 02/10/25 17:00 02/13/25 08:43 Lactobacillus Rhamnosus Gg Capsule PO 1 cap DAILY RAMON Administration Levothyroxine Sodium 75 mcg 02/11/25 09:00 02/13/25 08:43 Levothyroxine 75 Mcg Tablet PO 75 mcg DAILY RAMON Administration Methylprednisolone 80 mg 02/13/25 09:00 02/13/25 08:43 Methylprednisolone Succinate 40 Mg/Ml Vial IVP 80 mg DAILY RAMON Administration Ondansetron HCl 4 mg 02/09/25 17:22 02/10/25 16:08 Ondansetron Odt 4 Mg Tablet TL 4 mg Q6HR PRN Administration Nausea / Vomiting Ondansetron HCl 4 mg 02/09/25 17:22 02/11/25 04:44 Ondansetron 4 Mg/2 Ml Vial IVP 4 mg Q6HR PRN Administration Nausea / Vomiting Prochlorperazine Edisylate 10 mg 02/09/25 17:22 02/12/25 20:16 Prochlorperazine 10 Mg/2 Ml Vial IVP 10 mg Q6HR PRN Administration Nausea / Vomiting Psyllium Hydrophilic Mucilloid 1 packet 02/11/25 09:00 02/13/25 08:43 Psyllium Packet PO 1 packet DAILY RAMON Administration Sodium Chloride 10 ml 02/09/25 17:22 02/12/25 20:12 Sodium Chloride Flush 0.9% 10 Ml Syringe IVP 10 ml PRN PRN Administration NEEDED PER PROVIDER ORDERS Sodium Chloride 10 ml 02/09/25 17:22 02/13/25 08:44 Sodium Chloride Flush 0.9% 10 Ml Syringe IVP 10 ml 0100,0900,1700 ARMON Administration Zinc Oxide 113 gm 02/09/25 18:53 Cod Liver Oil/Zinc Oxide 113 Gm Tube TOP PRN PRN Skin Care Objective Vital Signs/Intake & Output Reviewed Vital Signs: Yes Intake & Output: Intake & Output 02/10/25 02/11/25 02/12/25 02/13/25 23:59 23:59 23:59 23:59 Intake Total 359 / 3597 4610 / 4610 3856 / 3856 1050 / 1050 Output Total Balance 3597 / 3597 4609 / 4609 3856 / 3856 1050 / 1050 Weight (kg) 60 kg 60.5 kg Objective General Appearance: positive No acute distress and Alert Eyes Bilateral: positive Normal inspection, EOMI and No scleral icterus ENT: positive No signs of dehydration Neck: positive Nml inspection and Trachea midline Respiratory: positive Chest non-tender and No respiratory distress Cardiovascular: positive Regular rate & rhythm Abdomen: positive No distention and Tenderness (Soft abdomen. Moderate diffuse tenderness with light palpation. ); negative Guarding or Rebound Skin: positive Color nml, Warm and Dry Neurologic/Psychiatric: positive Oriented x3 and Mood/affect nml Lab Results 02/13/25 06:15 02/13/25 06:15 Other Labs: Lab Results x24hrs 02/13/25 Range/Units 06:15 WBC 9.6 (4.8-10.8) x10^3/uL RBC 2.40 L (4.20-5.40) 10^6/uL Hgb 7.7 L (12.0-16.0) g/dL Hct 23.6 L (37.0-47.0) % MCV 98.3 (81.0-99.0) fL MCH 32.1 H (27.0-31.0) pg MCHC 32.6 (32.0-36.0) g/dL RDW 12.7 (12.0-15.0) % Plt Count 311 (130-450) 10^3/uL MPV 9.2 (7.9-10.8) fL Neut # (Auto) Not Reportable Lymph # (Auto) Not Reportable [place] # (Auto) Not Reportable Eos # (Auto) Not Reportable Baso # (Auto) Not Reportable Absolute Nucleated RBC Not Reportable Total Counted 100 Band Neuts % (Manual) 4 (0 - 10) % Abnorm Lymph % (Manual) 0 % Nucleated RBC % Not Reportable Neutrophils # (Manual) 8.3 H (1.5-6.6) 10^3/uL Lymphocytes # (Manual) 0.7 L (1.5-3.5) 10^3/uL Monocytes # (Manual) 0.6 (0.0-1.0) 10^3/uL Eosinophils # (Manual) 0.1 (0-0.7) 10^3/uL Basophils # (Manual) 0.0 (0-0.1) 10^3/uL Differential Comment MANUAL DIFFERENTIAL Manual Slide Review Indicated WBC Morphology NORMAL APPEARANCE (NORMAL) Platelet Estimate NORMAL (130-450,000) (NORMAL) Platelet Morphology NORMAL APPEARANCE (NORMAL) RBC Morph Micro Appear 1+ HYPOCHROMASIA (NORMAL) Sodium 135 (135-145) mmol/L Potassium 3.3 L (3.5-4.5) mmol/L Chloride 104 (101-111) mmol/L Carbon Dioxide 27 (21-32) mmol/L Anion Gap 4.0 L (6-13) BUN 15 (6-20) mg/dL Creatinine 0.4 L (0.6-1.3) mg/dL Estimated GFR (MDRD) 155 (>89) Glucose 138 H (74-104) mg/dL Calcium 8.0 L (8.5-10.3) mg/dL Iron 23 L (50-212) ug/dL TIBC 112 L (250-450) ug/dL % Saturation 21 (20-50) % Transferrin 80 L (203-362) mg/dL Vitamin B12 3267 H (180-914) pg/mL Folate 10.0 (5.90 - >24.8) ng/mL Procalcitonin Immunoas 2.96 H* (<0.5) ng/mL ABX Reporting Has patient been on IV antibiotics over the past 48 hours?: Yes Assessment/Plan Problem List (1) Colitis: Impression: Assessment: 74yoF with hx of Crohn's disease and hemorrhoids on admission day #5 for diarrhea and pancolitis. Hemodynamically stable but downtrending Hgb in the setting of bloody diarrhea. It continues to be unclear if the etiology of her abdominal pain is from a bacterial infectious, a Crohn's flare, or both. 1) FEN - Daily BMP. No significant electrolyte disturbances today, continue to monitor and treat as needed. Discontinued NS and continuing with TPN per internal medicine team. Encourage full liquid diet as tolerated. 2) ID - Daily CBC. White count has decreased today from 17.0 >> 9.6 after starting steroids. Procalcitonin downtrending from 29.11 >> 2.96. Despite negative c diff x2 and negative GI panel, recommend continuing with Ciprofloxacin and Flagyl. 3) Crohn's - Given that she has been on antibiotics for a few days without improvement, recommend continuing with Methylprednisolone 80mg QD per internal medicine team. Can hold Mesalamine while on steroids. CRP downtrending from 25.0 > 11.2. Most recent GI clinic note and colonoscopy received, which showed some disease activity in 2021 but was managed with diet and medication. 4) Anemia - Hgb downtrending 12.3 >> 7.7. Hx of internal hemorrhoids and currently having bloody diarrhea. CTA 02/10 showed no active GI bleed. Rectal exam 02/12 with small clots in vault, no active bleeding. Type and screen today. Transfuse if Hgb below 7. Anticipate that as the colitis improves, the episodes of bloody diarrhea will resolve. Would not recommend performing a colonoscopy at this time due to severe inflammation increasing the risk of perforation during the procedure. Plan for outpatient colonoscopy in 2-3 months after colon has had time to heal. Discharge planning: Patient is not yet meeting milestones for safe discharge. We will continue to focus on pain management, increasing PO intake, and decreasing episodes of diarrhea.
[2025-02-14] MEDS: PANTOPRAZOLE 40 MG VIAL IVP SCH ×2 (06:07→14:52)
[2025-02-14 06:26] LABS: HCT - HEMATOCRIT 27.7 % (37.0-47.0); HGB - HEMOGLOBIN 9.1 g/dL (12.0-16.0); MEAN PLATELET VOLUME 8.8 fL (7.9-10.8); NRBC ABSOLUTE COUNT (AUTO) 0.02 x10^3/uL; NUCLEATED RED BLOOD CELLS AUTO 0.2 /100WBC; PLT - PLATELET COUNT 356 10^3/uL (130-450); RED CELL DISTRIBUTION WIDTH 12.6 % (12.0-15.0)
[2025-02-14 06:50] LABS: BUN - BLOOD UREA NITROGEN 16.0 mg/dL (6-20); CARBON DIOXIDE - CO2 27.0 mmol/L (21-32); CREATININE 0.4 mg/dL (0.6-1.3); GFR - MDRD 155.0 (>89); PHOSPHORUS 2.4 mg/dL (2.5-5.0)
[2025-02-14] MEDS: methylPREDNISolone SUCCINATE 40 MG/ML VIAL IVP SCH (09:18)
--- NOTE | 2025-02-14 13:56 | PROVIDER PROGRESS NOTE ---
Subjective Prog Note Date Prog Note Date: 02/14/25 Subjective Subjective: S Current Medications Current Medications Current Medications: Current Medications Generic Name Dose Route Start Last Admin Trade Name Freq PRN Reason Stop Dose Admin Acetaminophen 650 mg 02/09/25 17:22 02/14/25 06:07 Acetaminophen 325 Mg Tablet PO 650 mg Q4HR PRN Administration Pain 1 to 4, or Fever Atorvastatin Calcium 10 mg 02/10/25 21:00 02/13/25 20:16 Atorvastatin 10 Mg Tablet PO 10 mg QPM RAMON Administration Dicyclomine HCl 10 mg 02/13/25 10:00 02/14/25 12:28 Dicyclomine 10 Mg Capsule PO 10 mg QID RAMON Administration Famotidine 20 mg 02/10/25 21:00 02/14/25 09:18 Famotidine 20 Mg/2 Ml Vial IVP 20 mg BID RAMON Administration Hydromorphone HCl 0.5 mg 02/11/25 11:45 02/14/25 12:33 Hydromorphone 0.5 Mg/0.5 Ml Syringe IVP 0.5 mg Q2H PRN Administration Severe Pain (Level 7-10) Metronidazole 500 mg in 100 mls @ 100 mls/hr 02/09/25 17:22 02/14/25 10:30 Flagyl 500 Mg/100 Ml IV Infused Q8H RAMON Infusion Acetaminophen 1,000 mg in 100 mls @ 400 mls/hr 02/09/25 18:15 02/14/25 13:47 Acetaminophen IV 400 mls/hr Q6HR PRN Administration Moderate Pain (Level 4-6) Ciprofloxacin 400 mg in 200 mls @ 200 mls/hr 02/10/25 12:00 02/14/25 12:28 Cipro 400 Mg/200 Ml IV 200 mls/hr Q12H RAMON Administration Multivitamins 10 ml/ Zinc/ 2,011 mls @ 83 mls/hr 02/11/25 19:00 02/13/25 19:35 Copper/Manganese/Selenium 1 ml IV 83 mls/hr / Amino Acids/Electrolytes/ 1900 RAMON Administration Dextrose Protocol Fat Emulsion Intravenous 250 mls @ 21 mls/hr 02/11/25 19:00 02/14/25 08:00 Intralipid 20% IV Infused 1900 RAMON Infusion Lactobacillus Rhamnosus 1 cap 02/10/25 17:00 02/14/25 09:18 Lactobacillus Rhamnosus Gg Capsule PO 1 cap DAILY RAMON Administration Levothyroxine Sodium 75 mcg 02/11/25 09:00 02/14/25 06:07 Levothyroxine 75 Mcg Tablet PO 75 mcg DAILY RAMON Administration Methylprednisolone 60 mg 02/14/25 09:00 02/14/25 09:18 Methylprednisolone Succinate 40 Mg/Ml Vial IVP 60 mg DAILY RAMON Administration Ondansetron HCl 4 mg 02/09/25 17:22 02/10/25 16:08 Ondansetron Odt 4 Mg Tablet TL 4 mg Q6HR PRN Administration Nausea / Vomiting Ondansetron HCl 4 mg 02/09/25 17:22 02/11/25 04:44 Ondansetron 4 Mg/2 Ml Vial IVP 4 mg Q6HR PRN Administration Nausea / Vomiting Pantoprazole Sodium 40 mg 02/14/25 07:00 02/14/25 06:07 Pantoprazole 40 Mg Vial IVP 40 mg QDAC RAMON Administration Prochlorperazine Edisylate 10 mg 02/09/25 17:22 02/12/25 20:16 Prochlorperazine 10 Mg/2 Ml Vial IVP 10 mg Q6HR PRN Administration Nausea / Vomiting Psyllium Hydrophilic Mucilloid 1 packet 02/11/25 09:00 02/14/25 09:17 Psyllium Packet PO 1 packet DAILY RAMON Administration Sodium Chloride 10 ml 02/09/25 17:22 02/14/25 06:07 Sodium Chloride Flush 0.9% 10 Ml Syringe IVP 10 ml PRN PRN Administration NEEDED PER PROVIDER ORDERS Sodium Chloride 10 ml 02/09/25 17:22 02/14/25 09:19 Sodium Chloride Flush 0.9% 10 Ml Syringe IVP 10 ml 0100,0900,1700 RAMON Administration Zinc Oxide 113 gm 02/09/25 18:53 Cod Liver Oil/Zinc Oxide 113 Gm Tube TOP PRN PRN Skin Care Objective Vital Signs/Intake & Output Reviewed Vital Signs: Yes Vital Signs: Vital Signs x48h Temp Pulse Resp BP Pulse Ox 02/14/25 08:50 36.7 C 75 20 110/67 95 Intake & Output: Intake & Output 02/11/25 02/12/25 02/13/25 02/14/25 23:59 23:59 23:59 23:59 Intake Total 4610 / 4610 3856 / 3856 4086 / 4086 800 / 800 Output Total Balance 4609 / 4609 3856 / 3856 4086 / 4086 800 / 800 Weight (kg) 60 kg 60.5 kg Objective General Appearance: positive No acute distress and Alert Eyes Bilateral: positive Normal inspection, EOMI and No scleral icterus ENT: positive No signs of dehydration Neck: positive Nml inspection and Trachea midline Respiratory: positive Chest non-tender and No respiratory distress Cardiovascular: positive Regular rate & rhythm Abdomen: positive No distention and Tenderness (Soft abdomen. Moderate diffuse tenderness with light palpation. ); negative Guarding or Rebound Skin: positive Color nml, Warm and Dry Extremities: positive Pedal edema Neurologic/Psychiatric: positive Oriented x3 and Mood/affect nml Lab Results 02/14/25 06:11 02/14/25 06:11 Other Labs: Lab Results x24hrs 02/14/25 Range/Units 06:11 WBC 10.8 (4.8-10.8) x10^3/uL RBC 2.82 L (4.20-5.40) 10^6/uL Hgb 9.1 L (12.0-16.0) g/dL Hct 27.7 L (37.0-47.0) % MCV 98.2 (81.0-99.0) fL MCH 32.3 H (27.0-31.0) pg MCHC 32.9 (32.0-36.0) g/dL RDW 12.6 (12.0-15.0) % Plt Count 356 (130-450) 10^3/uL MPV 8.8 (7.9-10.8) fL Neut # (Auto) 8.9 H (1.5-6.6) 10^3/uL Lymph # (Auto) 0.7 L (1.5-3.5) 10^3/uL [place] # (Auto) 0.9 (0.0-1.0) 10^3/uL Eos # (Auto) 0.0 (0.0-0.7) 10^3/uL Baso # (Auto) 0.0 (0.0-0.1) 10^3/uL Absolute Nucleated RBC 0.02 x10^3/uL Nucleated RBC % 0.2 /100WBC Sodium 134 L (135-145) mmol/L Potassium 3.6 (3.5-4.5) mmol/L Chloride 101 (101-111) mmol/L Carbon Dioxide 27 (21-32) mmol/L Anion Gap 6.0 (6-13) BUN 16 (6-20) mg/dL Creatinine 0.4 L (0.6-1.3) mg/dL Estimated GFR (MDRD) 155 (>89) Glucose 114 H (74-104) mg/dL Calcium 8.6 (8.5-10.3) mg/dL Phosphorus 2.4 L (2.5-5.0) mg/dL Magnesium 2.3 (1.7-2.3) mg/dL ABX Reporting Has patient been on IV antibiotics over the past 48 hours?: Yes Assessment/Plan Problem List (1) Colitis: Impression: History of Crohn's disease. This was initially treated as a Crohn's flare in the outpatient setting with budesonide with no effect. Her WBC is improving, recheck CBC in the AM. Laboratory Tests 02/11/25 02/12/25 02/13/25 04:50 07:13 06:15 WBC 17.0 H 10.5 9.6 02/14/25 06:11 WBC 10.8 Recent antibiotic use immediately prior to symptom onset She was tested and found to be negative for C. difficile x 2 GI profile PCR is negative. 7 kg weight loss in the 2 weeks prior to admit. Has had CT x2. 2nd CT is CTA, no active bleeding. Both CTs show diffuse large bowel wall thickening without pericolonic fat stranding. CT does raise the possibility of C diff, but PCR has been neg x2. Her LFTs have improved with IVF- not checked today. the pattern is unremarkable and 1 of improvement. Alk phos not coming down, will repeat tomorrow AM. Procalcitonin not checked today, we will check tomorrow. I have escalated her antibiotics to ciprofloxacin and Flagyl given her penicillin allergy. I am continuing abx at the direction of general surgery. Likely dc to home off abx, or per the preference of general surgery. Previous provider spoke with Dr. Clayton, on-call for her GI Dr. He recommended colonoscopy. General surgery has consulted. considering colonos. General surgery would prefer to defer colonoscopy given risk of perforation in the setting of an acutely inflammed colon. I have obtained most recent GI office note and colonoscopy. I also have copies of the pathology report associated with her most recent colonoscopy. These are indicative of mild disease. I spoke with Dr. Lobato of [facility] this afternoon. He recommended that I continue Solu-Medrol 60 mg for an additional 1 to 2 days. Then switch the patient either over onto oral prednisone 40 mg a day or 2 Solu- Medrol 40 mg daily. He would recommend that I restart the Pentasa when I start oral prednisone. He recommends that I discharge the patient on prednisone 40 mg a day. I reviewed the fact that she does have follow-up appoint with Dr. Branham on March 05. He believes that she should continue on the 40 mg of prednisone daily until she sees [facility] on March 05. Morphine did not controlling her pain. I have changed from morphine to dilaudid for pain. She seems to be getting this more consistently, but with this, and the bentyl for pain control, she is increasing her oral intake. I have her on solumedrol 60mg IV daily. I will not change to PO steroids until she is tolerating a diet. I will add a PPI as she will be on steroids for quite some time. (2) Anemia: Impression: Hemoglobin was trending downward. It is now improving. She does have iron deficiency anemia. Likely a combination of factors are causing this. She is getting a lot of fluids with her PPN. BMs are improving, and are free from visible blood at this point. Her state of malnutrition is also contributing to her anemia I am sure. 02/10/25 02/11/25 02/12/25 15:49 04:50 07:13 Hgb 10.8 L 9.8 L 8.2 L 02/13/25 02/14/25 06:15 06:11 Hgb 7.7 L 9.1 L 02/13/25 06:15 Iron 23 L TIBC 112 L % Saturation 21 Transferrin 80 L Vitamin B12 3267 H Folate 10.0 Iron levels are low, do not want to add po iron at this time due to side effects. Iron infusion today. (3) Severe protein-calorie malnutrition: Impression: She qualifies for severe protein calorie malnutrition. She has lost 7 kg in 2 weeks. Her energy intake is less then 50% of what is recommended. She has had weight loss that is consistent with severe protein calorie malnutrition, 12% weight loss in several weeks, 58 kg to 51 kg. (4) Insomnia: Impression: Could be related to steroid use, although these are given early in the day. Could be anxiety mediated as well. I will add melatonin and vistaril PRN at night. This patient's diagnosis and treatment plan was discussed this AM with attending physician as a part of multi disciplinary rounding meeting. I have spent 52 minutes in the care of this patient today. This includes time [id number], review and ordering of diagnostic imaging and laboratory studies and consultation with other providers. Monitoring the patient's signs symptoms, evaluation of medication effectiveness and patient's response to treatment.
--- NOTE | 2025-02-14 14:02 | PROVIDER PROGRESS NOTE ---
Subjective Subjective Pt reports feeling: Improved Subjective: slow improvement. 2 bms today. still little appetite. Current Medications Current Medications Current Medications: Current Medications Generic Name Dose Route Start Last Admin Trade Name Freq PRN Reason Stop Dose Admin Acetaminophen 650 mg 02/09/25 17:22 02/14/25 06:07 Acetaminophen 325 Mg Tablet PO 650 mg Q4HR PRN Administration Pain 1 to 4, or Fever Atorvastatin Calcium 10 mg 02/10/25 21:00 02/13/25 20:16 Atorvastatin 10 Mg Tablet PO 10 mg QPM RAMON Administration Dicyclomine HCl 10 mg 02/13/25 10:00 02/14/25 12:28 Dicyclomine 10 Mg Capsule PO 10 mg QID RAMON Administration Famotidine 20 mg 02/10/25 21:00 02/14/25 09:18 Famotidine 20 Mg/2 Ml Vial IVP 20 mg BID RAMON Administration Hydromorphone HCl 0.5 mg 02/11/25 11:45 02/14/25 12:33 Hydromorphone 0.5 Mg/0.5 Ml Syringe IVP 0.5 mg Q2H PRN Administration Severe Pain (Level 7-10) Metronidazole 500 mg in 100 mls @ 100 mls/hr 02/09/25 17:22 02/14/25 10:30 Flagyl 500 Mg/100 Ml IV Infused Q8H RAMON Infusion Acetaminophen 1,000 mg in 100 mls @ 400 mls/hr 02/09/25 18:15 02/14/25 13:47 Acetaminophen IV 400 mls/hr Q6HR PRN Administration Moderate Pain (Level 4-6) Ciprofloxacin 400 mg in 200 mls @ 200 mls/hr 02/10/25 12:00 02/14/25 12:28 Cipro 400 Mg/200 Ml IV 200 mls/hr Q12H RAMON Administration Multivitamins 10 ml/ Zinc/ 2,011 mls @ 83 mls/hr 02/11/25 19:00 02/13/25 19:35 Copper/Manganese/Selenium 1 ml IV 83 mls/hr / Amino Acids/Electrolytes/ 1900 RAMON Administration Dextrose Protocol Fat Emulsion Intravenous 250 mls @ 21 mls/hr 02/11/25 19:00 02/14/25 08:00 Intralipid 20% IV Infused 1900 RAMON Infusion Lactobacillus Rhamnosus 1 cap 02/10/25 17:00 02/14/25 09:18 Lactobacillus Rhamnosus Gg Capsule PO 1 cap DAILY RAMON Administration Levothyroxine Sodium 75 mcg 02/11/25 09:00 02/14/25 06:07 Levothyroxine 75 Mcg Tablet PO 75 mcg DAILY RAMON Administration Methylprednisolone 60 mg 02/14/25 09:00 02/14/25 09:18 Methylprednisolone Succinate 40 Mg/Ml Vial IVP 60 mg DAILY RAMON Administration Ondansetron HCl 4 mg 02/09/25 17:22 02/10/25 16:08 Ondansetron Odt 4 Mg Tablet TL 4 mg Q6HR PRN Administration Nausea / Vomiting Ondansetron HCl 4 mg 02/09/25 17:22 02/11/25 04:44 Ondansetron 4 Mg/2 Ml Vial IVP 4 mg Q6HR PRN Administration Nausea / Vomiting Pantoprazole Sodium 40 mg 02/14/25 07:00 02/14/25 06:07 Pantoprazole 40 Mg Vial IVP 40 mg QDAC RAMON Administration Prochlorperazine Edisylate 10 mg 02/09/25 17:22 02/12/25 20:16 Prochlorperazine 10 Mg/2 Ml Vial IVP 10 mg Q6HR PRN Administration Nausea / Vomiting Psyllium Hydrophilic Mucilloid 1 packet 02/11/25 09:00 02/14/25 09:17 Psyllium Packet PO 1 packet DAILY RAMON Administration Sodium Chloride 10 ml 02/09/25 17:22 02/14/25 06:07 Sodium Chloride Flush 0.9% 10 Ml Syringe IVP 10 ml PRN PRN Administration NEEDED PER PROVIDER ORDERS Sodium Chloride 10 ml 02/09/25 17:22 02/14/25 09:19 Sodium Chloride Flush 0.9% 10 Ml Syringe IVP 10 ml 0100,0900,1700 RAMON Administration Zinc Oxide 113 gm 02/09/25 18:53 Cod Liver Oil/Zinc Oxide 113 Gm Tube TOP PRN PRN Skin Care Objective Vital Signs/Intake & Output Reviewed Vital Signs: Yes Vital Signs: Vital Signs x48h Temp Pulse Resp BP Pulse Ox 02/14/25 08:50 36.7 C 75 20 110/67 95 Intake & Output: Intake & Output 02/11/25 02/12/25 02/13/25 02/14/25 23:59 23:59 23:59 23:59 Intake Total 4610 / 4610 3856 / 3856 4086 / 4086 800 / 800 Output Total Balance 4609 / 4609 3856 / 3856 4086 / 4086 800 / 800 Weight (kg) 60 kg 60.5 kg Objective General Appearance: positive No acute distress and Alert Respiratory: positive No respiratory distress Abdomen: positive Other (no significant distension) Neurologic/Psychiatric: positive Oriented x3 Lab Results 02/14/25 06:11 02/14/25 06:11 Other Labs: Lab Results x24hrs 02/14/25 Range/Units 06:11 WBC 10.8 (4.8-10.8) x10^3/uL RBC 2.82 L (4.20-5.40) 10^6/uL Hgb 9.1 L (12.0-16.0) g/dL Hct 27.7 L (37.0-47.0) % MCV 98.2 (81.0-99.0) fL MCH 32.3 H (27.0-31.0) pg MCHC 32.9 (32.0-36.0) g/dL RDW 12.6 (12.0-15.0) % Plt Count 356 (130-450) 10^3/uL MPV 8.8 (7.9-10.8) fL Neut # (Auto) 8.9 H (1.5-6.6) 10^3/uL Lymph # (Auto) 0.7 L (1.5-3.5) 10^3/uL [place] # (Auto) 0.9 (0.0-1.0) 10^3/uL Eos # (Auto) 0.0 (0.0-0.7) 10^3/uL Baso # (Auto) 0.0 (0.0-0.1) 10^3/uL Absolute Nucleated RBC 0.02 x10^3/uL Nucleated RBC % 0.2 /100WBC Sodium 134 L (135-145) mmol/L Potassium 3.6 (3.5-4.5) mmol/L Chloride 101 (101-111) mmol/L Carbon Dioxide 27 (21-32) mmol/L Anion Gap 6.0 (6-13) BUN 16 (6-20) mg/dL Creatinine 0.4 L (0.6-1.3) mg/dL Estimated GFR (MDRD) 155 (>89) Glucose 114 H (74-104) mg/dL Calcium 8.6 (8.5-10.3) mg/dL Phosphorus 2.4 L (2.5-5.0) mg/dL Magnesium 2.3 (1.7-2.3) mg/dL Assessment/Plan Problem List (1) Colitis: Impression: hx crohns x 30 years. mild until 3 weeks ago when developed intestinal sxs after a course of abxs. she sees Dr [facility]. she is improving with current care (2) Anemia: (3) Severe protein-calorie malnutrition:
[2025-02-14] MEDS: FERRIC GLUCONATE 125 MG in SODIUM CHLORIDE 0.9% 100ML 100 ML IV ONE (17:04)
[2025-02-14] MEDS ORDERED: ACETAMINOPHEN 1,000 MG/100 ML 1,000 MG/100 ML BAG IV PRN (18:00)
[2025-02-14] MEDS: ACETAMINOPHEN 1,000 MG/100 ML 1,000 MG/100 ML BAG IV SCH (21:12)
[2025-02-14] MEDS: SODIUM CHLORIDE IV SCH (21:18)
[2025-02-14] MEDS: [UNRECOGNIZED DRUG - OTHER] IV SCH (21:18)
[2025-02-14] MEDS: PPN IV SCH (21:18)
[2025-02-14] MEDS: MELATONIN 3 MG TABLET PO SCH (21:18)
--- NOTE | 2025-02-15 09:37 | PROVIDER PROGRESS NOTE ---
Subjective Subjective Pt reports feeling: No change Subjective: feeling ok. able to tolerate small portions soft food. minimal discomfort. some red small bms earlier. more recent small brown stool. Current Medications Current Medications Current Medications: Current Medications Generic Name Dose Route Start Last Admin Trade Name Freq PRN Reason Stop Dose Admin Atorvastatin Calcium 10 mg 02/10/25 21:00 02/14/25 21:18 Atorvastatin 10 Mg Tablet PO 10 mg QPM RAMON Administration Dicyclomine HCl 10 mg 02/13/25 10:00 02/15/25 09:06 Dicyclomine 10 Mg Capsule PO 10 mg QID RAMON Administration Hydromorphone HCl 0.5 mg 02/11/25 11:45 02/14/25 12:33 Hydromorphone 0.5 Mg/0.5 Ml Syringe IVP 0.5 mg Q2H PRN Administration Severe Pain (Level 7-10) Hydroxyzine Pamoate 25 mg 02/14/25 14:06 02/14/25 22:27 Hydroxyzine Pamoate 25 Mg Capsule PO 25 mg QPM PRN Administration Insomnia Metronidazole 500 mg in 100 mls @ 100 mls/hr 02/09/25 17:22 02/15/25 09:07 Flagyl 500 Mg/100 Ml IV 100 mls/hr Q8H RAMON Administration Ciprofloxacin 400 mg in 200 mls @ 200 mls/hr 02/10/25 12:00 02/15/25 01:50 Cipro 400 Mg/200 Ml IV Infused Q12H RAMON Infusion Fat Emulsion Intravenous 250 mls @ 21 mls/hr 02/11/25 19:00 02/14/25 21:19 Intralipid 20% IV 21 mls/hr 1900 RAMON Administration Multivitamins 10 ml/ Zinc/ 2,011 mls @ 83 mls/hr 02/16/25 19:00 Copper/Manganese/Selenium 1 ml IV / Amino Acids/Electrolytes/ 1900 [facility] Dextrose Protocol Sodium Chloride 70 meq/ 2,011 mls @ 83 mls/hr 02/14/25 19:00 02/14/25 21:18 Potassium Chloride 16 meq/ IV 02/16/25 18:59 83 mls/hr Potassium Phosphate 30 mmol/ 1900 RAMON Administration Magnesium Sulfate 1.25 gm/ Protocol Calcium Gluconate 1,900 mg/ Multivitamins 10 ml/ Zinc/ Copper/Manganese/Selenium 1 ml / Amino Acids/Dextrose Acetaminophen 1,000 mg in 100 mls @ 400 mls/hr 02/14/25 18:00 02/15/25 07:20 Acetaminophen IV Infused Q6HR RAMON Infusion Lactobacillus Rhamnosus 1 cap 02/10/25 17:00 02/15/25 09:06 Lactobacillus Rhamnosus Gg Capsule PO 1 cap DAILY RAMON Administration Levothyroxine Sodium 75 mcg 02/11/25 09:00 02/15/25 07:02 Levothyroxine 75 Mcg Tablet PO 75 mcg DAILY RAMON Administration Melatonin 3 mg 02/14/25 21:00 02/14/25 21:18 Melatonin 3 Mg Tablet PO 3 mg QPM RAMON Administration Methylprednisolone 60 mg 02/14/25 09:00 02/15/25 09:05 Methylprednisolone Succinate 40 Mg/Ml Vial IVP 60 mg DAILY RAMON Administration Ondansetron HCl 4 mg 02/09/25 17:22 02/10/25 16:08 Ondansetron Odt 4 Mg Tablet TL 4 mg Q6HR PRN Administration Nausea / Vomiting Ondansetron HCl 4 mg 02/09/25 17:22 02/11/25 04:44 Ondansetron 4 Mg/2 Ml Vial IVP 4 mg Q6HR PRN Administration Nausea / Vomiting Pantoprazole Sodium 40 mg 02/14/25 07:00 02/15/25 07:02 Pantoprazole 40 Mg Vial IVP 40 mg QDAC RAMON Administration Prochlorperazine Edisylate 10 mg 02/09/25 17:22 02/12/25 20:16 Prochlorperazine 10 Mg/2 Ml Vial IVP 10 mg Q6HR PRN Administration Nausea / Vomiting Psyllium Hydrophilic Mucilloid 1 packet 02/11/25 09:00 02/15/25 09:06 Psyllium Packet PO 1 packet DAILY RAMON Administration Sodium Chloride 10 ml 02/09/25 17:22 02/14/25 06:07 Sodium Chloride Flush 0.9% 10 Ml Syringe IVP 10 ml PRN PRN Administration NEEDED PER PROVIDER ORDERS Sodium Chloride 10 ml 02/09/25 17:22 02/15/25 09:06 Sodium Chloride Flush 0.9% 10 Ml Syringe IVP 10 ml 0100,0900,1700 RAMON Administration Zinc Oxide 113 gm 02/09/25 18:53 Cod Liver Oil/Zinc Oxide 113 Gm Tube TOP PRN PRN Skin Care Objective Vital Signs/Intake & Output Intake & Output: Intake & Output 02/12/25 02/13/25 02/14/25 02/15/25 23:59 23:59 23:59 23:59 Intake Total 3856 / 3856 4086 / 4086 3971 / 3971 500 / 500 Balance 3856 / 3856 4086 / 4086 3971 / 3971 500 / 500 Weight (kg) 60 kg 60.5 kg 60 kg 61 kg Objective General Appearance: positive No acute distress and Alert Respiratory: positive No respiratory distress Abdomen: positive Other (minimal distension) Neurologic/Psychiatric: positive Oriented x3 Lab Results 02/14/25 06:11 02/14/25 06:11 Assessment/Plan Problem List (1) Colitis: Impression: hx crohns. few red small bms earlier. improved now. small brown bms recently and able to tolerate some soft food. care per gi. she states she has an appt with her [facility] in february. benign non surgical abdomen (2) Anemia: (3) Severe protein-calorie malnutrition: (4) Insomnia:
--- NOTE | 2025-02-15 12:35 | PROVIDER PROGRESS NOTE ---
Subjective Prog Note Date Prog Note Date: 02/15/25 Subjective Subjective: She reports that she is not sleeping. RNs are reporting that she gets up during the night to urinate 2-3 times, sometimes she is able to settle to sleep and sometimes not. She is having abdominal pain today, but she is also continuing to try to eat. Current Medications Current Medications Current Medications: Current Medications Generic Name Dose Route Start Last Admin Trade Name Freq PRN Reason Stop Dose Admin Atorvastatin Calcium 10 mg 02/10/25 21:00 02/14/25 21:18 Atorvastatin 10 Mg Tablet PO 10 mg QPM RAMON Administration Dicyclomine HCl 10 mg 02/13/25 10:00 02/15/25 09:06 Dicyclomine 10 Mg Capsule PO 10 mg QID RAMON Administration Hydromorphone HCl 0.5 mg 02/11/25 11:45 02/14/25 12:33 Hydromorphone 0.5 Mg/0.5 Ml Syringe IVP 0.5 mg Q2H PRN Administration Severe Pain (Level 7-10) Hydroxyzine Pamoate 25 mg 02/14/25 14:06 02/14/25 22:27 Hydroxyzine Pamoate 25 Mg Capsule PO 25 mg QPM PRN Administration Insomnia Metronidazole 500 mg in 100 mls @ 100 mls/hr 02/09/25 17:22 02/15/25 10:15 Flagyl 500 Mg/100 Ml IV Infused Q8H RAMON Infusion Ciprofloxacin 400 mg in 200 mls @ 200 mls/hr 02/10/25 12:00 02/15/25 12:13 Cipro 400 Mg/200 Ml IV 200 mls/hr Q12H RAMON Administration Acetaminophen 1,000 mg in 100 mls @ 400 mls/hr 02/14/25 18:00 02/15/25 07:20 Acetaminophen IV Infused Q6HR RAMON Infusion Lactobacillus Rhamnosus 1 cap 02/10/25 17:00 02/15/25 09:06 Lactobacillus Rhamnosus Gg Capsule PO 1 cap DAILY RAMON Administration Levothyroxine Sodium 75 mcg 02/11/25 09:00 02/15/25 07:02 Levothyroxine 75 Mcg Tablet PO 75 mcg DAILY RAMON Administration Melatonin 3 mg 02/14/25 21:00 02/14/25 21:18 Melatonin 3 Mg Tablet PO 3 mg QPM RAMON Administration Methylprednisolone 40 mg 02/15/25 14:00 Methylprednisolone Succinate 40 Mg/Ml Vial IVP TID RAMON Ondansetron HCl 4 mg 02/09/25 17:22 02/10/25 16:08 Ondansetron Odt 4 Mg Tablet TL 4 mg Q6HR PRN Administration Nausea / Vomiting Ondansetron HCl 4 mg 02/09/25 17:22 02/11/25 04:44 Ondansetron 4 Mg/2 Ml Vial IVP 4 mg Q6HR PRN Administration Nausea / Vomiting Pantoprazole Sodium 40 mg 02/14/25 07:00 02/15/25 07:02 Pantoprazole 40 Mg Vial IVP 40 mg QDAC RAMON Administration Prochlorperazine Edisylate 10 mg 02/09/25 17:22 02/12/25 20:16 Prochlorperazine 10 Mg/2 Ml Vial IVP 10 mg Q6HR PRN Administration Nausea / Vomiting Psyllium Hydrophilic Mucilloid 1 packet 02/11/25 09:00 02/15/25 09:06 Psyllium Packet PO 1 packet DAILY RAMON Administration Sodium Chloride 10 ml 02/09/25 17:22 02/14/25 06:07 Sodium Chloride Flush 0.9% 10 Ml Syringe IVP 10 ml PRN PRN Administration NEEDED PER PROVIDER ORDERS Sodium Chloride 10 ml 02/09/25 17:22 02/15/25 09:06 Sodium Chloride Flush 0.9% 10 Ml Syringe IVP 10 ml 0100,0900,1700 RAMON Administration Zinc Oxide 113 gm 02/09/25 18:53 Cod Liver Oil/Zinc Oxide 113 Gm Tube TOP PRN PRN Skin Care Objective Vital Signs/Intake & Output Reviewed Vital Signs: Yes Vital Signs: Vital Signs x48h Temp Pulse Resp BP Pulse Ox 02/14/25 08:50 36.7 C 75 20 110/67 95 Intake & Output: Intake & Output 02/12/25 02/13/25 02/14/25 02/15/25 23:59 23:59 23:59 23:59 Intake Total 3856 / 3856 4086 / 4086 3971 / 3971 2064 Balance 3856 / 3856 4086 / 4086 3971 / 3971 2064 Weight (kg) 60 kg 60.5 kg 60 kg 61 kg Objective General Appearance: positive No acute distress and Alert Eyes Bilateral: positive Normal inspection, EOMI and No scleral icterus ENT: positive No signs of dehydration Neck: positive Nml inspection and Trachea midline Respiratory: positive Chest non-tender and No respiratory distress Cardiovascular: positive Regular rate & rhythm Abdomen: positive No distention and Tenderness (Soft abdomen. Moderate diffuse tenderness with light palpation. ); negative Guarding or Rebound Skin: positive Color nml, Warm and Dry Extremities: positive Pedal edema Neurologic/Psychiatric: positive Oriented x3 and Mood/affect nml Lab Results 02/15/25 12:49 02/15/25 12:47 Other Labs: Lab Results x24hrs 02/14/25 Range/Units 06:11 WBC 10.8 (4.8-10.8) x10^3/uL RBC 2.82 L (4.20-5.40) 10^6/uL Hgb 9.1 L (12.0-16.0) g/dL Hct 27.7 L (37.0-47.0) % MCV 98.2 (81.0-99.0) fL MCH 32.3 H (27.0-31.0) pg MCHC 32.9 (32.0-36.0) g/dL RDW 12.6 (12.0-15.0) % Plt Count 356 (130-450) 10^3/uL MPV 8.8 (7.9-10.8) fL Neut # (Auto) 8.9 H (1.5-6.6) 10^3/uL Lymph # (Auto) 0.7 L (1.5-3.5) 10^3/uL [place] # (Auto) 0.9 (0.0-1.0) 10^3/uL Eos # (Auto) 0.0 (0.0-0.7) 10^3/uL Baso # (Auto) 0.0 (0.0-0.1) 10^3/uL Absolute Nucleated RBC 0.02 x10^3/uL Nucleated RBC % 0.2 /100WBC Sodium 134 L (135-145) mmol/L Potassium 3.6 (3.5-4.5) mmol/L Chloride 101 (101-111) mmol/L Carbon Dioxide 27 (21-32) mmol/L Anion Gap 6.0 (6-13) BUN 16 (6-20) mg/dL Creatinine 0.4 L (0.6-1.3) mg/dL Estimated GFR (MDRD) 155 (>89) Glucose 114 H (74-104) mg/dL Calcium 8.6 (8.5-10.3) mg/dL Phosphorus 2.4 L (2.5-5.0) mg/dL Magnesium 2.3 (1.7-2.3) mg/dL ABX Reporting Has patient been on IV antibiotics over the past 48 hours?: Yes Assessment/Plan Problem List (1) Colitis: Impression: History of Crohn's disease. This was initially treated as a Crohn's flare in the outpatient setting with budesonide with no effect. Her WBC is improving, today 9.6, recheck CBC in the AM. Laboratory Tests 02/11/25 02/12/25 02/13/25 04:50 07:13 06:15 WBC 17.0 H 10.5 9.6 02/14/25 06:11 WBC 10.8 Recent antibiotic use immediately prior to symptom onset She was tested and found to be negative for C. difficile x 2 GI profile PCR is negative. 7 kg weight loss in the 2 weeks prior to admit. Has had CT x2. 2nd CT is CTA, no active bleeding. Both CTs show diffuse large bowel wall thickening without pericolonic fat stranding. CT does raise the possibility of C diff, but PCR has been neg x2. I have escalated her antibiotics to ciprofloxacin and Flagyl given her penicillin allergy. I am continuing abx at the direction of general surgery. Likely dc to home off abx, or per the preference of general surgery. Previous provider spoke with Dr. Clayton, on-call for her GI Dr. He recommended colonoscopy. General surgery has consulted. considering colonos. General surgery would prefer to defer colonoscopy given risk of perforation in the setting of an acutely inflammed colon. I have obtained most recent GI office note and colonoscopy. I also have copies of the pathology report associated with her most recent colonoscopy. These are indicative of mild disease. I spoke with Dr. Lobato of [facility] on 02/14. He recommended that I continue Solu-Medrol 60 mg for an additional 1 to 2 days. Then switch the patient either over onto oral prednisone 40 mg a day or 2 Solu- Medrol 40 mg daily. He would recommend that I restart the Pentasa when I start oral prednisone. He recommends that I discharge the patient on prednisone 40 mg a day. I reviewed the fact that she does have follow-up appoint with Dr. Branham on March 05. He believes that she should continue on the 40 mg of prednisone daily until she sees Carrol on March 05. Unfortunately, with slight de escalation of the steroids, her abdominal cramping and frequent stools have returned, although no nikita blood in BMs. Morphine did not control her pain. I have changed from morphine to dilaudid for pain. She seems to be getting this more consistently, but with this, and the bentyl for pain control, she is increasing her oral intake. It has been very slow, and she is very literallly taking bites of food, although trying to do so frequently. Some flank pain overnight- UA was not remarkable. I had her on solumedrol 60mg IV daily, now increased to 40mg TID due to her increase in sx. I will not change to PO steroids until she is tolerating a diet. I have added a PPI as she will be on steroids for quite some time. I have stopped PPN secondary to risks of fungemia, and the fact that the patient is eating small amounts, would be best if she can meet her needs enterally. (2) Anemia: Impression: Hemoglobin was trending downward. It is now improving. She does have iron deficiency anemia. Likely a combination of factors are causing this. She is getting a lot of fluids with her PPN. BMs are improving, and are free from visible blood at this point. Her state of malnutrition is also contributing to her anemia I am sure. 02/10/25 02/11/25 02/12/25 15:49 04:50 07:13 Hgb 10.8 L 9.8 L 8.2 L 02/13/25 02/14/25 06:15 06:11 Hgb 7.7 L 9.1 L Hgb today is 9.6 02/13/25 06:15 Iron 23 L TIBC 112 L % Saturation 21 Transferrin 80 L Vitamin B12 3267 H Folate 10.0 Iron levels are low, do not want to add po iron at this time due to side effects. Iron infusion today. (3) Severe protein-calorie malnutrition: Impression: She qualifies for severe protein calorie malnutrition. She has lost 7 kg in 2 weeks. Her energy intake is less then 50% of what is recommended. She has had weight loss that is consistent with severe protein calorie malnutrition, 12% weight loss in several weeks, 58 kg to 51 kg. (4) Insomnia: Impression: Could be related to steroid use, although these are given early in the day. Could be anxiety mediated as well. I have added melatonin and vistaril PRN at night. This patient's diagnosis and treatment plan was discussed this AM with attending physician as a part of multi disciplinary rounding meeting. I have spent 38 minutes in the care of this patient today. This includes time [id number], review and ordering of diagnostic imaging and laboratory studies and consultation with other providers. Monitoring the patient's signs symptoms, evaluation of medication effectiveness and patient's response to treatment.
[2025-02-15 12:55] LABS: HCT - HEMATOCRIT 30.3 % (37.0-47.0); HGB - HEMOGLOBIN 9.6 g/dL (12.0-16.0); MEAN PLATELET VOLUME 9.4 fL (7.9-10.8); NRBC ABSOLUTE COUNT (AUTO) 0.02 x10^3/uL; NUCLEATED RED BLOOD CELLS AUTO 0.2 /100WBC; PLT - PLATELET COUNT 334 10^3/uL (130-450); RED CELL DISTRIBUTION WIDTH 12.7 % (12.0-15.0)
[2025-02-15 13:08] LABS: ALT ALANINE AMINOTRANSFERASE 29.0 IU/L (10-60); AST ASPARTATE AMINOTRANSFERASE 22.0 IU/L (10-42); BUN - BLOOD UREA NITROGEN 18.0 mg/dL (6-20); CARBON DIOXIDE - CO2 25.0 mmol/L (21-32); CREATININE 0.4 mg/dL (0.6-1.3); GFR - MDRD 155.0 (>89)
[2025-02-15] MEDS: methylPREDNISolone SUCCINATE 40 MG/ML VIAL IVP SCH (13:15)
[2025-02-15 14:45] LABS: GLUCOSE, URINE (UA) NEGATIVE (NEGATIVE); KETONES,URINE (UA) NEGATIVE (NEGATIVE); OCCULT BLOOD,URINE NEGATIVE (NEGATIVE); SQUAMOUS EPITHELIAL CELL,UR NONE SEEN (<= Few)
[2025-02-16 05:56] LABS: HCT - HEMATOCRIT 26.2 % (37.0-47.0); HGB - HEMOGLOBIN 8.5 g/dL (12.0-16.0); MEAN PLATELET VOLUME 9.3 fL (7.9-10.8); NRBC ABSOLUTE COUNT (AUTO) 0.00 x10^3/uL; NUCLEATED RED BLOOD CELLS AUTO 0.0 /100WBC; PLT - PLATELET COUNT 326 10^3/uL (130-450); RED CELL DISTRIBUTION WIDTH 12.7 % (12.0-15.0)
[2025-02-16 06:13] LABS: ALT ALANINE AMINOTRANSFERASE 22.0 IU/L (10-60); AST ASPARTATE AMINOTRANSFERASE 12.0 IU/L (10-42); BUN - BLOOD UREA NITROGEN 15.0 mg/dL (6-20); CARBON DIOXIDE - CO2 26.0 mmol/L (21-32); CREATININE 0.4 mg/dL (0.6-1.3); GFR - MDRD 155.0 (>89); PHOSPHORUS 3.5 mg/dL (2.5-5.0)
--- NOTE | 2025-02-16 07:12 | PROVIDER PROGRESS NOTE ---
Subjective General Admit Date: 02/10/25 Other Other Information/Narrative: BMx3 recorded in chart in last 24 hours, two brown, one with redness. Patient denies pain and states she is feeling much better this morning. She feels like she's got a little more of an appetite. Review of Systems Status of ROS: 10 or more systems reviewed and unremarkable except as noted in history and below Exam Exam Vital Signs: Vital Signs x48h Temp Pulse Resp BP Pulse Ox 02/15/25 23:35 98.8 F 71 16 128/78 95 Gen: NAD, alert and oriented CV: RRR Pulm: non labored, on RA Abd: soft, non tender, non distended, no r/g Ext: no c/c/e ABX Reporting Has patient been on IV antibiotics over the past 48 hours?: Yes Impression/Plan Problem List (1) Colitis: (2) Anemia: (3) Severe protein-calorie malnutrition: (4) Insomnia: Problem List Comment Problem List: 74 y/o F with h/o crohn's, now with exacerbation vs infectious colitis HD#8 - wbc stable at 11 today - abdomen benign on exam today, no need for surgical intervention at this time - symptoms improved with increased steroids over the weekend - if patient unable to be weaned from IV steroids, recommend transfer to higher level of care for biologics to treat crohn's exacerbation - patient's last scope in 09/2023, per our records. I recommend against acute colonoscopy at our facility at this time due to increased risk of perforation with acute infection. - general surgery will continue to follow.
[2025-02-16] MEDS: ACETAMINOPHEN 1,000 MG/100 ML 1,000 MG/100 ML BAG IV SCH (08:59)
--- NOTE | 2025-02-16 10:26 | PROVIDER PROGRESS NOTE ---
Subjective Prog Note Date Prog Note Date: 02/16/25 Subjective Subjective: She is eating small amounts of food. She is still having pain, but reasonably well relieved with meds. I am seeing her about 12 hours after her most recent dose of dilaudid. Current Medications Current Medications Current Medications: Current Medications Generic Name Dose Route Start Last Admin Trade Name Freq PRN Reason Stop Dose Admin Atorvastatin Calcium 10 mg 02/10/25 21:00 02/15/25 21:42 Atorvastatin 10 Mg Tablet PO 10 mg QPM RAMON Administration Dicyclomine HCl 10 mg 02/13/25 10:00 02/16/25 09:00 Dicyclomine 10 Mg Capsule PO 10 mg QID RAMON Administration Hydromorphone HCl 0.5 mg 02/11/25 11:45 02/16/25 04:29 Hydromorphone 0.5 Mg/0.5 Ml Syringe IVP 0.5 mg Q2H PRN Administration Severe Pain (Level 7-10) Hydroxyzine Pamoate 25 mg 02/14/25 14:06 02/15/25 21:43 Hydroxyzine Pamoate 25 Mg Capsule PO 25 mg QPM PRN Administration Insomnia Acetaminophen 1,000 mg in 100 mls @ 400 mls/hr 02/16/25 07:30 02/16/25 09:21 Acetaminophen IV Infused Q6H RAMON Infusion Ciprofloxacin 400 mg in 200 mls @ 200 mls/hr 02/16/25 13:00 Cipro 400 Mg/200 Ml IV Q12H RAMON Metronidazole 500 mg in 100 mls @ 100 mls/hr 02/16/25 11:00 Flagyl 500 Mg/100 Ml IV Q8H RAMON Lactobacillus Rhamnosus 1 cap 02/10/25 17:00 02/16/25 09:00 Lactobacillus Rhamnosus Gg Capsule PO 1 cap DAILY RAMON Administration Levothyroxine Sodium 75 mcg 02/11/25 09:00 02/16/25 09:00 Levothyroxine 75 Mcg Tablet PO 75 mcg DAILY RAMON Administration Melatonin 3 mg 02/14/25 21:00 02/15/25 21:43 Melatonin 3 Mg Tablet PO 3 mg QPM RAMON Administration Methylprednisolone 40 mg 02/15/25 14:00 02/16/25 05:52 Methylprednisolone Succinate 40 Mg/Ml Vial IVP 40 mg TID RAMON Administration Ondansetron HCl 4 mg 02/09/25 17:22 02/10/25 16:08 Ondansetron Odt 4 Mg Tablet TL 4 mg Q6HR PRN Administration Nausea / Vomiting Ondansetron HCl 4 mg 02/09/25 17:22 02/11/25 04:44 Ondansetron 4 Mg/2 Ml Vial IVP 4 mg Q6HR PRN Administration Nausea / Vomiting Pantoprazole Sodium 40 mg 02/14/25 07:00 02/15/25 07:02 Pantoprazole 40 Mg Vial IVP 40 mg QDAC RAMON Administration Prochlorperazine Edisylate 10 mg 02/09/25 17:22 02/12/25 20:16 Prochlorperazine 10 Mg/2 Ml Vial IVP 10 mg Q6HR PRN Administration Nausea / Vomiting Psyllium Hydrophilic Mucilloid 1 packet 02/11/25 09:00 02/16/25 08:59 Psyllium Packet PO 1 packet DAILY RAMON Administration Sodium Chloride 10 ml 02/09/25 17:22 02/16/25 05:53 Sodium Chloride Flush 0.9% 10 Ml Syringe IVP 10 ml PRN PRN Administration NEEDED PER PROVIDER ORDERS Sodium Chloride 10 ml 02/09/25 17:22 02/16/25 09:00 Sodium Chloride Flush 0.9% 10 Ml Syringe IVP 10 ml 0100,0900,1700 RAMON Administration Zinc Oxide 113 gm 02/09/25 18:53 Cod Liver Oil/Zinc Oxide 113 Gm Tube TOP PRN PRN Skin Care Objective Vital Signs/Intake & Output Reviewed Vital Signs: Yes Vital Signs: Vital Signs x48h Temp Pulse Resp BP Pulse Ox 02/16/25 09:25 36.7 C 77 20 117/67 92 Intake & Output: Intake & Output 02/13/25 02/14/25 02/15/25 02/16/25 23:59 23:59 23:59 23:59 Intake Total 4086 / 4086 3971 / 3971 3105 / 3105 770 / 770 Output Total 360 / 360 Balance 4086 / 4086 3971 / 3971 2745 / 2745 770 / 770 Weight (kg) 60.5 kg 60 kg 61 kg 60 kg Objective General Appearance: positive No acute distress and Alert Eyes Bilateral: positive Normal inspection, EOMI and No scleral icterus ENT: positive No signs of dehydration Neck: positive Nml inspection and Trachea midline Respiratory: positive Chest non-tender and No respiratory distress Cardiovascular: positive Regular rate & rhythm Abdomen: positive No distention and Tenderness (Soft abdomen. Moderate diffuse tenderness with light palpation. ); negative Guarding or Rebound Skin: positive Color nml, Warm and Dry Extremities: positive Pedal edema Neurologic/Psychiatric: positive Oriented x3 and Mood/affect nml Lab Results 02/16/25 05:29 02/16/25 05:29 Other Labs: Lab Results x24hrs 02/16/25 02/15/25 02/15/25 Range/Units 05:29 13:55 12:49 WBC 11.0 H 10.7 (4.8-10.8) x10^3/uL RBC 2.72 L 3.06 L (4.20-5.40) 10^6/uL Hgb 8.5 L 9.6 L (12.0-16.0) g/dL Hct 26.2 L 30.3 L (37.0-47.0) % MCV 96.3 99.0 (81.0-99.0) fL MCH 31.3 H 31.4 H (27.0-31.0) pg MCHC 32.4 31.7 L (32.0-36.0) g/dL RDW 12.7 12.7 (12.0-15.0) % Plt Count 326 334 (130-450) 10^3/uL MPV 9.3 9.4 (7.9-10.8) fL Neut # (Auto) 9.8 H 9.6 H (1.5-6.6) 10^3/uL Lymph # (Auto) 0.6 L 0.5 L (1.5-3.5) 10^3/uL [place] # (Auto) 0.5 0.3 (0.0-1.0) 10^3/uL Eos # (Auto) 0.0 0.0 (0.0-0.7) 10^3/uL Baso # (Auto) 0.0 0.0 (0.0-0.1) 10^3/uL Absolute Nucleated RBC 0.00 0.02 x10^3/uL Nucleated RBC % 0.0 0.2 /100WBC Sodium 135 (135-145) mmol/L Potassium 4.3 (3.5-4.5) mmol/L Chloride 104 (101-111) mmol/L Carbon Dioxide 26 (21-32) mmol/L Anion Gap 5.0 L (6-13) BUN 15 (6-20) mg/dL Creatinine 0.4 L (0.6-1.3) mg/dL Estimated GFR (MDRD) 155 (>89) Glucose 99 (74-104) mg/dL Calcium 8.1 L (8.5-10.3) mg/dL Phosphorus 3.5 (2.5-5.0) mg/dL Magnesium 2.2 (1.7-2.3) mg/dL Total Bilirubin 0.3 (0.2-1.0) mg/dL AST 12 (10-42) IU/L ALT 22 (10-60) IU/L Alkaline Phosphatase 323 H (42-121) IU/L Total Protein 4.4 L (6.4-8.9) g/dL Albumin 2.5 L (3.2-5.5) g/dL Globulin 1.9 L (2.1-4.2) g/dL Albumin/Globulin Ratio 1.3 (1.0-2.2) Prealbumin 36 H (17-34) mg/dL Urine Color DARK YELLOW Urine Clarity CLEAR (CLEAR) Urine pH 6.5 (5.0-7.5) PH Ur Specific [place] 1.025 (1.002-1.030) Urine Protein NEGATIVE (NEGATIVE) mg/dL Urine Glucose (UA) NEGATIVE (NEGATIVE) mg/dL Urine Ketones NEGATIVE (NEGATIVE) mg/dL Urine Occult Blood NEGATIVE (NEGATIVE) Urine Nitrite NEGATIVE (NEGATIVE) Urine Bilirubin NEGATIVE (NEGATIVE) Urine Urobilinogen 0.2 (NORMAL) (NORMAL) E.U./dL Ur Leukocyte Esterase NEGATIVE (NEGATIVE) Urine RBC 0-5 (0-5) /HPF Urine WBC 0-3 (0-5) /HPF Ur Squamous Epith Cells NONE SEEN (<= Few) Urine Bacteria Rare (None Seen) /HPF Urine Culture Comments NOT INDICATED 02/15/25 Range/Units 12:47 WBC (4.8-10.8) x10^3/uL RBC (4.20-5.40) 10^6/uL Hgb (12.0-16.0) g/dL Hct (37.0-47.0) % MCV (81.0-99.0) fL MCH (27.0-31.0) pg MCHC (32.0-36.0) g/dL RDW (12.0-15.0) % Plt Count (130-450) 10^3/uL MPV (7.9-10.8) fL Neut # (Auto) (1.5-6.6) 10^3/uL Lymph # (Auto) (1.5-3.5) 10^3/uL [place] # (Auto) (0.0-1.0) 10^3/uL Eos # (Auto) (0.0-0.7) 10^3/uL Baso # (Auto) (0.0-0.1) 10^3/uL Absolute Nucleated RBC x10^3/uL Nucleated RBC % /100WBC Sodium 133 L (135-145) mmol/L Potassium 3.9 (3.5-4.5) mmol/L Chloride 101 (101-111) mmol/L Carbon Dioxide 25 (21-32) mmol/L Anion Gap 7.0 (6-13) BUN 18 (6-20) mg/dL Creatinine 0.4 L (0.6-1.3) mg/dL Estimated GFR (MDRD) 155 (>89) Glucose 142 H (74-104) mg/dL Calcium 8.4 L (8.5-10.3) mg/dL Phosphorus (2.5-5.0) mg/dL Magnesium (1.7-2.3) mg/dL Total Bilirubin 0.3 (0.2-1.0) mg/dL AST 22 (10-42) IU/L ALT 29 (10-60) IU/L Alkaline Phosphatase 441 H (42-121) IU/L Total Protein 5.3 L (6.4-8.9) g/dL Albumin 2.8 L (3.2-5.5) g/dL Globulin 2.5 (2.1-4.2) g/dL Albumin/Globulin Ratio 1.1 (1.0-2.2) Prealbumin (17-34) mg/dL Urine Color Urine Clarity (CLEAR) Urine pH (5.0-7.5) PH Ur Specific [place] (1.002-1.030) Urine Protein (NEGATIVE) mg/dL Urine Glucose (UA) (NEGATIVE) mg/dL Urine Ketones (NEGATIVE) mg/dL Urine Occult Blood (NEGATIVE) Urine Nitrite (NEGATIVE) Urine Bilirubin (NEGATIVE) Urine Urobilinogen (NORMAL) E.U./dL Ur Leukocyte Esterase (NEGATIVE) Urine RBC (0-5) /HPF Urine WBC (0-5) /HPF Ur Squamous Epith Cells (<= Few) Urine Bacteria (None Seen) /HPF Urine Culture Comments ABX Reporting Has patient been on IV antibiotics over the past 48 hours?: Yes Assessment/Plan Problem List (1) Colitis: Impression: History of Crohn's disease. This was initially treated as a Crohn's flare in the outpatient setting with budesonide with no effect.Laboratory Tests 02/09/25 02/10/25 02/11/25 13:31 04:45 04:50 WBC 13.2 H 14.5 H 17.0 H 02/12/25 02/13/25 02/14/25 07:13 06:15 06:11 WBC 10.5 9.6 10.8 02/15/25 02/16/25 12:49 05:29 WBC 10.7 11.0 H Recent antibiotic use immediately prior to symptom onset She was tested and found to be negative for C. difficile x 2 GI profile PCR is negative. 7 kg weight loss in the 2 weeks prior to admit. Has had CT x2. 2nd CT is CTA, no active bleeding. Both CTs show diffuse large bowel wall thickening without pericolonic fat stranding. CT does raise the possibility of C diff, but PCR has been neg x2. She is currently day 7 of cipro/flagyl. I have stopped these meds. Previous provider spoke with Dr. Clayton, on-call for her GI Dr. He recommended colonoscopy. General surgery has consulted. considering colonos. General surgery would prefer to defer colonoscopy given risk of perforation in the setting of an acutely inflammed colon. I have obtained most recent GI office note and colonoscopy. I also have copies of the pathology report associated with her most recent colonoscopy. These are indicative of mild disease. I spoke with Dr. Lobato of [facility] on 02/14. He recommended that I continue Solu-Medrol 60 mg for an additional 1 to 2 days. Then switch the patient either over onto oral prednisone 40 mg a day or 2 Solu- Medrol 40 mg daily. He would recommend that I restart the Pentasa when I start oral prednisone. He recommends that I discharge the patient on prednisone 40 mg a day. I reviewed the fact that she does have follow-up appoint with Dr. Branham on March 05. He believes that she should continue on the 40 mg of prednisone daily until she sees Carrol on March 05. I had her on solumedrol 60mg IV daily, now increased to 40mg TID due to her increase in sx. I will not change to PO steroids until she is tolerating a diet. I have added a PPI as she will be on steroids for quite some time. She is on day 2 of increased steroids. I will try to de escalate again tomorrow. Morphine did not control her pain. I have changed from morphine to dilaudid for pain. She seems to be getting this more consistently, but with this, and the bentyl for pain control, she is increasing her oral intake. It has been very slow, and she is very literallly taking bites of food, although trying to do so frequently. I have stopped PPN secondary to risks of fungemia, and the fact that the patient is eating small amounts, would be best if she can meet her needs enterally. She is taking about 25% of meals currently- and I think that is increasing incrementally every day (2) Anemia: Impression: Hemoglobin was trending downward. It is now improving. She does have iron deficiency anemia. BMs are improving, and had been free from visible blood at this point, now intermittent blood. . Her state of malnutrition is also contributing to her anemia I am sure. 02/13/25 02/14/25 02/15/25 06:15 06:11 12:49 Hgb 7.7 L 9.1 L 9.6 L 02/16/25 05:29 Hgb 8.5 L 02/13/25 06:15 Iron 23 L TIBC 112 L % Saturation 21 Transferrin 80 L Vitamin B12 3267 H Folate 10.0 Iron levels are low, do not want to add po iron at this time due to side effects. (3) Severe protein-calorie malnutrition: Impression: She qualifies for severe protein calorie malnutrition. She has lost 7 kg in 2 weeks. Her energy intake is less then 50% of what is recommended. She has had weight loss that is consistent with severe protein calorie malnutrition, 12% weight loss in several weeks, 58 kg to 51 kg. (4) Insomnia: Impression: Could be related to steroid use, although these are given early in the day. Could be anxiety mediated as well. I have added melatonin and vistaril PRN at night. She seems to be doing better. This patient's diagnosis and treatment plan was discussed this AM with attending physician as a part of multi disciplinary rounding meeting. I have spent 40 minutes in the care of this patient today. This includes time [id number], review and ordering of diagnostic imaging and laboratory studies and consultation with other providers. Monitoring the patient's signs symptoms, evaluation of medication effectiveness and patient's response to treatment.
[2025-02-16] MEDS: CIPROFLOXACIN 400 MG/200 ML 400 MG/200 ML BAG IV SCH (12:39)
[2025-02-16] MEDS ORDERED: PPN (CLINIMIX E 4.25/5) 2,000 ML with MULTIVITAMIN 10 ML, TRACE ELEMENTS 1 ML IV SCH (19:00)
[2025-02-17 06:24] LABS: HCT - HEMATOCRIT 29.7 % (37.0-47.0); HGB - HEMOGLOBIN 9.4 g/dL (12.0-16.0); MEAN PLATELET VOLUME 9.3 fL (7.9-10.8); NRBC ABSOLUTE COUNT (AUTO) 0.00 x10^3/uL; NUCLEATED RED BLOOD CELLS AUTO 0.0 /100WBC; PLT - PLATELET COUNT 449 10^3/uL (130-450); RED CELL DISTRIBUTION WIDTH 12.9 % (12.0-15.0)
[2025-02-17 06:41] LABS: BUN - BLOOD UREA NITROGEN 16.0 mg/dL (6-20); CARBON DIOXIDE - CO2 27.0 mmol/L (21-32); CREATININE 0.5 mg/dL (0.6-1.3); GFR - MDRD 120.0 (>89)
[2025-02-17] MEDS: COD LIVER OIL/ZINC OXIDE 113 GM TUBE TOP PRN (09:25)
--- NOTE | 2025-02-17 10:32 | PROVIDER PROGRESS NOTE ---
Subjective Prog Note Date Prog Note Date: 02/17/25 Prog Note Time: 10:29 Subjective Pt reports feeling: Improved Subjective: No acute events overnight. Debbie reports continuing improvement. Her abdominal pain is very manageable and she has been increasing her solid PO intake. She had 2 episodes of non- bloody diarrhea overnight, she has not seen blood in her stool for 3 days. She endorses being nervous about going home and managing her diet and pain at home. Debbie, Dr. Cordova, and myself had a long discussion about the next steps her treatment. We encouraged her to have an open mind regarding new treatment options and to see either her current GI doctor or a new GI doctor in the coming weeks. She is hesitant about using new medications and travelling to [place] to seek care. We reminded her that she has an appointment already scheduled with that office on March 05. Current Medications Current Medications Current Medications: Current Medications Generic Name Dose Route Start Last Admin Trade Name Freq PRN Reason Stop Dose Admin Atorvastatin Calcium 10 mg 02/10/25 21:00 02/16/25 21:29 Atorvastatin 10 Mg Tablet PO 10 mg QPM RAMON Administration Dicyclomine HCl 10 mg 02/13/25 10:00 02/17/25 08:37 Dicyclomine 10 Mg Capsule PO 10 mg QID RAMON Administration Hydromorphone HCl 0.5 mg 02/11/25 11:45 02/17/25 06:12 Hydromorphone 0.5 Mg/0.5 Ml Syringe IVP 0.5 mg Q2H PRN Administration Severe Pain (Level 7-10) Hydroxyzine Pamoate 25 mg 02/14/25 14:06 02/15/25 21:43 Hydroxyzine Pamoate 25 Mg Capsule PO 25 mg QPM PRN Administration Insomnia Acetaminophen 1,000 mg in 100 mls @ 400 mls/hr 02/16/25 07:30 02/17/25 09:26 Acetaminophen IV Infused Q6H RAMON Infusion Lactobacillus Rhamnosus 1 cap 02/10/25 17:00 02/17/25 08:37 Lactobacillus Rhamnosus Gg Capsule PO 1 cap DAILY RAMON Administration Levothyroxine Sodium 75 mcg 02/11/25 09:00 02/17/25 08:37 Levothyroxine 75 Mcg Tablet PO 75 mcg DAILY RAMON Administration Melatonin 3 mg 02/14/25 21:00 02/16/25 21:29 Melatonin 3 Mg Tablet PO 3 mg QPM RAMON Administration Methylprednisolone 40 mg 02/18/25 09:00 Methylprednisolone Succinate 40 Mg/Ml Vial IVP DAILY RAMON Ondansetron HCl 4 mg 02/09/25 17:22 02/10/25 16:08 Ondansetron Odt 4 Mg Tablet TL 4 mg Q6HR PRN Administration Nausea / Vomiting Ondansetron HCl 4 mg 02/09/25 17:22 02/11/25 04:44 Ondansetron 4 Mg/2 Ml Vial IVP 4 mg Q6HR PRN Administration Nausea / Vomiting Pantoprazole Sodium 40 mg 02/14/25 07:00 02/17/25 08:36 Pantoprazole 40 Mg Vial IVP 40 mg QDAC RAMON Administration Prochlorperazine Edisylate 10 mg 02/09/25 17:22 02/12/25 20:16 Prochlorperazine 10 Mg/2 Ml Vial IVP 10 mg Q6HR PRN Administration Nausea / Vomiting Psyllium Hydrophilic Mucilloid 1 packet 02/11/25 09:00 02/17/25 08:36 Psyllium Packet PO 1 packet DAILY RAMON Administration Sodium Chloride 10 ml 02/09/25 17:22 02/16/25 21:29 Sodium Chloride Flush 0.9% 10 Ml Syringe IVP 10 ml PRN PRN Administration NEEDED PER PROVIDER ORDERS Sodium Chloride 10 ml 02/09/25 17:22 02/17/25 08:37 Sodium Chloride Flush 0.9% 10 Ml Syringe IVP 10 ml 0100,0900,1700 RAMON Administration Zinc Oxide 113 gm 02/09/25 18:53 Cod Liver Oil/Zinc Oxide 113 Gm Tube TOP PRN PRN Skin Care Zinc Oxide 2 gm 02/16/25 15:04 02/17/25 09:25 Cod Liver Oil/Zinc Oxide 113 Gm Tube TOP 1 applic PRN PRN Administration Skin breakdown Objective Vital Signs/Intake & Output Reviewed Vital Signs: Yes Intake & Output: Intake & Output 02/14/25 02/15/25 02/16/25 02/17/25 23:59 23:59 23:59 23:59 Intake Total 3971 / 3971 3105 / 3105 1590 / 1590 300 / 300 Output Total 360 / 360 Balance 3971 / 3971 2745 / 2745 1590 / 1590 300 / 300 Weight (kg) 60 kg 61 kg 60 kg 58.5 kg Objective General Appearance: positive No acute distress and Alert ENT: positive No signs of dehydration Neck: positive Nml inspection and Trachea midline Respiratory: positive Chest non-tender and No respiratory distress Cardiovascular: positive Regular rate & rhythm Abdomen: positive No distention and Tenderness (Diffuse minimal tenderness to light palpation. ); negative Guarding or Rebound Skin: positive Color nml, Warm and Dry Extremities: positive No pedal edema Neurologic/Psychiatric: positive Oriented x3 Lab Results 02/17/25 06:11 02/17/25 06:11 Other Labs: Lab Results x24hrs 02/17/25 Range/Units 06:11 WBC 11.9 H (4.8-10.8) x10^3/uL RBC 3.05 L (4.20-5.40) 10^6/uL Hgb 9.4 L (12.0-16.0) g/dL Hct 29.7 L (37.0-47.0) % MCV 97.4 (81.0-99.0) fL MCH 30.8 (27.0-31.0) pg MCHC 31.6 L (32.0-36.0) g/dL RDW 12.9 (12.0-15.0) % Plt Count 449 (130-450) 10^3/uL MPV 9.3 (7.9-10.8) fL Neut # (Auto) 10.4 H (1.5-6.6) 10^3/uL Lymph # (Auto) 0.7 L (1.5-3.5) 10^3/uL [place] # (Auto) 0.6 (0.0-1.0) 10^3/uL Eos # (Auto) 0.0 (0.0-0.7) 10^3/uL Baso # (Auto) 0.0 (0.0-0.1) 10^3/uL Absolute Nucleated RBC 0.00 x10^3/uL Nucleated RBC % 0.0 /100WBC Sodium 135 (135-145) mmol/L Potassium 4.1 (3.5-4.5) mmol/L Chloride 103 (101-111) mmol/L Carbon Dioxide 27 (21-32) mmol/L Anion Gap 5.0 L (6-13) BUN 16 (6-20) mg/dL Creatinine 0.5 L (0.6-1.3) mg/dL Estimated GFR (MDRD) 120 (>89) Glucose 105 H (74-104) mg/dL Calcium 8.7 (8.5-10.3) mg/dL ABX Reporting Has patient been on IV antibiotics over the past 48 hours?: Yes Assessment/Plan Problem List (1) Colitis: Impression: Assessment: 74yoF with hx of Crohn's disease and hemorrhoids on admission day #9 for diarrhea and pancolitis. It continues to be unclear if the etiology of her abdominal pain is from a bacterial infection, a Crohn's flare, or both. 1) Crohn's - Steroid taper per internal medicine team. Benign abdominal exam and no surgical intervention recommended at this time. Plan for outpatient colonoscopy in 2-3 months. Recommend she see a GI doctor soon after discharge to discuss her medical options. 2) Anemia - Hgb uptrending and bloody diarrhea has resolved over the last 3 days. No surgical intervention recommended at this time. Surgery will peripherally follow patient and will be available if new concerns arise. Refer to treatment plan per internal medicine team. We discussed considering new treatment options for her Crohns disease and that this should be a focus of her discussion with her GI physician. She seems intermittently resistant (vacillating back and forth) to this suggestion but as I was clear in explaining this was to prevent a re-admission to the hospital with a repeat exacerbation of her Crohns. There is no surgically correctable disease currently and I will be available if there are further questions.
--- NOTE | 2025-02-17 23:35 | PROVIDER PROGRESS NOTE ---
Subjective Prog Note Date Prog Note Date: 02/17/25 Subjective Subjective: lots of belly pain this afternoon, but she is slowing increasing oral intake. I was here twice this afternoon as I initially missed her and he wanted me to come back. Current Medications Current Medications Current Medications: Current Medications Generic Name Dose Route Start Last Admin Trade Name Freq PRN Reason Stop Dose Admin Atorvastatin Calcium 10 mg 02/10/25 21:00 02/17/25 22:07 Atorvastatin 10 Mg Tablet PO 10 mg QPM RAMON Administration Dicyclomine HCl 10 mg 02/13/25 10:00 02/17/25 22:07 Dicyclomine 10 Mg Capsule PO 10 mg QID RAMON Administration Hydromorphone HCl 0.5 mg 02/11/25 11:45 02/17/25 18:10 Hydromorphone 0.5 Mg/0.5 Ml Syringe IVP 0.5 mg Q2H PRN Administration Severe Pain (Level 7-10) Hydroxyzine Pamoate 25 mg 02/14/25 14:06 02/15/25 21:43 Hydroxyzine Pamoate 25 Mg Capsule PO 25 mg QPM PRN Administration Insomnia Acetaminophen 1,000 mg in 100 mls @ 400 mls/hr 02/16/25 07:30 02/17/25 20:14 Acetaminophen IV Infused Q6H RAMON Infusion Lactobacillus Rhamnosus 1 cap 02/10/25 17:00 02/17/25 08:37 Lactobacillus Rhamnosus Gg Capsule PO 1 cap DAILY RAMON Administration Levothyroxine Sodium 75 mcg 02/11/25 09:00 02/17/25 08:37 Levothyroxine 75 Mcg Tablet PO 75 mcg DAILY RAMON Administration Melatonin 3 mg 02/14/25 21:00 02/17/25 22:07 Melatonin 3 Mg Tablet PO 3 mg QPM RAMON Administration Methylprednisolone 40 mg 02/18/25 09:00 Methylprednisolone Succinate 40 Mg/Ml Vial IVP DAILY RAMON Ondansetron HCl 4 mg 02/09/25 17:22 02/10/25 16:08 Ondansetron Odt 4 Mg Tablet TL 4 mg Q6HR PRN Administration Nausea / Vomiting Ondansetron HCl 4 mg 02/09/25 17:22 02/11/25 04:44 Ondansetron 4 Mg/2 Ml Vial IVP 4 mg Q6HR PRN Administration Nausea / Vomiting Pantoprazole Sodium 40 mg 02/14/25 07:00 02/17/25 08:36 Pantoprazole 40 Mg Vial IVP 40 mg QDAC RAMON Administration Prochlorperazine Edisylate 10 mg 02/09/25 17:22 02/12/25 20:16 Prochlorperazine 10 Mg/2 Ml Vial IVP 10 mg Q6HR PRN Administration Nausea / Vomiting Psyllium Hydrophilic Mucilloid 1 packet 02/11/25 09:00 02/17/25 08:36 Psyllium Packet PO 1 packet DAILY RAMON Administration Sodium Chloride 10 ml 02/09/25 17:22 02/16/25 21:29 Sodium Chloride Flush 0.9% 10 Ml Syringe IVP 10 ml PRN PRN Administration NEEDED PER PROVIDER ORDERS Sodium Chloride 10 ml 02/09/25 17:22 02/17/25 17:38 Sodium Chloride Flush 0.9% 10 Ml Syringe IVP 10 ml 0100,0900,1700 RAMON Administration Zinc Oxide 113 gm 02/09/25 18:53 Cod Liver Oil/Zinc Oxide 113 Gm Tube TOP PRN PRN Skin Care Zinc Oxide 2 gm 02/16/25 15:04 02/17/25 09:25 Cod Liver Oil/Zinc Oxide 113 Gm Tube TOP 1 applic PRN PRN Administration Skin breakdown Objective Vital Signs/Intake & Output Reviewed Vital Signs: Yes Vital Signs: Vital Signs x48h Temp Pulse Resp BP Pulse Ox 02/17/25 15:50 37.0 C 89 16 99/64 94 Intake & Output: Intake & Output 02/14/25 02/15/25 02/16/25 02/17/25 23:59 23:59 23:59 23:59 Intake Total 3971 / 3971 3105 / 3105 1590 / 1590 650 / 650 Output Total 360 / 360 Balance 3971 / 3971 2745 / 2745 1590 / 1590 650 / 650 Weight (kg) 60 kg 61 kg 60 kg 58.5 kg Objective General Appearance: positive No acute distress and Alert Eyes Bilateral: positive Normal inspection, EOMI and No scleral icterus ENT: positive No signs of dehydration Neck: positive Nml inspection and Trachea midline Respiratory: positive Chest non-tender and No respiratory distress Cardiovascular: positive Regular rate & rhythm Abdomen: positive No distention and Tenderness (Diffuse minimal tenderness to light palpation. ); negative Guarding or Rebound Skin: positive Color nml, Warm and Dry Extremities: positive No pedal edema Neurologic/Psychiatric: positive Oriented x3 Lab Results 02/17/25 06:11 02/17/25 06:11 Other Labs: Lab Results x24hrs 02/17/25 Range/Units 06:11 WBC 11.9 H (4.8-10.8) x10^3/uL RBC 3.05 L (4.20-5.40) 10^6/uL Hgb 9.4 L (12.0-16.0) g/dL Hct 29.7 L (37.0-47.0) % MCV 97.4 (81.0-99.0) fL MCH 30.8 (27.0-31.0) pg MCHC 31.6 L (32.0-36.0) g/dL RDW 12.9 (12.0-15.0) % Plt Count 449 (130-450) 10^3/uL MPV 9.3 (7.9-10.8) fL Neut # (Auto) 10.4 H (1.5-6.6) 10^3/uL Lymph # (Auto) 0.7 L (1.5-3.5) 10^3/uL [place] # (Auto) 0.6 (0.0-1.0) 10^3/uL Eos # (Auto) 0.0 (0.0-0.7) 10^3/uL Baso # (Auto) 0.0 (0.0-0.1) 10^3/uL Absolute Nucleated RBC 0.00 x10^3/uL Nucleated RBC % 0.0 /100WBC Sodium 135 (135-145) mmol/L Potassium 4.1 (3.5-4.5) mmol/L Chloride 103 (101-111) mmol/L Carbon Dioxide 27 (21-32) mmol/L Anion Gap 5.0 L (6-13) BUN 16 (6-20) mg/dL Creatinine 0.5 L (0.6-1.3) mg/dL Estimated GFR (MDRD) 120 (>89) Glucose 105 H (74-104) mg/dL Calcium 8.7 (8.5-10.3) mg/dL ABX Reporting Has patient been on IV antibiotics over the past 48 hours?: Yes Assessment/Plan Problem List (1) Colitis: Impression: History of Crohn's disease. This was initially treated as a Crohn's flare in the outpatient setting with budesonide with no effect. Laboratory Tests 02/09/25 02/10/25 02/11/25 13:31 04:45 04:50 WBC 13.2 H 14.5 H 17.0 H 02/12/25 02/13/25 02/14/25 07:13 06:15 06:11 WBC 10.5 9.6 10.8 02/15/25 02/16/25 12:49 05:29 WBC 10.7 11.0 H WBC 11.9 today Recent antibiotic use immediately prior to symptom onset She was tested and found to be negative for C. difficile x 2 GI profile PCR is negative. 7 kg weight loss in the 2 weeks prior to admit. Has had CT x2. 2nd CT is CTA, no active bleeding. Both CTs show diffuse large bowel wall thickening without pericolonic fat stranding. CT does raise the possibility of C diff, but PCR has been neg x2. She completed 7 day of abx. Previous provider spoke with Dr. Clayton, on-call for her GI Dr. He recommended colonoscopy. General surgery has consulted. considering colonos. General surgery would prefer to defer colonoscopy given risk of perforation in the setting of an acutely inflammed colon. I have obtained most recent GI office note and colonoscopy. I also have copies of the pathology report associated with her most recent colonoscopy. These are indicative of mild disease. I spoke with Dr. Lobato of [facility] on 02/14. He recommended that I continue Solu-Medrol 60 mg for an additional 1 to 2 days. Then switch the patient either over onto oral prednisone 40 mg a day or 2 Solu- Medrol 40 mg daily. He would recommend that I restart the Pentasa when I start oral prednisone. He recommends that I discharge the patient on prednisone 40 mg a day. I reviewed the fact that she does have follow-up appoint with Dr. Branham on March 05. He believes that she should continue on the 40 mg of prednisone daily until she sees [facility] on March 05. I had her on solumedrol 60mg IV daily, then increased to 40mg TID due to her increase in sx. I will not change to PO steroids until she is tolerating a diet. I have added a PPI as she will be on steroids for quite some time. today I have de escalated steroids to 40mg daily Morphine did not control her pain. I have changed from morphine to dilaudid for pain. She seems to be getting this more consistently, but with this, and the bentyl for pain control, she is increasing her oral intake. It has been very slow, and she is very literallly taking bites of food, although trying to do so frequently. I have stopped PPN secondary to risks of fungemia, and the fact that the patient is eating small amounts, would be best if she can meet her needs enterally. She is very slowly increasing po intake. (2) Anemia: Impression: Hemoglobin was trending downward. It is now improving. 9.4 today She does have iron deficiency anemia. BMs are improving, and had been free from visible blood at this point, now intermittent blood. . Her state of malnutrition is also contributing to her anemia I am sure. 02/13/25 02/14/25 02/15/25 06:15 06:11 12:49 Hgb 7.7 L 9.1 L 9.6 L 02/16/25 05:29 Hgb 8.5 L 02/13/25 06:15 Iron 23 L TIBC 112 L % Saturation 21 Transferrin 80 L Vitamin B12 3267 H Folate 10.0 Iron levels are low, do not want to add po iron at this time due to side effects. (3) Severe protein-calorie malnutrition: Impression: She qualifies for severe protein calorie malnutrition. She has lost 7 kg in 2 weeks. Her energy intake is less then 50% of what is recommended. She has had weight loss that is consistent with severe protein calorie malnutrition, 12% weight loss in several weeks, 58 kg to 51 kg. (4) Insomnia: Impression: Could be related to steroid use, although these are given early in the day. Could be anxiety mediated as well. I have added melatonin and vistaril PRN at night. She seems to be doing better. This patient's diagnosis and treatment plan was discussed this AM with attending physician as a part of multi disciplinary rounding meeting. I have spent 42 minutes in the care of this patient today. This includes time [id number], review and ordering of diagnostic imaging and laboratory studies and consultation with other providers. Monitoring the patient's signs symptoms, evaluation of medication effectiveness and patient's response to treatment.
[2025-02-18 06:37] LABS: HCT - HEMATOCRIT 29.3 % (37.0-47.0); HGB - HEMOGLOBIN 9.1 g/dL (12.0-16.0); MEAN PLATELET VOLUME 9.4 fL (7.9-10.8); NRBC ABSOLUTE COUNT (AUTO) 0.00 x10^3/uL; NUCLEATED RED BLOOD CELLS AUTO 0.0 /100WBC; PLT - PLATELET COUNT 483 10^3/uL (130-450); RED CELL DISTRIBUTION WIDTH 13.6 % (12.0-15.0)
[2025-02-18 07:00] LABS: BUN - BLOOD UREA NITROGEN 15.0 mg/dL (6-20); CARBON DIOXIDE - CO2 28.0 mmol/L (21-32); CREATININE 0.6 mg/dL (0.6-1.3); GFR - MDRD 97.0 (>89)
[2025-02-18] MEDS: methylPREDNISolone SUCCINATE 40 MG/ML VIAL IVP SCH (08:15)
--- NOTE | 2025-02-18 14:08 | Discharge Summary ---
Discharge Summary Admit Date: 02/09/25 Discharge Date: 02/18/25 Discharging Provider: [facility] Primary Care Provider: Chinyere oLng Code Status: Attempt Resuscitation DIAGNOSES Admission Diagnoses: Colitis Discharge Diagnoses with Status of Each Condition: Colitisfinished course of antibiotics, discharging on steroids Anemiaresolving Severe protein calorie malnutritionnow tolerating p.o. Insomniadischarging with melatonin and hydroxyzine HPI History of Present Illness: 74-year-old female with PMH chron's disease who presents with diarrhea for the past several weeks. She reports this started when she started taking antibiotics for facial cellulitis. She finished a course of clindamycin. She initially presented to the walk-in clinic and then to her PCP. This was initially thought to be drug-induced diarrhea, then it was managed as a Crohn's flare with steroids. She has continued to have violent diarrhea, and started develop nausea. She has been having progressive nausea, to the point where yesterday she can only tolerate water and today she cannot take any oral intake. reports that she has lost 15 pounds over the past 2-3 weeks. She reports some abdominal pain in varying points in her abdomen feeling like her stomach is twisting and in knots. She denies fever, chills, hematemesis, melena, blood in stool. She had a CT abdomen/pelvis performed in the outpatient setting on 02/03 which showed diffuse bowel wall thickening throughout the colon suspicious for pancolitis. In the ER, lab work revealed some elevation in her LFTs with AST of 49, ALT 91, alkaline phosphatase 383. Procalcitonin positive, lipase negative. Patient is clearly unable to keep up oral intake and is very dehydrated. She was given some IV fluids in the ER as well as antiemetics. She is still too nauseous to take anything orally. Hospitalist was contacted for observation HOSPITAL COURSE Hospital Course: She was admitted in the hospital and again found to be negative for C. difficile. She was started on ciprofloxacin and Flagyl to cover for bacterial colitis and completed a 7-day course of this. Her GI group was contacted several times during the course of her admission, and they recommended high-dose steroid. She is being discharged on 40 mg prednisone daily and is already scheduled for follow-up with GI. She is able to tolerate small amounts of food, and ambulate independently ALLERGIES Allergies Allergy/AdvReac Type Severity Reaction Status Date / Time erythromycin base Allergy Severe skin Verified 02/09/25 13:22 reaction nickel Allergy Severe Unknown Verified 02/09/25 13:22 Penicillins Allergy Severe Hives Verified 02/09/25 13:22 Sulfa (Sulfonamide Allergy Severe Hives Verified 02/09/25 13:22 Antibiotics) MEDICATIONS Ambulatory Orders Medication Instructions Recorded Confirmed cholecalciferol (vitamin D3) 50 2,000 unit PO DAILY 02/10/25 mcg (2,000 unit) capsule (Vitamin D3) levothyroxine 75 mcg tablet 75 mcg PO DAILY 04/14/13 0 02/10/25 (Synthroid) calcium carbonate 600 mg PO BID 07/08/2402/10 ondansetron 8 mg disintegrating 8 mg PO TID PRN nausea and 02/09/25 02/10/25 tablet vomiting #30 tabs mesalamine 250 mg capsule,extended 1,000 mg PO QID 02/10/25 release (Pentasa) multivitamin with minerals-folic 1 tab PO DAILY 02/10/25 acid 80 mcg chewable tablet (Centrum MultiGummies Women) simvastatin 20 mg tablet 20 mg PO QPM 02/10/25 Lactobacillus rhamnosus GG 10 1 cap PO DAILY 30 days # 30 caps 02/18/25 billion cell capsule (Culturelle) acetaminophen 500 mg capsule 1,000 mg (2 x 500 mg) PO TID #90 02/18/25 caps dicyclomine 10 mg capsule 10 mg PO QID 30 days #120 ca ps 02/18/25 folic acid 400 mcg tablet 0.4 mg PO DAILY #30 tabs hydroxyzine pamoate 25 mg capsule 25 mg PO QPM PRN Ins omnia 30 days 02/18/25 #30 caps melatonin 3 mg tablet 3 mg PO QPM 30 days #30 tabs 02/18/25 ondansetron 4 mg disintegrating 4 mg PO Q8H PRN nausea and 02/18/25 tablet vomiting #30 tabs oxycodone 5 mg tablet 5 mg PO Q4H PRN pain #20 tab s 02/18/25 prednisone 20 mg tablet 40 mg (2 x 20 mg) PO DAILY # 90 tabs 02/18/25 psyllium husk (with sugar) 3.4 1 tsp PO DAILY 30 days #30 ea 02/18/25 gram oral powder packet (Metamucil (with sugar)) thiamine HCl (vitamin B1) 100 mg 100 mg PO DAILY 30 da ys #30 caps 02/18/25 capsule triamcinolone acetonide 0.1 % 1 applic topical TID #80 grams 02/18/25 topical cream PHYSICAL EXAM AT DISCHARGE Vital Signs: Vital Signs x48h Temp Pulse Resp BP Pulse Ox 02/18/25 14:45 36.6 C 77 16 101/63 95 General Appearance: positive No acute distress and Alert Eyes Bilateral: positive Normal inspection Neck: positive Nml inspection Respiratory: positive Chest non-tender Cardiovascular: positive Regular rate & rhythm and No murmur Peripheral Pulses: positive 2+ Abdomen: negative Non-tender Skin: positive Color nml Extremities: positive Non-tender Neurologic/Psychiatric: positive Oriented x3 LABS 02/18/25 06:20 02/18/25 06:20 FOLLOW UP Follow Up: With GI, PCP TIME SPENT Time Spent in Discharge (Minutes): 35 Discharge Plan Discharge Patient Disposition: Home, Self Care Condition: Stable Prescriptions: New melatonin 3 mg Tablet 3 mg PO QPM 30 Days Qty: 30 0RF Culturelle 10 billion cell Capsule 1 cap PO DAILY 30 Days Qty: 30 0RF dicyclomine 10 mg Capsule 10 mg PO QID 30 Days Qty: 120 0RF hydroxyzine pamoate 25 mg Capsule 25 mg PO QPM PRN (Reason: Insomnia) 30 Days Qty: 30 0RF Metamucil (with sugar) 3.4 gram Powder In Packet 1 tsp PO DAILY 30 Days Qty: 30 0RF ondansetron 4 mg tablet,disintegrating 4 mg PO Q8H PRN (Reason: nausea and vomiting) Qty: 30 0RF acetaminophen 500 mg capsule 1,000 mg PO TID Qty: 90 0RF prednisone 20 mg tablet 40 mg PO DAILY Qty: 90 0RF oxycodone 5 mg tablet 5 mg PO Q4H PRN (Reason: pain) Qty: 20 0RF folic acid 400 mcg tablet 0.4 mg PO DAILY Qty: 30 2RF thiamine HCl (vitamin B1) 100 mg capsule 100 mg PO DAILY 30 Days Qty: 30 0RF triamcinolone acetonide 0.1 % cream 1 applic topical TID Qty: 80 0RF Continued ondansetron 8 mg tablet,disintegrating 8 mg PO TID PRN (Reason: nausea and vomiting) Qty: 30 2RF levothyroxine [Synthroid] 75 MCG tablet 75 mcg PO DAILY cholecalciferol (vitamin D3) [Vitamin D3] 2,000 UNIT capsule 2,000 unit PO DAILY Pentasa 250 mg capsule, extended release 1,000 mg PO QID Rx Instructions: Take 4 capsules Four times a day simvastatin 20 mg tablet 20 mg PO QPM Rx Instructions: TAKE 1 TABLET EVERY NIGHT Centrum MultiGummies Women 80 mcg tablet,chewable 1 tab PO DAILY calcium carbonate 600 mg calcium (1,500 mg) tablet 600 mg PO BID Rx Instructions: 1 by mouth once a day Discontinued budesonide 9 mg tablet,delayed and ext.release 9 mg PO QAM Qty: 30 2RF Rx Instructions: for Crohns flare Activity Restrictions: Activity as Tolerated Diet: Regular Health Concerns: You came into the hospital with nausea, vomiting, diarrhea for several weeks. You were initially treated for bacterial colitis with antibiotics. You completed a course of antibiotics for this, but were still having symptoms. We reached out to your GI specialist, who recommended high-dose steroids. You are started on IV Solu-Medrol, and today you are tolerating some oral intake. I am sending you home with several new medications. I would like for you to take Tylenol for pain, probiotic for gut health. I am also sending you home with some vitamin supplements, sleep aids. I would like for you to continue this new steroid, prednisone. As well as the fiber supplement to help add some bulk to your stool. Please try and keep as robust a diet as you can tolerate Please return to the hospital if your symptoms acutely worsen or if you begin having fevers or chills. Please keep your already scheduled follow-up appointment with GI, and reach out to your PCP for hospital follow-up Print Language: Mexican Patient Instructions: Colitis Stand Alone Forms: PCP List Follow-up Care: Chinyere Long PA-C [Primary Care Provider, Family Practice] Vitals documented within 30 minutes of discharge?: Yes
[2025-02-18 14:56] VITALS: BP 101/63; TEMP 97.9; O2SAT 95
== END 2025-02-18 14:56 | disposition home or self-care (01) | DRG 391 ==
LOC: MS2 13:04 → ED 13:04 → MS2 17:19
PROVIDERS: ADMIT Nurse Practitioner Acute Care; ATTEND Nurse Practitioner Acute Care
DX: K57.30 Diverticulosis of large intestine without perforation or abscess without bleeding; E43 Unspecified severe protein-calorie malnutrition; D72.825 Bandemia; R79.89 Other specified abnormal findings of blood chemistry; A09 Infectious gastroenteritis and colitis, unspecified; Z88.0 Allergy status to penicillin; R63.0 Anorexia; G47.00 Insomnia, unspecified; D72.829 Elevated white blood cell count, unspecified; D64.9 Anemia, unspecified; K92.1 Melena; R63.4 Abnormal weight loss; Z68.20 Body mass index [BMI] 20.0-20.9, adult; K52.9 Noninfective gastroenteritis and colitis, unspecified; K50.90 Crohn's disease, unspecified, without complications